=== PATIENT | female | born 1935 | race Hispanic/Latino ===

== ENCOUNTER 2017-10-31 00:01 | Inpatient (IN) | payer MEDICARE ==
[2017-10-31 00:17] VITALS: BMI 25.4
--- NOTE | 2017-10-31 00:22 | ED PDOC ---
Arrival/HPI <Lux Erazo - Last Filed: 10/31/17 01:03> <Delano Drew - Last Filed: 10/31/17 02:12> - General Time Seen by Provider: 10/31/17 00:09 - History of Present Illness Narrative History of Present Illness (Text): 10/31/17 00:19 Patient is a 82F with a PMH of Renal cell carcinoma with brain supervisor final, CAD, COPD, HBV, HTN, HLD, TIA, Seizures who comes to the ED with a CC of 7 bloody bowel movements today. She describes one previous episode earlier this year when she was admitted to a hospital in [place] where they observed her. Today she presents after finding bright red blood in the toilet. She has not other complaints at this time (Lux Erazo) Past Medical History - Infectious Disease Hx of Infectious Diseases: None - Tetanus Immunization Tetanus Immunization: Unknown - Cardiac Hx Coronary Artery Disease: Yes Hx Hypertension: Yes Hx Pacemaker: No - Pulmonary Hx Chronic Obstructive Pulmonary Disease (COPD): Yes - Neurological Hx Seizures: Yes (LAST SEIZURE APR 2015) Hx Transient Ischemic Attacks (TIA): Yes - HEENT Hx HEENT Disorder: Yes Hx Cataracts: Yes Other/Comment: HAS H/O RETINAL DETACHEMENT LEFT EYE - Renal Hx Renal Disorder: Yes Hx Renal Cancer: Yes - Endocrine/Metabolic Hx Endocrine Disorders: No - Hematological/Oncological Hx Blood Disorders: Yes Hx AIDS: No Hx Blood Transfusions: No Hx Blood Transfusion Reaction: No Hx Cancer: Yes (renal and brain cancer) - Integumentary Hx Dermatological Disorder: Yes 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) - Musculoskeletal/Rheumatological Hx Musculoskeletal Disorders: Yes Hx Falls: Yes (Last fall December 2016) Hx Unsteady Gait: Yes - Gastrointestinal Hx Gastrointestinal Disorders: Yes (Small bowel obstruction) Hx Hemorrhoids: Yes Other/Comment: Small bowel obstruction - Genitourinary/Gynecological Hx Genitourinary Disorders: No Hx Reproductive Disorders: No - Psychiatric Hx Depression: No Hx Substance Use: No - Surgical History Hx Coronary Stent: Yes ("many years ago") - Anesthesia Hx Anesthesia: Yes Hx Anesthesia Reactions: No Hx Malignant Hyperthermia: No - Suicidal Assessment Feels Threatened In Home Enviroment: No <Lux Erazo - Last Filed: 10/31/17 01:03> - Provider Review Nursing Documentation Reviewed: Yes <RajendraDelano - Last Filed: 10/31/17 02:12> Family/Social History Family/Social History: Unknown Family HX Smoking Status: Former Smoker Hx Alcohol Use: No Hx Substance Use: No Hx Substance Use Treatment: No <Lux Erazo - Last Filed: 10/31/17 01:03> - Physician Review Nursing Documentation Reviewed: Yes Family/Social History: Unknown Family HX <Delano Drew - Last Filed: 10/31/17 02:12> Allergies/Home Meds <Lux Erazo - Last Filed: 10/31/17 01:03> <RajendraDelano - Last Filed: 10/31/17 02:12> Allergies/Adverse Reactions: Allergies Penicillins Allergy (Verified 10/31/17 00:21) RASH tetanus and diphtheria toxoids [tetanus & diphtheria toxoids] Allergy (Verified 10/31/17 00:21) RASH/DIZZY Home Medications: Home Meds Medication Instructions Recorded Confirmed RX: Amlodipine Besylate [Norvasc] 5 mg PO DAILY 10/03/15 10/31/17 RX: Atorvastatin [Lipitor] 20 mg PO HS 10/03/15 10/31/17 RX: Lamotrigine [Lamictal] 150 mg PO BID 10/03/15 10/31/17 RX: Losartan [Cozaar] 50 mg PO DAILY 10/03/15 10/31/17 RX: Omeprazole 40 mg PO DAILY 10/03/15 10/31/17 Aspirin [Adult Low Dose Aspirin EC] 1 tab PO DAILY 10/31/17 10/31/17 Multivitamin with Iron [Daily Pa[place] 1 tab PO DAILY 10/31/17 10/31/17 with Iron] Review of Systems - Review of Systems Constitutional: Normal Eyes: Normal ENT: Normal Respiratory: Normal Cardiovascular: Normal Gastrointestinal: Hematochezia Genitourinary Female: Normal Musculoskeletal: Normal Skin: Normal Neurological: Normal Endocrine: Normal Hemo/Lymphatic: Normal Psychiatric: Normal <Lux Erazo - Last Filed: 10/31/17 01:03> - Physician Review All systems were reviewed & negative as marked: Yes <Delano Drew - Last Filed: 10/31/17 02:12> Physical Exam Temperature: Afebrile Blood Pressure: Normal Pulse: Regular Respiratory Rate: Normal Appearance: Positive for: Well-Appearing, Non-Toxic, Comfortable Pain Distress: None Mental Status: Positive for: Alert and Oriented X 3 - Systems Exam Head: Present: Atraumatic, Normocephalic Pupils: Present: PERRL Extroacular Muscles: Present: EOMI Conjunctiva: Present: Normal Mouth: Present: Moist Mucous Membranes Neck: Present: Normal Range of Motion Respiratory/Chest: Present: Clear to Auscultation, Good Air Exchange. No: Respiratory Distress, Accessory Muscle Use Cardiovascular: Present: Regular Rate and Rhythm, Normal S1, S2. No: Murmurs Abdomen: Present: Tenderness, Normal Bowel Sounds. No: Distention, Peritoneal Signs Upper Extremity: Present: Normal Inspection. No: Cyanosis, Edema Lower Extremity: Present: Normal Inspection Neurological: Present: GCS=15, CN II-XII Intact, Speech Normal Skin: Present: Warm, Dry, Rashes, Normal Color Psychiatric: Present: Alert, Oriented x 3, Normal Insight <Lux Erazo - Last Filed: 10/31/17 01:03> Medical Decision Making <Lux Erazo - Last Filed: 10/31/17 01:03> <Delano Drew - Last Filed: 10/31/17 02:12> ED Course and Treatment: 10/31/17 01:07 Type and cross H/H is within normal limits. Admit for observation (Lux Erazo) Impression: Pt seen and evaluated with front office medical assistant. Aware and agree with HPI, clinical findings, plan, and management. Pt, whose past medical history includes renal cell carcinoma, CAD, COPD, Hepatitis B, hypertension, hyperlipidemia, TIA, and seizures, presented for multiple episodes of hematochezia today. Plan: -- Labs, blood type and screen -- Chest X-ray -- IV fluids -- Reassess and disposition 10/31/17 01:09 Case discussed with front office medical assistant natural resource economist, who is aware and agrees with plan. (Delano Drew) - Lab Interpretations Lab Results: 10/31/17 00:40 10/31/17 00:40 Lab Results 10/31/17 00:40: Sodium 142, Potassium 3.9, Chloride 104, Carbon Dioxide 31, Anion Gap 11, BUN 17, Creatinine 0.9, Est GFR ( Amer) > 60, Est GFR (Non- Af Amer) 60, Random Glucose 98, Calcium 10.6 H, Magnesium 2.2, Total Bilirubin 0.4, AST 28, ALT 24, Alkaline Phosphatase 60, Total Protein 6.9, Albumin 4.0, Globulin 2.9, Albumin/Globulin Ratio 1.4 10/31/17 00:40: PT 11.0, INR 0.97, APTT 26.3 10/31/17 00:40: WBC 5.1, RBC 4.56, Hgb 13.9, Hct 42.8, MCV 93.9, MCH 30.5, MCHC 32.5, RDW 14.2, Plt Count 196, MPV 10.0, Gran % 52.3, Lymph % (Auto) 35.1 H, [place] % (Auto) 9.7 H, Eos % (Auto) 2.5, Baso % (Auto) 0.4, Gran # 2.68, Lymph # ( Auto) 1.8, [place] # (Auto) 0.5, Eos # (Auto) 0.1, Baso # (Auto) 0.02 - RAD Interpretation Radiology Orders: 10/31/17 00:38 CXR [CHEST PORTABLE] [RAD] Stat - Medication Orders Current Medication Orders: Discontinued Medications Sodium Chloride (Sodium Chloride 0.9%) 500 mls @ 999 mls/hr IV .Q31M STA Stop: 10/31/17 00:53 - PA / SUPERVISOR [employer]MENT / Resident Statement AKI has reviewed & agrees with the documentation as recorded. AKI has examined the patient and agrees with the treatment plan. <Lux Erazo - Last Filed: 10/31/17 01:03> - PA / SUPERVISOR [employer]MENT / Resident Statement AKI has reviewed & agrees with the documentation as recorded. AKI has examined the patient and agrees with the treatment plan. <Delano Drew - Last Filed: 10/31/17 02:12> Disposition/Present on Arrival - Present on Arrival Any Indicators Present on Arrival: No History of DVT/PE: No History of Uncontrolled Diabetes: No Urinary Catheter: No History Surgical Site Infection Following: None - Disposition Have Diagnosis and Disposition been Completed?: Yes Disposition Time: 01:08 Patient Plan: Observation <Lux Erazo - Last Filed: 10/31/17 01:03> <Delano Drew - Last Filed: 10/31/17 02:12> - Disposition Diagnosis: LGI bleed Disposition: HOSPITALIZED Patient Problems: Current Active Problems Problem Status Onset LGI bleed Acute Condition: GUARDED
[2017-10-31] MEDS ORDERED: Sodium Chloride 0.9% 500 ML IV STA (00:23)
[2017-10-31 00:51] LABS: BASO # 0.02 K/mm3 (0.0-2.0); BASO % 0.4 % (0.0-3.0); EOS # 0.1 (0.0-0.7); EOS % 2.5 % (1.5-5.0); GRAN # 2.68 (1.4-6.5); GRAN % 52.3 % (50.0-68.0); HEMOGLOBIN 13.9 g/dL (12.0-16.0); LYMPH # 1.8 (1.2-3.4); LYMPH % 35.1 % (22.0-35.0); MEAN CELL VOLUME 93.9 fl (80.0-105.0); MEAN CORPUSCULAR HEMOGLOBIN 30.5 pg (25.0-35.0); MEAN CORPUSCULAR HGB CONC 32.5 g/dl (31.0-37.0); MONO # 0.5 (0.1-0.6); MONO % 9.7 % (1.0-6.0); RBC 4.56 10^6/uL (3.5-6.1); RED CELL DISTRIBUTION WIDTH 14.2 % (11.5-14.5); WHITE BLOOD COUNT 5.1 10^3/ul (4.5-11.0)
[2017-10-31 01:00] LABS: ALB/GLOB RATIO 1.4 (1.1-1.8); ALT/SGPT 24 U/L (7-56); AST/SGOT 28 U/L (14-36); BLOOD UREA NITROGEN 17 mg/dL (7-21); CALCIUM 10.6 mg/dL (8.4-10.5); GFR AFRICAN-AMERICAN > 60; GFR NON-AFRICAN AMERICAN 60
[2017-10-31 01:04] LABS: INR 0.97 (0.93-1.08)
[2017-10-31 01:05] LABS: PARTIAL THROMBOPLASTIN TIME 26.3 Seconds (25.1-36.5)
--- NOTE | 2017-10-31 01:59 | CP.PCM.HP ---
<Juan Antonio Alexandra - Last Filed: 10/31/17 04:00> History of Present Illness - History of Present Illness History of Present Illness: Chief Complaint: Hematuria and bloody diarrhea HPI: Patient is an 82 year old female with a past medical history of renal cancer (resected w/o chemo/radiation Rx) with brain and nasal skin metastasis, coronary artery disease, diverticulitis, COPD, HBV, hypertension, hyperlipidemia , TIA, Seizures presenting with complaints of hematuria and bloody diarrhea which began on 10/30 around 2 p.m. As per patient she had about 8 episodes of bloody diarrhea. Picture was shown which revealed sara blood in toilet bowl as well as in stool. Patient states she experienced a similar episode in the beginning of September 2017. Patient at the time was seen and observed at a hospital in [place] overnight. Patient followed up with her GI physician Dr. Lai who stated to go to the ED if episode were to occur again. Patient did not follow up with Dr. Linares her receiving specialist/oncologist regarding hematuria in early September. Patient denies dizziness, shortness of breath, abdominal pain, dysuria, increased frequency/urgency, chest pain, fevers, chills, vision changes , nausea, vomiting. PMD: Dr. Hernandez Meds: reviewed Allergies: Penicillins, tetanus and diphtheria toxins PSH: Craniotomy, Coronary stent, hernia repair, removal of renal malignancy FHx: son- due to Lung and Brain Ca at age 55; h/o tobacco abuse SHx: Previous smoker (quit 23 years ago), social alcohol use, denies illicit drug use Labs: WBC 5.1, Hgb 13.9, Hematocrit 42.8, Plt 196, PT 11, INR 0.97, PTT 26.3, Sodium 142, Potassium 3.9, Chloride 104, Bicarbonate 31, BUN 17, Cr 0.9, AST 28 , ALT 24, Alk phos 60 PET scan 08/2017: revealed no evidence of metastasis in head, neck, chest, abdomen, pelvis Present on Admission - Present on Admission Any Indicators Present on Admission: No Review of Systems - Constitutional Constitutional: absent: Anorexia, Chills, Fever, Headache - EENT Eyes: absent: Blurred Vision, Change in Vision Ears: absent: Dizziness - Cardiovascular Cardiovascular: absent: Chest Pain, Diaphoresis, Dyspnea - Respiratory Respiratory: absent: Cough, Dyspnea, Wheezing - Gastrointestinal Gastrointestinal: Diarrhea, Hematochezia, Loose Stools. absent: Abdominal Pain , Hematemesis, Nausea, Vomiting - Genitourinary Genitourinary: Hematuria. absent: Change in Urinary Stream, Difficulty Urinating, Dysuria, Urinary Frequency, Urinary Urgency - Musculoskeletal Musculoskeletal: absent: Arthralgias, Back Pain - Integumentary Integumentary: absent: Changing Lesions, Skin Pain - Neurological Neurological: absent: Disequilibrium, Dizziness, Headaches, Syncope - Psychiatric Psychiatric: absent: Anxiety, Change in Appetite - Endocrine Endocrine: absent: Fatigue, Flushing Past Patient History - Infectious Disease Hx of Infectious Diseases: None - Tetanus Immunizations Tetanus Immunization: Unknown - Past Medical History & Family History Past Medical History?: Yes - Past Social History Smoking Status: Former Smoker - CARDIAC Hx Hypertension: Yes Hx Pacemaker: No - PULMONARY Hx Chronic Obstructive Pulmonary Disease (COPD): Yes - NEUROLOGICAL Hx Seizures: Yes (LAST SEIZURE APR 2015) Hx Transient Ischemic Attacks (TIA): Yes - HEENT Hx HEENT Problems: Yes Hx Cataracts: Yes Other/Comment: HAS H/O RETINAL DETACHEMENT LEFT EYE - RENAL Hx Chronic Kidney Disease: Yes Hx Renal (Kidney) Cancer: Yes - ENDOCRINE/METABOLIC Hx Endocrine Disorders: No - HEMATOLOGICAL/ONCOLOGICAL Hx Blood Disorders: Yes Hx AIDS: No Hx Blood Transfusions: No Hx Blood Transfusion Reaction: No Hx Cancer: Yes (renal and brain cancer) - INTEGUMENTARY Hx Dermatological Problems: Yes 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) - MUSCULOSKELETAL/RHEUMATOLOGICAL Hx Musculoskeletal Disorders: Yes Hx Falls: Yes (Last fall December 2016) Hx Unsteady Gait: Yes - GASTROINTESTINAL Hx Gastrointestinal Disorders: Yes (Small bowel obstruction) Hx Hemorrhoids: Yes Other/Comment: Small bowel obstruction - GENITOURINARY/GYNECOLOGICAL Hx Genitourinary Disorders: No Hx Reproductive Disorders: No - PSYCHIATRIC Hx Depression: No Hx Substance Use: No - SURGICAL HISTORY Hx Coronary Stent: Yes ("many years ago") - ANESTHESIA Hx Anesthesia: Yes Hx Anesthesia Reactions: No Hx Malignant Hyperthermia: No Meds Allergies/Adverse Reactions: Allergies Allergy/AdvReac Type Severity Reaction Status Date / Time Penicillins Allergy RASH Verified 10/31/17 00:21 tetanus and diphtheria Allergy RASH/DIZZY Verified 10/31/17 00:21 toxoids [tetanus & diphtheria toxoids] Physical Exam - Head Exam Head Exam: ATRAUMATIC, NORMAL INSPECTION, NORMOCEPHALIC - Eye Exam Eye Exam: EOMI, Normal appearance - ENT Exam ENT Exam: Mucous Membranes Moist, Normal Exam - Neck Exam Neck exam: Positive for: Normal Inspection - Respiratory Exam Respiratory Exam: Clear to Auscultation Bilateral, Rales (lower left lobe), NORMAL BREATHING PATTERN. absent: Rhonchi, Wheezes - Cardiovascular Exam Cardiovascular Exam: REGULAR RHYTHM, +S1, +S2 - GI/Abdominal Exam GI & Abdominal Exam: Normal Bowel Sounds, Soft - Neurological Exam Neurological exam: Alert, CN II-XII Intact, Oriented x3 - Psychiatric Exam Psychiatric exam: Normal Affect, Normal Mood - Skin Skin Exam: Intact, Normal Color, Warm Results - Labs Result Diagrams: 10/31/17 00:40 10/31/17 00:40 Labs: Laboratory Results - last 24 hr 10/31/17 10/31/17 10/31/17 00:40 00:40 00:40 WBC 5.1 RBC 4.56 Hgb 13.9 Hct 42.8 MCV 93.9 MCH 30.5 MCHC 32.5 RDW 14.2 Plt Count 196 MPV 10.0 Gran % 52.3 Lymph % (Auto) 35.1 H [place] % (Auto) 9.7 H Eos % (Auto) 2.5 Baso % (Auto) 0.4 Gran # 2.68 Lymph # (Auto) 1.8 [place] # (Auto) 0.5 Eos # (Auto) 0.1 Baso # (Auto) 0.02 PT 11.0 INR 0.97 APTT 26.3 Sodium 142 Potassium 3.9 Chloride 104 Carbon Dioxide 31 Anion Gap 11 BUN 17 Creatinine 0.9 Est GFR ( Amer) > 60 Est GFR (Non-Af Amer) 60 Random Glucose 98 Calcium 10.6 H Magnesium 2.2 Total Bilirubin 0.4 AST 28 ALT 24 Alkaline Phosphatase 60 Total Protein 6.9 Albumin 4.0 Globulin 2.9 Albumin/Globulin Ratio 1.4 Assessment & Plan - Assessment and Plan (Free Text) Assessment: Patient is an 82 year old female with a past medical history of renal cancer ( resected w/o chemo/radiation Rx) with brain and nasal skin metastasis, coronary artery disease, diverticulitis, COPD, HBV, hypertension, hyperlipidemia, TIA, Seizures presenting with complaints of hematuria and bloody diarrhea. Plan: Bloody Diarrhea -R/O Mets -Gastroenterology consulted; Dr. Lai -H&H currently stable, series ordered; continue to monitor -NPO except meds -Protonix 40 mg q12h -Coag studies -Hold home aspirin Hematuria -History of renal cancer -Hematology/oncology consulted; Dr. Linares -Renal function within normal limits -Continue to monitor -CT abdomen/pelvis ordered; results pending Hx of brain mets from renal cancer -C/w lamictal Hypertension -Continue with norvasc and cozaar Hyperlipidemia -Continue with statin DVT/GI prophylaxis: SCDs/Protonix <GalBankimchan - Last Filed: 10/31/17 06:59> Results - Vital Signs Recent Vital Signs: Last Vital Signs Temp 98.2 F 10/31/17 03:56 Pulse 78 10/31/17 03:56 Resp 20 10/31/17 03:56 BP 123/69 10/31/17 03:56 Pulse Ox 100 10/31/17 03:07 - Labs Result Diagrams: 10/31/17 00:40 10/31/17 00:40 Labs: Laboratory Results - last 24 hr 10/31/17 03:08 Blood Type O NEGATIVE Antibody Screen Negative BBK History Checked Patient has bt Attending/Attestation - Attestation I have personally seen and examined this patient.: Yes I have fully participated in the care of the patient.: Yes I have reviewed all pertinent clinical information: Yes Notes (Text): 10/31/17 06:52 Patient was seen when she was in bed # 3 in the ER. Medical record was reviewed. Agree with history ,physical examination, assessment and plan.
[2017-10-31] MEDS: Sodium Chloride 0.9% 1,000 ML IV SCH (04:07)
[2017-10-31 07:40] LABS: BASO # 0.03 K/mm3 (0.0-2.0); BASO % 0.7 % (0.0-3.0); EOS # 0.1 (0.0-0.7); EOS % 2.4 % (1.5-5.0); GRAN # 1.87 (1.4-6.5); LYMPH # 2.2 (1.2-3.4); LYMPH % 48.7 % (22.0-35.0); MEAN CELL VOLUME 94.1 fl (80.0-105.0); MEAN CORPUSCULAR HEMOGLOBIN 29.8 pg (25.0-35.0); MEAN CORPUSCULAR HGB CONC 31.7 g/dl (31.0-37.0); MONO # 0.3 (0.1-0.6); MONO % 7.2 % (1.0-6.0); RBC 3.92 10^6/uL (3.5-6.1); RED CELL DISTRIBUTION WIDTH 14.6 % (11.5-14.5); WHITE BLOOD COUNT 4.6 10^3/ul (4.5-11.0)
[2017-10-31 07:43] LABS: HEMOGLOBIN 11.7 g/dL (12.0-16.0)
[2017-10-31 07:44] LABS: INR 1.01 (0.93-1.08); PARTIAL THROMBOPLASTIN TIME 26.1 Seconds (25.1-36.5); PROTHROMBIN TIME 11.6 SECONDS (9.4-12.5)
[2017-10-31 08:07] LABS: ALB/GLOB RATIO 1.3 (1.1-1.8); ALBUMIN 3.2 g/dL (3.0-4.8); ALT/SGPT 23 U/L (7-56); AST/SGOT 21 U/L (14-36); BLOOD UREA NITROGEN 18 mg/dL (7-21); CALCIUM 9.7 mg/dL (8.4-10.5); GFR AFRICAN-AMERICAN > 60; GFR NON-AFRICAN AMERICAN 60
--- NOTE | 2017-10-31 09:32 | RAD ---
HISTORY: sob COMPARISON: Chest radiographs 06/10/2017 FINDINGS: LUNGS: No active pulmonary disease. A calcified granuloma or lymph node is favored over costochondral calcification at the medial right lung base once again, unchanged in appearance. PLEURA: No significant pleural effusion identified, no pneumothorax apparent. CARDIOVASCULAR: Borderline cardiomegaly. No pulmonary vascular derangement identified. OSSEOUS STRUCTURES: No significant abnormalities. VISUALIZED UPPER ABDOMEN: Normal. OTHER FINDINGS: None. IMPRESSION: No interval acute cardiopulmonary disease appreciated.
--- NOTE | 2017-10-31 11:11 | CT ---
PROCEDURE: CT Abdomen and Pelvis without intravenous contrast HISTORY: hematuria/GI bleed COMPARISON: Chest abdomen and pelvis CT with contrast 04/09/2017. TECHNIQUE: Helical CT of the abdomen and pelvis was performed without oral or intravenous contrast as per referring physician request. Contrast Dose: None Radiation dose: Total exam DLP = 351.57 mGy-cm. This CT exam was performed using one or more of the following dose reduction techniques: Automated exposure control, adjustment of the mA and/or kV according to patient size, and/or use of iterative reconstruction technique. FINDINGS: LOWER THORAX: Emphysematous changes are reiterated at the visualized bilateral lung bases. No definite acute findings. Cardiomegaly is stable. No pleural or pericardial effusion. Calcified granuloma again seen at the right lower lobe base. Small hiatal hernia reiterated. LIVER: Stable small lucency at the right hepatic lobe dome with liver otherwise unremarkable appearing. GALLBLADDER AND BILE DUCTS: Unremarkable. PANCREAS: Unremarkable. No gross lesion or ductal dilatation. SPLEEN: Unremarkable. ADRENALS: Unremarkable. No mass. KIDNEYS AND URETERS: No obstructive uropathy bilaterally. Postop changes seen at the upper midpole left kidney impression the site of prior mass seen in left kidney 04/09/2017. Contour regularity appears to been removed surgically. Internal parenchyma of the left kidney is homogeneous and nonfocal but is better characterized by contrast CT. No radiodense urolithiasis identified bilaterally. No significant perinephric reaction identified either. VASCULATURE: Extensive non aneurysmal aortic atherosclerosis again appreciated. BOWEL: Prominent fecal loading is seen throughout the majority of large bowel scattered colonic diverticular changes again seen diffusely but mostly at the sigmoid segment without overt CT sign of diverticulitis in this unenhanced examination. Rectal mural thickening is not excluded however the mid slow rectum is collapsed. APPENDIX: Not identified. No definite CT pattern of appendicitis. PERITONEUM: Unremarkable. No free fluid. No free air. LYMPH NODES: Unremarkable. No enlarged lymph nodes. BLADDER: Unremarkable. REPRODUCTIVE: Fibroid uterine disease reiterated. BONES: No acute fracture. OTHER FINDINGS: None. IMPRESSION: 1. No radiodense urolithiasis involving either kidney or the urinary bladder. Postop changes are suggested involving the left kidney at the site of prior poorly enhancing mass seen in prior CT 04/09/17. Lack of iv contrast limits evaluation of renal parenchyma bilaterally. No obstructive uropathy. 2. Stable hepatic dome lucency. 3. Fibroid uterine changes reiterated. 4. Other lesser findings as per above.
[2017-10-31] MEDS ORDERED: Pneumococcal 23-Valent Vaccine IM ONE (11:32)
[2017-10-31 11:37] LABS: HEMOGLOBIN 11.3 g/dL (12.0-16.0)
[2017-10-31] MEDS ORDERED: Peg-Electrolyte Oral Soln 4L (Golytely) PO ONE (14:00)
--- NOTE | 2017-10-31 16:50 | CON ---
DATE: 10/31/2017 GASTROENTEROLOGY CONSULTATION REQUESTING PHYSICIAN: Mario Carlos MD REASON FOR CONSULTATION: I have been asked to see this 82-year-old female with known history of left renal cancer status post resection with known metastases to the skull and nose, who comes to the hospital with a 2-day history of rectal bleeding. The patient had several episodes of rectal bleeding at home. She denies any aspirin, nonsteroidal use or use of anticoagulants. The patient apparently had a similar episode several weeks ago, for which she was hospitalized overnight in [place]. The patient also noted hematuria. She denies any abdominal pain, nausea, vomiting, fevers, or chills. The patient did have a colonoscopy back in 09/2013, which revealed diverticulosis. She denies any chest pain or shortness of breath. PAST MEDICAL HISTORY: Notable for renal cell carcinoma with mets to the skull and nose. She also has a history of hypertension and hypercholesterolemia. SOCIAL HISTORY: She denies cigarette smoking or alcohol use. REVIEW OF SYSTEMS: A 14-point review of systems is notable for rectal bleeding and hematuria. ALLERGIES: THE PATIENT IS ALLERGIC TO PENICILLIN, TETANUS, AND DIPHTHERIA TOXOIDS. MEDICATIONS AT HOME: Include Norvasc, omeprazole, losartan, Lamictal, atorvastatin, polyethylene glycol, multivitamin. PHYSICAL EXAMINATION: GENERAL: Well-developed female, lying in bed, in no acute distress. VITAL SIGNS: Reveal temperature of 98.2, blood pressure 117/69, heart rate 78. HEENT: Reveal the sclerae to be white. Conjunctivae pink. NECK: Supple. CHEST: Lungs are clear. HEART: Reveals a regular rate and rhythm. ABDOMEN: Soft, nontender. No mass. EXTREMITIES: Show no edema. RECTAL: Shows a presence of dark red blood. No masses seen. LABORATORY DATA: Reveals white blood cell count 4.6, hemoglobin 11.7, and platelet count of 176,000. Her hemoglobin is down from 13.9 approximately 6 hours earlier on admission to the hospital. Chemistries reveal chloride of 112. BUN 18, creatinine 0.9. IMPRESSION: 1. An 82-year-old female with a history of renal cell carcinoma with metastases to the skull and nose with one day of rectal bleeding. I suspect that this is a diverticular bleed. 2. Hematuria. RECOMMENDATIONS: 1. I will schedule the patient for a colonoscopy for the morning. 2. Urology evaluation for hematuria. Dawit Lai MD
[2017-10-31 17:28] LABS: HEMOGLOBIN 11.4 g/dL (12.0-16.0)
--- NOTE | 2017-10-31 23:17 | CARD ---
APPROVED REPORT EKG Measurement Heart [id number] <Conclusion> Sinus rhythm with 1st degree AV block Possible Left atrial enlargement Left axis deviation Left bundle branch block Abnormal ECG
[2017-11-01 00:23] LABS: HEMOGLOBIN 9.3 g/dL (12.0-16.0)
--- NOTE | 2017-11-01 01:47 | CON ---
DATE: 10/31/2017 Consult on the medical floor. For Dr. Linares. CHIEF COMPLAINT: Rectal bleeding. 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 The patient otherwise without complaint. Denies any pain. She was seen resting comfortably, in no acute distress this visit. PAST MEDICAL HISTORY: Significant for renal cancer with seizure disorder; history of TIA; hypertension; hyperlipidemia; GERD; peripheral neuropathy; coronary artery disease with stenting; osteoporosis; right inguinal hernia repair, recent repair; cranioplasty, status post craniectomy for brain tumor by Dr. 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 ALLERGIES: PENICILLIN, TETANUS, AND DIPHTHERIA TOXOIDS. MEDICATIONS: At this time include losartan, Lamictal, Lipitor, Norvasc, Protonix. FAMILY AND SOCIAL HISTORY: Her son due to lung and brain cancer at age 55. History of tobacco use. 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 Patient quit smoking approximately 23 years prior, rare alcohol use, otherwise noncontributory. REVIEW OF SYSTEMS: A 12-point review of systems is done, which is negative to question except for items mentioned in the history of present illness. Patient had a CT scan of her abdomen and pelvis without contrast earlier today. It was read as no radiodense urolithiasis involving either kidney or the urinary bladder, postop changes are suggested involving left kidney at the side of the prior poorly enhanced mass seen in prior CAT scan in April 2017. Lack of IV limits the evaluation, save hepatic dome lucency, fibroid uterine changes reiterated. Her chest x-ray with no active disease. EKG is pending. It should be known patient had a PET CT scan done on 08/25/2017, the impression was metastasis in the head, neck, chest, abdomen, and pelvis. 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 LABORATORY DATA: Patient's labs were done, on admission, white blood cell count of 5.1, hemoglobin of 13.9, hematocrit of 42.8, platelet count of 196,000 with serial hemoglobin showing a hemoglobin of 11.7 at 6:30 this morning, 11.3 value at 11:10 this morning. Her INR is 1.01 with a chem metabolic panel completely within normal range. Her stool for C. difficile was just done, negative for C. difficile antigen and toxin. ASSESSMENT: Acute rectal bleed, questionable hematuria with urinalysis pending. History of seizure disorder, history of cerebrovascular accident, history of renal cancer with brain metastasis, coronary artery, chronic obstructive pulmonary disease, hypertension. PLAN: The plan for this patient is to continue present medical regimen with workup to include serial H and H, at present stable. We will also concur with followup with Dr. Ayala for colonoscopy in a.m. The patient is to continue her present medical regimen as per her attending doctor with further workup as indicated. At present, she is resting comfortably on oxygen 2 liters nasal cannula. Ice chips to keep her oral mucosa moist. We will check a CEA along with iron saturation, TIBC, and ferritin. The prognosis for this patient is guarded. Again, we will type and cross for 2 units of packed red blood cells, keep them on hold with consideration for transfusion should be indicated. This is a complex patient with a comprehensive medically necessary and appropriate visit carried out in excess of 1 hour time in reviewing her records and examining the patient, speaking to patient's nurses regarding her care with her questions answered to her satisfaction. Prognosis for this patient is guarded. We will monitor clinically with labs. Juan Lambert MD
[2017-11-01] MEDS: Sodium Chloride 0.9% 1,000 ML IV SCH (02:27)
[2017-11-01 07:07] LABS: IRON 44 ug/dL (45-180)
[2017-11-01 07:08] LABS: BASO # 0.02 K/mm3 (0.0-2.0); BASO % 0.6 % (0.0-3.0); EOS # 0.1 (0.0-0.7); EOS % 2.6 % (1.5-5.0); GRAN # 1.16 (1.4-6.5); GRAN % 37.3 % (50.0-68.0); HEMOGLOBIN 9.2 g/dL (12.0-16.0); LYMPH # 1.6 (1.2-3.4); LYMPH % 52.1 % (22.0-35.0); MEAN CELL VOLUME 94.4 fl (80.0-105.0); MEAN CORPUSCULAR HEMOGLOBIN 30.4 pg (25.0-35.0); MEAN CORPUSCULAR HGB CONC 32.2 g/dl (31.0-37.0); MEAN PLATELET VOLUME 9.9 fl (7.0-11.0); MONO # 0.2 (0.1-0.6); MONO % 7.4 % (1.0-6.0); RBC 3.03 10^6/uL (3.5-6.1); RED CELL DISTRIBUTION WIDTH 14.7 % (11.5-14.5); WHITE BLOOD COUNT 3.1 10^3/ul (4.5-11.0)
[2017-11-01 07:16] LABS: ALB/GLOB RATIO 1.2 (1.1-1.8); ALBUMIN 2.7 g/dL (3.0-4.8); ALT/SGPT 24 U/L (7-56); AST/SGOT 19 U/L (14-36); BLOOD UREA NITROGEN 12 mg/dL (7-21); CALCIUM 9.4 mg/dL (8.4-10.5); GFR AFRICAN-AMERICAN > 60; GFR NON-AFRICAN AMERICAN > 60
[2017-11-01 07:17] LABS: % IRON SATURATION 16 % (20-55); TOTAL IRON BINDING CAPACITY 279 ug/dL (265-497)
[2017-11-01 07:26] LABS: INR 1.07 (0.93-1.08); PARTIAL THROMBOPLASTIN TIME 26.3 Seconds (25.1-36.5); PROTHROMBIN TIME 12.3 SECONDS (9.4-12.5)
--- NOTE | 2017-11-01 08:41 | CP.PCM.PN ---
Subjective - Date & Time of Evaluation Date of Evaluation: 11/02/17 Time of Evaluation: 07:30 - Subjective Subjective: Heme-onc Progress Note, Leo Marques DO, PGY-2 IM This is an 82 yo F with PMH of renal cancer (resected w/o chemo/radiation Rx) with brain and nasal skin metastasis, coronary artery disease, diverticulitis, COPD, HBV, hypertension, hyperlipidemia, TIA, and seizures who presented with complaints of bloody diarrhea and possible hematuria which began 1 day JOB CHECKER. Heme-onc was consulted for possible hematuria in setting of hx of renal cancer. Patient seen and examined at bedside with daughter present in room. Reports never actually hematuria, just concurrent bloody watery diarrhea with urination. No BM since last night at 10pm (last dose of bowel prep for colonoscopy today), and multiple episodes of clear urination since then. Sometime clots and sometimes just dark blood in toilet bowel when still having bloody diarrhea as per daughter. Patient denies lightheadedness or dizziness at rest in bed, describes orthostatic hypotensive sx when standing up at home but knows to stand still and wait to pass, and both pt and daughter report patient only ever ambulates with family member nearby for help, mimi after using the toilet. Denies shortness of breath, chest pain, nausea, emesis. Objective - Vital Signs/Intake and Output Vital Signs (last 24 hours): Temp Pulse Resp BP Pulse Ox 97.5 F L 81 20 147/76 93 L 10/31/17 16:27 10/31/17 16:27 10/31/17 16:27 10/31/17 16:27 10/31/17 16:27 Intake and Output: 11/01/17 11/01/17 06:59 18:59 Intake Total 0 Balance 0 - Medications Medications: Current Medications Amlodipine Besylate (Norvasc) 5 mg PO DAILY [facility] Last Admin: 10/31/17 09:34 Dose: 5 mg Atorvastatin Calcium (Lipitor) 20 mg PO HS [facility] Last Admin: 10/31/17 21:32 Dose: 20 mg Sodium Chloride (Sodium Chloride 0.9%) 1,000 mls @ 100 mls/hr IV .Q10H [facility] Last Admin: 11/01/17 02:27 Dose: Not Given Potassium Chloride 10 meq/ (Sodium Chloride) 1,005 mls @ 100 mls/hr IV .Q10H3M [facility] Last Admin: 10/31/17 16:22 Dose: 100 mls/hr Lamotrigine (Lamictal) 150 mg PO BID [facility] PRN Reason: Protocol Last Admin: 10/31/17 17:31 Dose: 150 mg Losartan Potassium (Cozaar) 50 mg PO DAILY [facility] Last Admin: 10/31/17 10:43 Dose: 50 mg Pantoprazole Sodium (Protonix Inj) 40 mg IVP Q12 [facility] Last Admin: 10/31/17 21:32 Dose: 40 mg - Labs Labs: 11/01/17 06:20 11/01/17 06:20 PT 12.3 SECONDS (9.4-12.5) 11/01/17 06:20 INR 1.07 (0.93-1.08) 11/01/17 06:20 APTT 26.3 Seconds (25.1-36.5) 11/01/17 06:20 - Constitutional Appears: Non-toxic, No Acute Distress - Head Exam Head Exam: ATRAUMATIC, NORMAL INSPECTION, NORMOCEPHALIC - Eye Exam Eye Exam: EOMI, Normal appearance. absent: Conjunctival injection, Scleral icterus Pupil Exam: absent: Irregular, Unequal - ENT Exam ENT Exam: Mucous Membranes Moist - Neck Exam Neck Exam: Full ROM, Normal Inspection - Respiratory Exam Respiratory Exam: Clear to Ausculation Bilateral, NORMAL BREATHING PATTERN. absent: Rales, Rhonchi, Wheezes - Cardiovascular Exam Cardiovascular Exam: REGULAR RHYTHM, RRR, +S1, +S2. absent: Bradycardia, Tachycardia, Irregular Rhythm, JVD, +S4 - GI/Abdominal Exam GI & Abdominal Exam: Soft, Hyperactive Bowel Sounds. absent: Firm, Guarding, Rigid, Tenderness, Diminished Bowel Sounds, Hypoactive Bowel Sounds, Normal Bowel Sounds, Pulsatile Mass, Rebound - Extremities Exam Extremities Exam: Normal Capillary Refill, Normal Inspection. absent: Calf Tenderness - Back Exam Back Exam: absent: CVA tenderness (L), CVA tenderness (R) - Neurological Exam Neurological Exam: Alert, Awake, Oriented x3 - Psychiatric Exam Psychiatric exam: Normal Affect, Normal Mood - Skin Skin Exam: Dry, Intact, Normal Color, Pallor (mild conjuncival pallor, otherwise normal color), Warm Assessment and Plan - Assessment and Plan (Free Text) Assessment: This is an 82 yo F with PMH of renal cancer (resected w/o chemo/radiation Rx) with brain and nasal skin metastasis, coronary artery disease, diverticulitis, COPD, HBV, hypertension, hyperlipidemia, TIA, and seizures who presented with complaints of bloody diarrhea and possible hematuria which began 1 day JOB CHECKER. Heme-onc was consulted for possible hematuria in setting of hx of renal cancer. Plan: Anemia- worsened Hx renal carcinoma s/p partial nephrectomy and chemo/rads, mets to brain and nasal mucosa BRBPR Hx Diverticular bleeds Hx CVA Hx seizures -From new description from daughter at bedside, never hematuria, only BRBPR -As per GI, hx of diverticular bleed, likely again diverticular bleed, pending colonscopy today -2 units pRBCs on hold currently, Hgb decreased from 11.7 to 9.2, but not tachycardic or hypotensive, may be dilutional effect from fluids vs hemoconcentrated prior to arrival, continue to monitor as per Dr. Linares -Pet Scan Aug 2017 showed no new mets -Iron panel notable for iron 44, tibc 279, %sat 16 -Pending CEA Patient reviewed and discussed with attending, Dr. Linares
[2017-11-01] MEDS ORDERED: Sodium Chloride 0.9% 1,000 ML IV SCH (10:30)
[2017-11-01] MEDS ORDERED: Etomidate 20 mg/10ml Inj IV ONE (10:35)
[2017-11-01] MEDS ORDERED: Midazolam 2 MG/2 ML VIAL ONE ×2 (10:35→10:39)
[2017-11-01] MEDS ORDERED: Propofol 10 mg/ml Inj (20 ML) ONE (10:36)
[2017-11-01 11:18] VITALS: TEMP 97.9
[2017-11-01] MEDS ORDERED: Potassium & Sodium Phosphate PO ONE ×2 (11:30→14:00)
[2017-11-02 06:56] LABS: BASO # 0.03 K/mm3 (0.0-2.0); BASO % 0.9 % (0.0-3.0); EOS # 0.1 (0.0-0.7); EOS % 3.6 % (1.5-5.0); GRAN # 1.19 (1.4-6.5); GRAN % 35.5 % (50.0-68.0); HEMOGLOBIN 8.8 g/dL (12.0-16.0); LYMPH # 1.8 (1.2-3.4); LYMPH % 53.1 % (22.0-35.0); MEAN CELL VOLUME 94.9 fl (80.0-105.0); MEAN CORPUSCULAR HEMOGLOBIN 30.1 pg (25.0-35.0); MEAN CORPUSCULAR HGB CONC 31.8 g/dl (31.0-37.0); MEAN PLATELET VOLUME 9.8 fl (7.0-11.0); MONO # 0.2 (0.1-0.6); MONO % 6.9 % (1.0-6.0); RBC 2.92 10^6/uL (3.5-6.1); RED CELL DISTRIBUTION WIDTH 14.7 % (11.5-14.5); WHITE BLOOD COUNT 3.4 10^3/ul (4.5-11.0)
[2017-11-02 07:22] LABS: ALB/GLOB RATIO 1.2 (1.1-1.8); ALBUMIN 2.7 g/dL (3.0-4.8); ALT/SGPT 26 U/L (7-56); AST/SGOT 23 U/L (14-36); BLOOD UREA NITROGEN 12 mg/dL (7-21); CALCIUM 9.7 mg/dL (8.4-10.5); GFR AFRICAN-AMERICAN > 60; GFR NON-AFRICAN AMERICAN 60
[2017-11-02 07:36] LABS: INR 0.99 (0.93-1.08); PARTIAL THROMBOPLASTIN TIME 26.7 Seconds (25.1-36.5); PROTHROMBIN TIME 11.4 SECONDS (9.4-12.5)
[2017-11-02 08:16] VITALS: BP 133/81; PULSE 73; RESP 18; O2SAT 94
[2017-11-02] MEDS ORDERED: POLYETHYLENE GLYCOL 3350 17 GM/Dose PACKET PO ONE ×2 (08:39→10:50)
--- NOTE | 2017-11-02 16:16 | PN ---
DATE: 11/02/2017 SUBJECTIVE: The patient is sitting in chair, comfortable. She denies any further GI bleeding. She is tolerating solid foods. OBJECTIVE: VITAL SIGNS: Reveal temperature of 97.9, blood pressure 133/81, heart rate 73. HEENT: Reveal sclerae to be white. Conjunctivae pink. NECK: Supple. CHEST: Lungs are clear. HEART: Reveals regular rate and rhythm. ABDOMEN: Soft, nontender. No mass. EXTREMITIES: Show no edema. LABORATORY DATA: Reveals hemoglobin of 8.8, white blood cell count 3.4. BUN 12, creatinine 0.9. IMPRESSION: 1. Lower gastrointestinal bleed, most likely secondary to diverticulosis. 2. Anemia. RECOMMENDATIONS: 1. The patient has been instructed to take iron 65 mg twice a day with food when she gets home. 2. The patient has been instructed to follow up with me in the office in several weeks. 3. The patient has been asked to return to the hospital if she has recurrent GI bleeding. 4. The patient has been asked to stop her baby aspirin. Dawit Lai MD
--- NOTE | 2017-11-02 18:57 | CP.PCM.DIS ---
Provider - Provider Date of Admission: 11/01/17 16:47 Attending physician: Brandon Guillory MD [facility] Course - Lab Results Lab Results: Most Recent Lab Values WBC 3.4 10^3/ul (4.5-11.0) L 11/02/17 06:20 RBC 2.92 10^6/uL (3.5-6.1) L 11/02/17 06:20 Hgb 8.8 g/dL (12.0-16.0) L 11/02/17 06:20 Hct 27.7 % (36.0-48.0) L 11/02/17 06:20 MCV 94.9 fl (80.0-105.0) 11/02/17 06:20 MCH 30.1 pg (25.0-35.0) 11/02/17 06:20 MCHC 31.8 g/dl (31.0-37.0) 11/02/17 06:20 RDW 14.7 % (11.5-14.5) H 11/02/17 06:20 Plt Count 139 10^3/uL (120.0-450.0) 11/02/17 06:20 MPV 9.8 fl (7.0-11.0) 11/02/17 06:20 Gran % 35.5 % (50.0-68.0) L 11/02/17 06:20 Lymph % (Auto) 53.1 % (22.0-35.0) H 11/02/17 06:20 [place] % (Auto) 6.9 % (1.0-6.0) H 11/02/17 06:20 Eos % (Auto) 3.6 % (1.5-5.0) 11/02/17 06:20 Baso % (Auto) 0.9 % (0.0-3.0) 11/02/17 06:20 Gran # 1.19 (1.4-6.5) L 11/02/17 06:20 Lymph # (Auto) 1.8 (1.2-3.4) 11/02/17 06:20 [place] # (Auto) 0.2 (0.1-0.6) 11/02/17 06:20 Eos # (Auto) 0.1 (0.0-0.7) 11/02/17 06:20 Baso # (Auto) 0.03 K/mm3 (0.0-2.0) 11/02/17 06:20 PT 11.4 SECONDS (9.4-12.5) 11/02/17 06:20 INR 0.99 (0.93-1.08) 11/02/17 06:20 APTT 26.7 Seconds (25.1-36.5) 11/02/17 06:20 Sodium 144 mmol/L (132-148) 11/02/17 06:20 Potassium 4.2 mmol/L (3.6-5.0) 11/02/17 06:20 Chloride 112 mmol/L (98-107) H 11/02/17 06:20 Carbon Dioxide 29 mmol/L (21-33) 11/02/17 06:20 Anion Gap 8 (10-20) L 11/02/17 06:20 BUN 12 mg/dL (7-21) 11/02/17 06:20 Creatinine 0.9 mg/dl (0.7-1.2) 11/02/17 06:20 Est GFR ( Amer) > 60 11/02/17 06:20 Est GFR (Non-Af Amer) 60 11/02/17 06:20 Random Glucose 98 mg/dL (70-110) 11/02/17 06:20 Calcium 9.7 mg/dL (8.4-10.5) 11/02/17 06:20 Phosphorus 2.7 mg/dL (2.5-4.5) 11/02/17 06:20 Magnesium 1.9 mg/dL (1.7-2.2) 11/02/17 06:20 Iron 44 ug/dL (45-180) L 11/01/17 06:20 TIBC 279 ug/dL (265-497) 11/01/17 06:20 % Saturation 16 % (20-55) L 11/01/17 06:20 Ferritin 36.4 ng/mL 11/01/17 06:20 Total Bilirubin < 0.1 mg/dL (0.2-1.3) L 11/02/17 06:20 AST 23 U/L (14-36) 11/02/17 06:20 ALT 26 U/L (7-56) 03/27/18 06:20 Alkaline Phosphatase 41 U/L (38-126) 11/02/17 06:20 Total Protein 4.9 g/dL (5.8-8.3) L 11/02/17 06:20 Albumin 2.7 g/dL (3.0-4.8) L 11/02/17 06:20 Globulin 2.2 gm/dL 11/02/17 06:20 Albumin/Globulin Ratio 1.2 (1.1-1.8) 11/02/17 06:20 Carcinoembryonic Ag 5.7 ng/mL (0.0-3.0) H 11/01/17 06:20 Blood Type O NEGATIVE 11/01/17 06:20 Antibody Screen Negative 11/01/17 06:20 Crossmatch See Detail 11/01/17 06:20 BBK History Checked Patient has bt 11/01/17 06:20 Discharge Exam - Head Exam Head Exam: ATRAUMATIC, NORMAL INSPECTION, NORMOCEPHALIC Discharge Plan - Follow Up Plan Condition: GUARDED Disposition: HOME/ ROUTINE Instructions: Polyethylene Glycol 3350, Preventing Falls in the Older Adult, Diverticulitis (DC), Colonoscopy (DC), Gastrointestinal Bleeding (DC) Additional Instructions: 1) Patient to follow up with PMD, Dr. Dawit Hernandez, within one week of discharge. 2) Patient to take any medications as directed. 3) Patient to discontinue aspirin, unless otherwise indicated. 4) Patient to return to the ED for any worsening symptoms. 5) Patient to not take aspirin, NSAID for two weeks. 6) Patient to return to Dr. Lai's office in four weeks. 7) Patient to take Metamucil as recommended by Dr. Lai, GI. Referrals: Dawit Hernandez MD [Family Provider] - Dawit Lai MD [Staff Provider] -
== END 2017-11-02 15:23 | disposition home or self-care (01) | DRG 378 ==
LOC: ED 00:01 → ERH 01:57 → 5RNO 03:47 → OBSVTOIN 11-01 16:47
PROVIDERS: ADMIT Internal Medicine; ATTEND Internal Medicine
PROC: 0DJD8ZZ Inspection of Lower Intestinal Tract, Via Natural or Artificial Opening Endoscopic (ICD-10-PCS; principal; 2017-11-01 10:30)
DX: K57.31 Diverticulosis of large intestine without perforation or abscess with bleeding (principal); K56.609 Unspecified intestinal obstruction, unspecified as to partial versus complete obstruction; C79.51 Secondary malignant neoplasm of bone; C79.31 Secondary malignant neoplasm of brain; G40.909 Epilepsy, unspecified, not intractable, without status epilepticus; D64.9 Anemia, unspecified; J44.9 Chronic obstructive pulmonary disease, unspecified; K21.9 Gastro-esophageal reflux disease without esophagitis; I25.10 Atherosclerotic heart disease of native coronary artery without angina pectoris; M81.0 Age-related osteoporosis without current pathological fracture; E78.00 Pure hypercholesterolemia, unspecified; I10 Essential (primary) hypertension; E78.5 Hyperlipidemia, unspecified; Z85.528 Personal history of other malignant neoplasm of kidney; Z85.828 Personal history of other malignant neoplasm of skin; Z86.73 Personal history of transient ischemic attack (TIA), and cerebral infarction without residual deficits; Z87.891 Personal history of nicotine dependence; Z95.5 Presence of coronary angioplasty implant and graft

== ENCOUNTER 2018-03-21 16:04 | Inpatient (IN) | payer MEDICARE ==
--- NOTE | 2018-03-21 16:27 | ED PDOC ---
Arrival/HPI - General Time Seen by Provider: 03/21/18 16:17 - History of Present Illness Narrative History of Present Illness (Text): 03/21/18 16:27 A 82 year old female, whose past medical history includes renal cancer, presents to the emergency department accompanied by her son complaining of chest pain. Patient's son reports patient stared experiencing left sided facial drooping and loss of voice while visiting her primary care doctor and neurologist. Patients reports she is experiencing chest pain. Patient denies any fever, chills, shortness of breath, nausea, vomiting, back pain, neck pain, headache, dizziness, or any other complaints. PMD: Dr. Hernandez Neurologist: Dr. Montenegro Time/Duration: 4-6 hours Symptom Onset: Gradual Symptom Course: Unchanged Activities at Onset: Light Past Medical History - Provider Review Nursing Documentation Reviewed: Yes - Infectious Disease Hx of Infectious Diseases: None - Tetanus Immunization Tetanus Immunization: Unknown - Cardiac Hx Hypertension: Yes - Pulmonary Hx Chronic Obstructive Pulmonary Disease (COPD): Yes - Neurological Hx Seizures: Yes (LAST SEIZURE APR 2015) Hx Transient Ischemic Attacks (TIA): Yes - HEENT Hx HEENT Disorder: Yes Hx Cataracts: Yes Other/Comment: HAS H/O RETINAL DETACHEMENT LEFT EYE - Renal Hx Renal Disorder: Yes Hx Renal Cancer: Yes - Endocrine/Metabolic Hx Endocrine Disorders: No - Hematological/Oncological Hx Blood Transfusions: No Hx Blood Transfusion Reaction: No - Integumentary Hx Dermatological Disorder: Yes 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) - Musculoskeletal/Rheumatological Hx Musculoskeletal Disorders: Yes Hx Falls: Yes (Last fall December 2016) Hx Unsteady Gait: Yes - Gastrointestinal Hx Gastrointestinal Disorders: Yes (Small bowel obstruction) Hx Hemorrhoids: Yes Other/Comment: Small bowel obstruction - Genitourinary/Gynecological Hx Genitourinary Disorders: No Hx Reproductive Disorders: No - Psychiatric Hx Depression: No Hx Substance Use: No - Surgical History Hx Cardiac Catheterization: Yes - Anesthesia Hx Anesthesia Reactions: No Hx Malignant Hyperthermia: No - Suicidal Assessment Feels Threatened In Home Enviroment: No Family/Social History - Physician Review Nursing Documentation Reviewed: Yes Family/Social History: Unknown Family HX Smoking Status: Former Smoker Hx Alcohol Use: No Hx Substance Use: No Hx Substance Use Treatment: No Allergies/Home Meds Allergies/Adverse Reactions: Allergies Penicillins Allergy (Verified 03/21/18 16:45) RASH tetanus and diphtheria toxoids [tetanus & diphtheria toxoids] Allergy (Verified 03/21/18 16:45) RASH/DIZZY Home Medications: Home Meds Medication Instructions Recorded Confirmed Atorvastatin [Lipitor] 20 mg PO HS 10/03/15 03/21/18 Lamotrigine [Lamictal] 150 mg PO BID 10/03/15 03/21/18 Losartan [Cozaar] 100 mg PO DAILY 10/03/15 03/21/18 Omeprazole 40 mg PO DAILY 10/03/15 03/21/18 Multivitamin with Iron [Daily [place] 1 tab PO DAILY 10/31/17 03/21/18 with Iron] Furosemide [Lasix] 40 mg PO DAILY 03/11/18 03/21/18 Psyllium Husk (with Sugar) 3.4 gm PO DAILY 03/21/18 03/21/18 [Metamucil Smooth Texture] Review of Systems - Physician Review All systems were reviewed & negative as marked: Yes - Review of Systems Constitutional: absent: Fevers, Night Sweats ENT: Other Respiratory: absent: SOB Cardiovascular: Chest Pain Gastrointestinal: absent: Nausea, Vomiting Musculoskeletal: absent: Back Pain, Neck Pain Neurological: absent: Headache, Dizziness Physical Exam Vital Signs Reviewed: Yes Vital Signs Temp Pulse Resp BP Pulse Ox 03/21/18 16:43 97.7 F 62 18 187/92 H 96 Temperature: Afebrile Blood Pressure: Hypertensive Pulse: Regular Respiratory Rate: Normal Appearance: Positive for: Well-Appearing, Non-Toxic, Comfortable Pain Distress: None Mental Status: Positive for: Alert and Oriented X 3 - Systems Exam Head: Present: Atraumatic, Normocephalic Pupils: Present: PERRL Extroacular Muscles: Present: EOMI Conjunctiva: Present: Normal Mouth: Present: Moist Mucous Membranes, Other (slight droop on left side of mouth ) Neck: Present: Normal Range of Motion Respiratory/Chest: Present: Clear to Auscultation, Good Air Exchange. No: Respiratory Distress, Accessory Muscle Use Cardiovascular: Present: Regular Rate and Rhythm, Normal S1, S2. No: Murmurs Abdomen: No: Tenderness, Distention, Peritoneal Signs Back: Present: Normal Inspection Upper Extremity: Present: Normal ROM, Other (diminished sensation to right hand ). No: Cyanosis, Edema, NORMAL PULSES, Tenderness, Swelling, Erythema, Neurovascularly Intact, Temperature Abnormalties, Capillary Refill < 2s, Deformity, Norm 2-Pt Discrimination Lower Extremity: Present: Normal Inspection. No: Edema Neurological: Present: GCS=15, CN II-XII Intact, Speech Normal Skin: Present: Warm, Dry, Normal Color. No: Rashes Psychiatric: Present: Alert, Oriented x 3, Normal Insight, Normal Concentration Medical Decision Making ED Course and Treatment: 03/21/18 16:31 Impression: A 82 year old femalepresents to the emergency department accompanied by her son complaining of chest pain. Plan: -- Type and Screen Stat -- Brain Head CT w/ contrast -- Head W/ contrast -- EKG -- Labs -- Stroke Team consult -- CBC -- COAG -- Chest X-ray -- Reassess and disposition Prior Visits: Notes and results from previous visits were reviewed. Progress Notes: 03/21/18 16:[address] Dasilva, neurologist, who is aware and agrees that patient is not a thrombolysis candidate. He would like to get a CT of Head with Contrast and eventual MRI of brain with contrast tomorrow. 03/21/18 17:03 admit accepted by the hospitalist, dr. koo, patient to be admitted for TIA.CVA , patient not a candidate for thrombolysis due to metastatic cancer hx. patient to be admitted for full workup to eval for CVA. - Lab Interpretations Lab Results: 03/21/18 16:20 03/21/18 16:20 Lab Results 03/21/18 16:20: Sodium 144, Potassium 3.9, Chloride 102, Carbon Dioxide 32, Anion Gap 14, BUN 17, Creatinine 0.9, Est GFR ( Amer) > 60, Est GFR (Non- Af Amer) 60, Random Glucose 94, Calcium 10.3, Total Bilirubin 0.5, AST 38 H D, ALT 27, Alkaline Phosphatase 65, Troponin I < 0.01 D, Total Protein 7.7, Albumin 4.7, Globulin 3.1, Albumin/Globulin Ratio 1.5, Triglycerides 106, Cholesterol 166, LDL Cholesterol Direct 63, HDL Cholesterol 76 H 03/21/18 16:20: PT 10.4, INR 0.91, APTT 27.9 03/21/18 16:20: WBC 5.0 D, RBC 5.01, Hgb 15.2 D, Hct 45.8, MCV 91.4 D, MCH 30.3, MCHC 33.2, RDW 14.2, Plt Count 161, MPV 11.5 H, Gran % 44.6 L, Lymph % ( Auto) 44.9 H, [place] % (Auto) 8.7 H, Eos % (Auto) 1.4 L, Baso % (Auto) 0.4, Gran # 2.22, Lymph # (Auto) 2.2, [place] # (Auto) 0.4, Eos # (Auto) 0.1, Baso # (Auto) 0.02 - RAD Interpretation Narrative RAD Interpretations (Text): 03/21/18 17:04 cxr my read: no focal infiltrate, no ptx, no pleural effusion Radiology Orders: 03/21/18 16:29 HEAD W/O (CODE STROKE) [CT] Stat 03/21/18 16:34 CHEST ONE VIEW [RAD] Stat 03/21/18 16:36 Brain [HEAD W/CONTRAST] [CT] Stat Under Presser: ED Physician - EKG Interpretation EKG Interpretation (Text): 03/21/18 16:56 1615: sinus rhythm at 67 bpm, 1st degree av block, no ectopy, lbbb; lbb is old when compared to ekg on 10.31.2017 Interpreted by ED Physician: Yes - Medication Orders Current Medication Orders: Sodium Chloride (Sodium Chloride 0.9%) 1,000 mls @ 100 mls/hr IV .Q10H [facility] NIHSS Stroke Scale 3 - Date/Time Evaluation Performed Date Performed: 03/21/18 Time Performed: 17:09 When Was NIHSS Performed: Baseline - How Severe is the Stroke Level of Consciousness: 0=Alert LOC to Questions: 0=Both comments correct LOC to commands: 0=Obeys both correctly Best Gaze: 0=Normal Visual: 0=No visual loss Facial: 1=Minor asymmetry Motor Arm - Left: 0=No drift Motor Arm - Right: 0=No drift Motor Leg - Left: 0=No drift Motor Leg - Right: 0=No drift Limb Ataxia: 0=Absent Sensory: 1=Mild to moderate loss Best Language: 0=No aphasia Dysarthia: 0=Normal articulation Extinction & Inattention (Neglect): 0=Normal, no object Score: 2 - Scribe Statement The provider has reviewed the documentation as recorded by the Scribe Brittany Webb All medical record entries made by the Scribe were at my direction and personally dictated by me. I have reviewed the chart and agree that the record accurately reflects my personal performance of the history, physical exam, medical decision making, and the department course for this patient. I have also personally directed, reviewed, and agree with the discharge instructions and disposition. Disposition/Present on Arrival - Present on Arrival Any Indicators Present on Arrival: No History of DVT/PE: No History of Uncontrolled Diabetes: No Urinary Catheter: No History Surgical Site Infection Following: None - Disposition Have Diagnosis and Disposition been Completed?: Yes Diagnosis: CVA (cerebral vascular accident) Disposition: HOSPITALIZED Disposition Time: 17:06 Patient Plan: Admission Patient Problems: Current Active Problems Problem Status Onset CVA (cerebral vascular accident) Acute Condition: FAIR
[2018-03-21 16:43] LABS: BASO # 0.02 K/mm3 (0.0-2.0); BASO % 0.4 % (0.0-3.0); EOS # 0.1 (0.0-0.7); EOS % 1.4 % (1.5-5.0); GRAN # 2.22 (1.4-6.5); GRAN % 44.6 % (50.0-68.0); HEMOGLOBIN 15.2 g/dL (12.0-16.0); LYMPH # 2.2 (1.2-3.4); LYMPH % 44.9 % (22.0-35.0); MEAN CELL VOLUME 91.4 fl (80.0-105.0); MEAN CORPUSCULAR HEMOGLOBIN 30.3 pg (25.0-35.0); MEAN CORPUSCULAR HGB CONC 33.2 g/dl (31.0-37.0); MEAN PLATELET VOLUME 11.5 fl (7.0-11.0); MONO # 0.4 (0.1-0.6); MONO % 8.7 % (1.0-6.0); RBC 5.01 10^6/uL (3.5-6.1); RED CELL DISTRIBUTION WIDTH 14.2 % (11.5-14.5)
[2018-03-21 16:53] LABS: INR 0.91; PARTIAL THROMBOPLASTIN TIME 27.9 Seconds (25.1-36.5); PROTHROMBIN TIME 10.4 SECONDS (9.4-12.5)
[2018-03-21 16:54] LABS: ALB/GLOB RATIO 1.5 (1.1-1.8); ALBUMIN 4.7 g/dL (3.0-4.8); CALCIUM 10.3 mg/dL (8.4-10.5); GFR AFRICAN-AMERICAN > 60; GFR NON-AFRICAN AMERICAN 60; HDL CHOLESTEROL 76 mg/dL (29-60)
[2018-03-21] MEDS: Sodium Chloride 0.9% 1,000 ML IV SCH (17:00)
[2018-03-21 17:03] LABS: ALT/SGPT 27 U/L (7-56); AST/SGOT 38 U/L (14-36); BLOOD UREA NITROGEN 17 mg/dL (7-21)
[2018-03-21 17:06] LABS: LDL CHOLESTEROL 63 mg/dL (0-129)
[2018-03-21 17:09] LABS: TROPONIN I < 0.01 ng/mL
--- NOTE | 2018-03-21 17:46 | CT ---
Date of service: 03/21/2018 PROCEDURE: CT HEAD WITHOUT CONTRAST. HISTORY: r/o stroke COMPARISON: 04/02/2017 CT head. 04/06/2017 MRI brain with without contrast TECHNIQUE: Axial computed tomography images were obtained through the head/brain without intravenous contrast. Coronal and sagittal reconstructed images. Radiation dose: Total exam DLP = 700.95 mGy-cm. This CT exam was performed using one or more of the following dose reduction techniques: Automated exposure control, adjustment of the mA and/or kV according to patient size, and/or use of iterative reconstruction technique. FINDINGS: HEMORRHAGE: No intracranial hemorrhage. BRAIN: No mass effect or edema. Cortical and cerebellar atrophy, periventricular small vessel disease. VENTRICLES: Unremarkable. No hydrocephalus. CALVARIUM: Affecting the calvarium. Portions of the left occipital parietal bone and been removed. PARANASAL SINUSES: Unremarkable as visualized. No significant inflammatory changes. MASTOID AIR CELLS: Unremarkable as visualized. No inflammatory changes. OTHER FINDINGS: None. IMPRESSION: No acute intracranial abnormalities. No significant findings to account for the clinical presentation. Code stroke protocol: Study completed 16:38 Radiologist notified 16:31 Results conveyed verbally at 16:46 Interpretation finalized and available for review 16:47
--- NOTE | 2018-03-21 17:46 | RAD ---
Date of service: 03/21/2018 PROCEDURE: CHEST RADIOGRAPH, 1 VIEW HISTORY: Code Stroke COMPARISON: 02/21/2018 FINDINGS: LUNGS: Pleural-based mass again identified on the left. The finding is marked on the study for review. PLEURA: No pneumothorax or pleural fluid seen. CARDIOVASCULAR: No radiographic findings to suggest acute or significant cardiovascular disease. OSSEOUS STRUCTURES: No significant abnormalities. VISUALIZED UPPER ABDOMEN: Normal. OTHER FINDINGS: None. IMPRESSION: No active pulmonary disease. Pleural-based mass better visualized on prior rib radiographs left pleural space No significant interval change compared to the prior examination(s).
[2018-03-21] MEDS ORDERED: Iodixanol 320 MG/ML 100 ML BOTTLE IV ONE (17:58)
--- NOTE | 2018-03-21 19:09 | CARD ---
APPROVED REPORT Date of service: 03/21/2018 EKG Measurement Heart [id number] <Conclusion> Sinus rhythm with 1st degree AV block Possible Left atrial enlargement Left axis deviation Left bundle branch block Abnormal ECG
[2018-03-21 20:23] VITALS: BMI 22.8
--- NOTE | 2018-03-21 21:39 | CP.PCM.HP ---
<RalphSrikanth - Last Filed: 03/21/18 21:23> History of Present Illness - History of Present Illness History of Present Illness: Srikanth Rosas PGY2 H&P Note for Dr. Charles cc: left sided weakness and facial asymmetry Ms. Nguyen is an 82 year old female with a past medical history of L renal cancer (resected w/o chemo/radiation Rx) with brain and nasal skin metastasis, LBBB, coronary artery disease, diverticulitis, COPD, hypertension, hyperlipidemia, TIA, Seizures who presented to ED with complaints of left sided weakness, pain and slurring of her words and facial droop after seeing several physicians this morning. Per son, the patient went to see Dr. Montenegro (neurology ) and Dr. Hernandez (PMD) this AM, but started experiencing left arm numbness/ tingling, but patient states it has been happening on and off the past week. she also complains of a headache that has now resolved and dizziness. she states that her voice is lost and she has been burping more. she complains of weakness in the left upper and lower extremities. Per son and POA who is at bedside, the patient is seeing Dr. Linares for possible immunotherapy initiation for 3rd L rib mets. Patient denies dizziness, shortness of breath, abdominal pain, dysuria, increased frequency/urgency, chest pain, fevers, chills , vision changes, nausea, vomiting. 12-pt ROS was reviewed and is otherwise unremarkable. PMD: Dr. Hernandez PMH: as above PSH: Craniotomy, Coronary stent, hernia repair, removal of renal malignancy Meds: reviewed Allergies: Penicillins, tetanus and diphtheria toxins FHx: son- due to Lung and Brain Ca at age 55; h/o tobacco abuse SHx: Previous smoker (quit 23 years ago), social alcohol use, denies illicit drug use Present on Admission - Present on Admission Any Indicators Present on Admission: No Review of Systems - Review of Systems All systems: reviewed and no additional remarkable complaints except (as per HPI ) Past Patient History - Infectious Disease Hx of Infectious Diseases: None - Tetanus Immunizations Tetanus Immunization: Unknown - Past Medical History & Family History Past Medical History?: Yes - Past Social History Smoking Status: Former Smoker Alcohol: None Drugs: Denies Home Situation {Lives}: Alone - CARDIAC Hx Hypertension: Yes - PULMONARY Hx Chronic Obstructive Pulmonary Disease (COPD): Yes - NEUROLOGICAL Hx Seizures: Yes (LAST SEIZURE APR 2015) Hx Transient Ischemic Attacks (TIA): Yes - HEENT Hx HEENT Problems: Yes Hx Cataracts: Yes Other/Comment: HAS H/O RETINAL DETACHEMENT LEFT EYE - RENAL Hx Chronic Kidney Disease: Yes Hx Renal (Kidney) Cancer: Yes - ENDOCRINE/METABOLIC Hx Endocrine Disorders: No - HEMATOLOGICAL/ONCOLOGICAL Hx Cancer: Yes - INTEGUMENTARY Hx Dermatological Problems: Yes 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) - MUSCULOSKELETAL/RHEUMATOLOGICAL Hx Musculoskeletal Disorders: Yes Hx Falls: No Hx Unsteady Gait: Yes - GASTROINTESTINAL Hx Gastrointestinal Disorders: Yes (Small bowel obstruction) Other/Comment: Small bowel obstruction - GENITOURINARY/GYNECOLOGICAL Hx Genitourinary Disorders: No - PSYCHIATRIC Hx Depression: No Hx Substance Use: No - SURGICAL HISTORY Hx Surgeries: Yes Hx Cardiac Catheterization: Yes - ANESTHESIA Hx Anesthesia Reactions: No Hx Malignant Hyperthermia: No Meds Allergies/Adverse Reactions: Allergies Allergy/AdvReac Type Severity Reaction Status Date / Time Penicillins Allergy RASH Verified 03/21/18 16:45 tetanus and diphtheria Allergy RASH/DIZZY Verified 03/21/18 16:45 toxoids [tetanus & diphtheria toxoids] Physical Exam - Constitutional Appears: Well, Non-toxic, No Acute Distress - Head Exam Head Exam: ATRAUMATIC, NORMAL INSPECTION - Eye Exam Eye Exam: EOMI, Normal appearance, PERRL - ENT Exam ENT Exam: Mucous Membranes Moist - Neck Exam Neck exam: Positive for: Normal Inspection - Respiratory Exam Respiratory Exam: NORMAL BREATHING PATTERN. absent: Wheezes, Respiratory Distress - Cardiovascular Exam Cardiovascular Exam: RRR, +S1, +S2 - GI/Abdominal Exam GI & Abdominal Exam: Normal Bowel Sounds, Soft. absent: Distended, Tenderness - Extremities Exam Extremities exam: Positive for: full ROM, normal inspection. Negative for: pedal edema - Neurological Exam Neurological exam: Alert, CN II-XII Intact (grossly), Oriented x3 Additional comments: facial sensory decreased on right side facial droop noted left side - Psychiatric Exam Psychiatric exam: Normal Mood - Skin Skin Exam: Warm Results - Vital Signs Recent Vital Signs: Last Vital Signs Temp 97.6 F 03/21/18 20:03 Pulse 67 03/21/18 20:03 Resp 20 03/21/18 20:03 BP 150/75 03/21/18 20:03 Pulse Ox 97 03/21/18 19:20 - Labs Result Diagrams: 03/21/18 16:20 03/21/18 16:20 Labs: Laboratory Results - last 24 hr 03/21/18 17:25 POC Glucose (mg/dL) 84 Assessment & Plan - Assessment and Plan (Free Text) Assessment: 82 year old female with a past medical history of L renal cancer ( resected w/o chemo/radiation Rx) with brain and nasal skin metastasis, LBBB, coronary artery disease, diverticulitis, COPD, hypertension, hyperlipidemia, TIA , Seizures who presented to ED with complaints of left sided weakness, pain and slurring of her words and facial droop. Neurology was consulted and agree patient is not a tPA candidate. Head CT was done and showed no acute intracranial abnormalities. Plan: Acute stroke symptoms, improving - monitor patient on telemetry floor - neurology consulted, recs appreciated - brain MRI pending - CT Head w/ contrast ordered - carotid US ordered - NPO diet - aspiration precautions - seizure precautions - fall risk - nurse swallow screen - swallow eval pending - PT eval pending - con tstatin Chest pain - troponin q6 to r/o RI - cardiology consulted, recs appreciated - cont Lasix home dose Hx seizures - cont lamictal home dose PPX - lovenox 40mg daily - SCDs Case was reviewed and discussed with attending, Dr. Melvin Rosas PGY2 <Ella Charles R - Last Filed: 03/22/18 09:33> Results - Vital Signs Recent Vital Signs: Last Vital Signs Temp 97.7 F 03/22/18 06:00 Pulse 60 03/22/18 06:00 Resp 17 03/22/18 06:00 BP 138/82 03/22/18 06:00 Pulse Ox 94 L 03/22/18 06:00 - Labs Result Diagrams: 03/22/18 05:40 03/22/18 05:40 Labs: Laboratory Results - last 24 hr 03/21/18 03/21/18 03/22/18 17:25 22:18 00:55 WBC RBC Hgb Hct MCV MCH MCHC RDW Plt Count MPV Sodium Potassium Chloride Carbon Dioxide Anion Gap BUN Creatinine Est GFR ( Amer) Est GFR (Non-Af Amer) POC Glucose (mg/dL) 84 87 Random Glucose Calcium Phosphorus Magnesium Total Bilirubin AST ALT Alkaline Phosphatase Lactate Dehydrogenase 398 Total Creatine Kinase 68 Troponin I < 0.01 Total Protein Albumin Globulin Albumin/Globulin Ratio 03/22/18 03/22/18 05:40 05:40 WBC 4.1 L RBC 4.56 Hgb 13.7 Hct 41.8 MCV 91.7 MCH 30.0 MCHC 32.8 RDW 14.2 Plt Count 146 MPV 10.3 Sodium 144 Potassium 4.0 Chloride 109 H Carbon Dioxide 29 Anion Gap 10 BUN 12 Creatinine 0.8 Est GFR ( Amer) > 60 Est GFR (Non-Af Amer) > 60 POC Glucose (mg/dL) Random Glucose 88 Calcium 9.5 Phosphorus 2.6 Magnesium 2.1 Total Bilirubin 0.5 AST 25 ALT 24 Alkaline Phosphatase 51 Lactate Dehydrogenase 426 Total Creatine Kinase 62 Troponin I < 0.01 Total Protein 5.8 Albumin 3.4 Globulin 2.4 Albumin/Globulin Ratio 1.4 Attending/Attestation - Attestation I have personally seen and examined this patient.: Yes I have fully participated in the care of the patient.: Yes I have reviewed all pertinent clinical information: Yes Notes (Text): Patient seen and examined by me at 5:40PM with resident 03/21/18. Case including HPI, physical exam, and assessment and plan discussed with resident. Agree with above with following additions/corrections. 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 Patient's son and healthcare proxy bedside. History taken from both son and patient with patient's permission. Patient's son states the patient had an appointment with her neurologist in the morning. She then went to her primary care doctor's office. At her primary care doctor's office, patient complained of left-sided facial droop and some numbness. Per patient and son this has happened many times in the past. Per son patient had previously been diagnosed with TIAs however it was done discovered that patient was having seizures. Patient's primary care doctor sent patient back to patient's neurologist Dr. Montenegro. On the way back to the neurologist office, patient started to have left-sided chest pain radiating into her left arm with associated nausea. She also had associated headache and dizziness. Patient states that the pain in the chest is a "gas pain." Pain does not radiate into her jaw but does radiate into the left arm. She also complains of left arm and left leg weakness and pain. Per son, patient also started to lose her voice. Per son, she was unable to ambulate. When they reached the neurologist office and described symptoms to the nurse, patient was sent to the emergency room. Patient states that she is still having chest pain and left arm and left leg pain and weakness. Headache has resolved. Nausea has resolved. Still with some dizziness. No change in vision. Still with slight left-sided facial. No diarrhea or constipation. No fevers or chills. No dysuria. 12 point review systems reviewed by me. Please see HPI. All other systems are negative. Family history: Mother in her 90s of old age, father at the age of 46 of a heart attack Social history: Patient lives alone. This is a cane on occasion to ambulate. Drinks very little red wine every night. Patient is a former smoker quit approximately 23 years ago and smoked for 30-40 years. No illicit drug use Physical exam: General: Awake and alert sitting up in bed in no acute distress HEENT: Normocephalic atraumatic. Pupils equal reactive. No scleral icterus. Oropharynx is pink and moist, no pharyngeal erythema or exudate appreciated. Neck is supple. Hearing is grossly intact. Cardiovascular: Normal rhythm. Normal S1, S2. No murmurs, rubs, or gallops appreciated Pulmonary: Normal respiratory effort. No rhonchi, rales or wheezing appreciated. Gastrointestinal: Soft, nontender, nondistended, positive bowel sounds all 4 quadrants, no guarding. Musculoskeletal: Normal range of motion all extremities, no calf tenderness, mild lower extremity pitting edema bilaterally (chronic per son) Central nervous system: AAO x 3. Slight left facial droop. Decreased voice. 5 out of 5 muscle strength all extremities. 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 1. Left-sided facial droop. Left-sided weakness and pain. Code stroke was called in the emergency room. Neurology consulted, follow-up recommendations. Head CT per radiologist shows no acute intracranial abnormalities. Follow-up carotid Dopplers and 2-D echo. Follow-up serial troponin. Patient given aspirin rectally. Speech and swallow eval. PT eval and treat. Monitor on telemetry. Continue statin. Fall risk precautions. 2. Chest pain. Patient with history of coronary artery disease. Rule out ACS. Aspirin given rectally in the emergency room. Patient's bicycle rental clerk Dr. Saenz consulted, follow up recommendations. Follow up serial troponin. Follow-up lipid panel. Continue aspirin, Lipitor, and Cozaar when patient is able tolerate by mouth. Monitor on telemetry 3. Coronary artery disease status post stent placement. Patient's bicycle rental clerk Dr. Saenz consulted, follow up recommendations. Continue aspirin, Lipitor, and Cozaar when patient is able tolerate by mouth. Monitor on telemetry 4. History of seizure disorder. Continue home Lamictal. Seizure precautions. Neurology consulted, follow-up recommendations. 5. Metastatic renal cell carcinoma. Patient follows with hematology/oncology as an outpatient. Per son, patient likely to have immunotherapy. Patient to continue follow-up with oncologist. 6. Essential hypertension. Continue home Cozaar and Lasix when able to tolerate by mouth. We'll monitor blood pressure and add IV medications if needed. 7. Bilateral lower extremity edema. Will get Dopplers to rule out DVT. 2-D echo pending. Continue home Lasix when able to tolerate by mouth. 8. History of COPD. patient is not on any medications at home. No acute exacerbation. Monitor for now. Case was discussed in detail with the patient and patient's son at bedside regarding current diagnosis and treatment plan.
[2018-03-22 01:31] LABS: TROPONIN I < 0.01 ng/mL
[2018-03-22 06:35] LABS: HEMOGLOBIN 13.7 g/dL (12.0-16.0); MEAN CELL VOLUME 91.7 fl (80.0-105.0); MEAN CORPUSCULAR HGB CONC 32.8 g/dl (31.0-37.0); MEAN PLATELET VOLUME 10.3 fl (7.0-11.0); RBC 4.56 10^6/uL (3.5-6.1); RED CELL DISTRIBUTION WIDTH 14.2 % (11.5-14.5); WHITE BLOOD COUNT 4.1 10^3/ul (4.5-11.0)
[2018-03-22 06:59] LABS: TROPONIN I < 0.01 ng/mL
[2018-03-22 07:07] LABS: ALB/GLOB RATIO 1.4 (1.1-1.8); ALBUMIN 3.4 g/dL (3.0-4.8); ALT/SGPT 24 U/L (7-56); AST/SGOT 25 U/L (14-36); BLOOD UREA NITROGEN 12 mg/dL (7-21); CALCIUM 9.5 mg/dL (8.4-10.5); GFR AFRICAN-AMERICAN > 60; GFR NON-AFRICAN AMERICAN > 60
--- NOTE | 2018-03-22 08:23 | CT ---
Date of service: 03/21/2018 PROCEDURE: CT HEAD WITH CONTRAST HISTORY: TIA, hx met cancer to brain COMPARISON: 03/21/2018 TECHNIQUE: Axial computed tomography images were obtained through the head/brain with intravenous contrast. Contrast dose: Radiation dose: Total exam DLP = 655 mGy-cm. This CT exam was performed using one or more of the following dose reduction techniques: Automated exposure control, adjustment of the mA and/or kV according to patient size, and/or use of iterative reconstruction technique. FINDINGS: HEMORRHAGE: No intracranial hemorrhage. BRAIN: No mass, mass effect or edema. No abnormal intracranial enhancement. Chronic microvascular changes are seen in the periventricular and deep white matter. VENTRICLES: Unremarkable. No hydrocephalus. CALVARIUM: There is a craniotomy defect in the left parietal skull PARANASAL SINUSES: Unremarkable as visualized. No significant inflammatory changes. MASTOID AIR CELLS: Unremarkable as visualized. No mastoid effusion. OTHER FINDINGS: The report concurs with the preliminary [facility] report IMPRESSION: No enhancing lesions to suggest metastatic disease
--- NOTE | 2018-03-22 09:14 | CARD ---
APPROVED REPORT Date of service: 03/22/2018 EKG Measurement Heart [id number] 248P9 [id number] <Conclusion> Sinus rhythm with 1st degree AV block Left axis deviation Left bundle branch block Abnormal ECG
[2018-03-22] MEDS ORDERED: [UNRECOGNIZED DRUG - OTHER] PO SCH (10:00)
[2018-03-22] MEDS ORDERED: PSYLLIUM HUSK 3.4 GM PO SCH (10:00)
[2018-03-22] MEDS ORDERED: Non Formulary Medication (Omeprazole [Omeprazole] 40 MG) PO SCH (10:00)
[2018-03-22] MEDS ORDERED: Enoxaparin 40 mg Syringe SC SCH (10:00)
--- NOTE | 2018-03-22 10:53 | US ---
HISTORY: Leg pain and swelling. Evaluate for DVT PHYSICIAN(S): Nilson Perry MD. TECHNIQUE: Duplex sonography and color-flow Doppler with graded compression were used to evaluate the deep venous systems of both lower extremities. FINDINGS: The visualized deep venous systems of both lower extremities are sonographically normal and compressible. Normal wave forms and augmentation are seen. There is no sonographic evidence for deep venous thrombosis in the visualized segments of both lower extremities. IMPRESSION: No sonographic evidence for deep venous thrombosis in the visualized segments of both lower extremities.
--- NOTE | 2018-03-22 10:59 | US ---
PROCEDURE: Bilateral carotid artery duplex ultrasound HISTORY: Carotid stenosis CVA PHYSICIAN(S): iNlson Perry MD. TECHNIQUE: Duplex sonography and color-flow Doppler were used to evaluate the carotid bifurcations and limited segments of the vertebral arteries bilaterally. FINDINGS: There is mild diffuse smooth heterogeneous plaque noted at the carotid bifurcations bilaterally. The peak systolic velocity in the proximal right internal carotid artery is 89 cm/sec. This corresponds to a 20 to 39% proximal right ICA stenosis. Normal systolic velocities are noted in the proximal right external carotid artery. There is antegrade flow in the right vertebral artery. The peak systolic velocity in the proximal left internal carotid artery is 74 cm/sec. This corresponds to a 20 to 39% proximal left ICA stenosis. Normal systolic velocities are noted in the proximal left external carotid artery. There is antegrade flow in the left vertebral artery. IMPRESSION: 1. Bilateral 20-39% proximal ICA stenoses. 2. Antegrade flow in both vertebral arteries.
[2018-03-22] MEDS: Psyllium Packet PO SCH (11:29)
[2018-03-22] MEDS: MULTIVITAMIN WITH IRON PO SCH (11:30)
[2018-03-22] MEDS: Pantoprazole 40 mg EC Tab PO SCH (11:30)
--- NOTE | 2018-03-22 12:17 | CON ---
Copied To: Nilson Saenz MD Attending MD: Nilson Saenz MD DATE: 03/22/2018 CARDIOLOGY CONSULTATION HISTORY OF PRESENT ILLNESS: The patient is well-known to me. She presented with intermittent facial drooping and an episode of chest pain. She had a similar episode recently, which prompted a stress test, which was done earlier this month. Her stress test showed good LV function with no evidence for ischemia. The patient suffers from hypercholesterolemia as well as hypertension. She has had a stent placed in the past, which was remotely. The patient is currently in MRI, obtaining evaluation of her neurologic status. PHYSICAL EXAMINATION: VITAL SIGNS: Blood pressure is 138/82, heart rate is in the 60s. Her EKG shows nonspecific ST-T changes. LABORATORY DATA: Troponins are negative. IMPRESSION: If the patient has no further symptoms related to her chest discomfort and her troponins are negative, we can follow her as an outpatient. Nilson Saenz MD
--- NOTE | 2018-03-22 13:21 | CP.PCM.PN ---
<Sudhakar Wise - Last Filed: 03/22/18 16:05> Subjective - Date & Time of Evaluation Date of Evaluation: 03/22/18 Time of Evaluation: 13:19 - Subjective Subjective: Internal Medicine Progress Note for Dr. Ella Wise PGY1 82F seen and evaluated at bedside this morning. No acute events overnight. Patient complains of some epigastric pain and left arm pain otherwise is doing well. During the encounter she lost her voice and a facial droop was more apparent and it resolved within 5 minutes. She states this happens sporadically throughout the day. Patient is currently NPO. She has not ambulated since admission. She has not had a bowel movement in 2 days. Denies fever, chills, nausea, vomiting, shortness of breath, dizziness, chest pain, or urinary symptoms. Objective - Vital Signs/Intake and Output Vital Signs (last 24 hours): Temp Pulse Resp BP Pulse Ox 99.1 F 66 18 167/91 H 94 L 03/22/18 11:35 03/22/18 11:35 03/22/18 11:35 03/22/18 11:35 03/22/18 06:00 Intake and Output: 03/22/18 03/22/18 06:59 18:59 Intake Total 1000 Balance 1000 - Medications Medications: Current Medications Aspirin (Aspirin Chewable) 81 mg PO DAILY [facility] Last Admin: 03/22/18 11:29 Dose: Not Given Atorvastatin Calcium (Lipitor) 20 mg PO HS [facility] Last Admin: 03/21/18 21:49 Dose: Not Given Furosemide (Lasix) 40 mg PO DAILY [facility] Last Admin: 03/22/18 11:30 Dose: Not Given Sodium Chloride (Sodium Chloride 0.9%) 1,000 mls @ 100 mls/hr IV .Q10H [facility] Last Admin: 03/21/18 17:00 Dose: 100 mls/hr Lamotrigine (Lamictal) 150 mg PO BID [facility] PRN Reason: Protocol Last Admin: 03/22/18 11:30 Dose: Not Given Losartan Potassium (Cozaar) 100 mg PO DAILY [facility] Last Admin: 03/22/18 11:29 Dose: Not Given Non-Formulary Medication (Multivitamin With Iron [Daily Paola With Iron]) 1 tab PO DAILY [facility] Last Admin: 03/22/18 11:30 Dose: Not Given Pantoprazole Sodium (Protonix Ec Tab) 40 mg PO ACB [facility] Last Admin: 03/22/18 11:30 Dose: Not Given Psyllium Hydrophilic Mucilloid (Hydrocil Instant) 1 pkt PO DAILY [facility] Last Admin: 03/22/18 11:29 Dose: Not Given - Labs Labs: 03/22/18 05:40 03/22/18 05:40 PT 10.4 SECONDS (9.4-12.5) 03/21/18 16:20 INR 0.91 03/21/18 16:20 APTT 27.9 Seconds (25.1-36.5) 03/21/18 16:20 - Constitutional Appears: Well, Non-toxic, No Acute Distress - Head Exam Head Exam: ATRAUMATIC, NORMAL INSPECTION, NORMOCEPHALIC - Eye Exam Eye Exam: EOMI, PERRL - ENT Exam ENT Exam: Mucous Membranes Moist - Respiratory Exam Respiratory Exam: Clear to Ausculation Bilateral, NORMAL BREATHING PATTERN - Cardiovascular Exam Cardiovascular Exam: REGULAR RHYTHM, +S1, +S2. absent: Murmur - GI/Abdominal Exam GI & Abdominal Exam: Soft, Normal Bowel Sounds. 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 Plan: 1. Left sided facial droop, weakness - Code Stroke in the Emergency Department - Currently on telemetry - CT head: no acute findings - Carotid US: 20-39% stenosis of ICA bilaterally - Pending MRI brain read - Neurology consulted, recommendations appreciated - Pending Speech and Swallow evaluation - Pending PT evaluation - Seizure precautions - Fall precautions - NPO, NS @100 2. Chest Pain - Troponins negative x3 - Lipid panel wnl - TSH wnl - Cardiology, Dr Saenz consulted: If not symptomatic, patient should follow up as outpatient. - Continue with home medications, Lipitor, Cozaar, Aspirin, when tolerating by mouth 3. Intermittent Aphasia - Residual effects of CVA vs. Mass effect secondary to metastases vs. seizures vs. somatiform disorder - Neurology consulted, recommendations appreciated - Pending CT neck 4. History of Seizures - Continue with Lamictal - Neurology consulted, recommendations appreciated - Seizure precautions 5. 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 Linares outpatient. Recently discussed Immunotherapy if approved by Medicare - Heme/Onc, Dr. Linares consulted recommendations appreciated 6. Hypertension - Continue with home medications when able to tolerate by mouth - Will continue to monitor BP 7. Bilateral lower extremity edema, improving - Continue Lasix when tolerating by mouth - Duplex LE US: negative 8. History of COPD - No acute exacerbation - Will continue to monitor GI: Protonix DVT: SCDs Diet: NPO Patient seen and case discussed with Dr. Melvin Wise PGY1 <Ella Charles R - Last Filed: 03/23/18 07:30> Objective - Vital Signs/Intake and Output Vital Signs (last 24 hours): Temp Pulse Resp BP Pulse Ox 98.2 F 63 19 158/99 H 97 03/23/18 06:00 03/23/18 06:00 03/23/18 06:00 03/23/18 06:00 03/23/18 06:00 Intake and Output: 03/23/18 03/23/18 06:59 18:59 Intake Total 1560 Balance 1560 - Medications Medications: Current Medications Aspirin (Aspirin Chewable) 81 mg PO DAILY [facility] Last Admin: 03/22/18 11:29 Dose: Not Given Atorvastatin Calcium (Lipitor) 20 mg PO HS [facility] Last Admin: 03/22/18 21:39 Dose: 20 mg Furosemide (Lasix) 40 mg PO DAILY [facility] Last Admin: 03/22/18 11:30 Dose: Not Given Sodium Chloride (Sodium Chloride 0.9%) 1,000 mls @ 100 mls/hr IV .Q10H [facility] Last Admin: 03/22/18 18:11 Dose: 100 mls/hr Lamotrigine (Lamictal) 150 mg PO BID [facility] PRN Reason: Protocol Last Admin: 03/22/18 18:09 Dose: 150 mg Losartan Potassium (Cozaar) 100 mg PO DAILY [facility] Last Admin: 03/22/18 11:29 Dose: Not Given Non-Formulary Medication (Multivitamin With Iron [Daily Paola With Iron]) 1 tab PO DAILY [facility] Last Admin: 03/22/18 11:30 Dose: Not Given Pantoprazole Sodium (Protonix Ec Tab) 40 mg PO ACB [facility] Last Admin: 03/22/18 11:30 Dose: Not Given Psyllium Hydrophilic Mucilloid (Hydrocil Instant) 1 pkt PO DAILY [facility] Last Admin: 03/22/18 11:29 Dose: Not Given - Labs Labs: 03/22/18 05:40 03/22/18 05:40 PT 10.4 SECONDS (9.4-12.5) 03/21/18 16:20 INR 0.91 03/21/18 16:20 APTT 27.9 Seconds (25.1-36.5) 03/21/18 16:20 Attending/Attestation - Attestation I have personally seen and examined this patient.: Yes I have fully participated in the care of the patient.: Yes I have reviewed all pertinent clinical information, including history, physical exam and plan: Yes Notes (Text): Patient seen and examined by me at 10AM with resident 03/22/18. Case including HPI, physical exam, and assessment and plan discussed with resident. Agree with above with following additions/corrections. Patient states that she is feeling ok today. States she is still having intermittent loss of voice and left facial droop. She states that chest pain has improved. She denies and left arm pain or weakness. She states she is still having some left leg pain. No headaches or dizziness. No fevers or chills. No nausea, vomiting, or abdominal pain. No change in vision. No shortness of breath. No dysuria. Physical exam: General: Awake and alert sitting up in bed in no acute distress HEENT: Normocephalic atraumatic. Pupils equal reactive. No scleral icterus. Oropharynx is pink. Positive dry mucous membranes. No pharyngeal erythema or exudate appreciated. Neck is supple. Cardiovascular: Normal rhythm. Normal S1, S2. No murmurs, rubs, or gallops appreciated Pulmonary: Normal respiratory effort. No rhonchi, rales or wheezing appreciated. Gastrointestinal: Soft, nontender, nondistended, positive bowel sounds all 4 quadrants, no guarding. Musculoskeletal: Normal range of motion all extremities, no calf tenderness, mild lower extremity pitting edema bilaterally (chronic per son) Central nervous system: AAO x 3. Slight left facial droop. Decreased voice. 5/ 5 muscle strength all extremities. 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 1. Left-sided facial droop. Left-sided weakness and pain. Intermittent loss of voice. Neurology consulted, follow-up recommendations. Head CT 03/21/18 per radiologist shows no acute intracranial abnormalities. Repeat head CT today 03/22 per radiologist showed no enhancing lesions to show metastatic disease. Carotid Dopplers per radiologist showed bilateral 20-39%proximal ICA stenosis, antegrade flow in both vertebral arteries. 2-D echo pending. Speech and swallow evaluation pending. PT eval and treat. Continue ASA and Lipitor. Continue to monitor on telemetry. Continue fall risk precautions. Pending Brain MRI. Will order CT neck to rule out any pathology causing intermittent loss of voice. 2. Chest pain. Patient with history of coronary artery disease. ACS ruled out. Troponins within normal limits. Continue ASA, lipitor, and cozaar. Discussed with Cardiology Dr. Saenz, patient to follow up outpatient in office. Recent stress test within normal limits. Continue to monitor on telemetry. 3. Coronary artery disease status post stent placement. Stable. Continue aspirin , Lipitor, and Cozaar. Contineu to monitor on telemetry 4. History of seizure disorder. Continue home Lamictal. Seizure precautions. Neurology consulted, follow-up recommendations. 5. Metastatic renal cell carcinoma. Patient follows with hematology/oncology as an outpatient. Per son, patient likely to have immunotherapy. Patient's oncologist Dr. Patten consulted, follow up recommendations. 6. Essential hypertension. Continue home Cozaar and Lasix when able to tolerate by mouth. Add IV medications if needed. 7. Bilateral lower extremity edema. Lower extremity venous dopplers negative for DVT. 2-D echo pending. Continue home Lasix when able to tolerate by mouth. 8. History of COPD. Patient is not on any medications at home. No acute exacerbation. Monitor for now. Case was discussed in detail with the patient and patient's son at bedside regarding current diagnosis and treatment plan.
[2018-03-22] MEDS ORDERED: Iohexol 350 MG/100 ML VIAL ONE (13:25)
--- NOTE | 2018-03-22 15:16 | CP.PCM.CON ---
History of Present Illness - History of Present Illness History of Present Illness: Called last night about elinor humphrey for acute facial droop that resolved and was not deemed to be a TPA candidate Today, consult called for dr. carey. Will await recommendations from him. Our team signing off. Please reconsult prn. Thank you Dr. terry Past Patient History - Infectious Disease Hx of Infectious Diseases: None - Tetanus Immunizations Tetanus Immunization: Unknown - Past Medical History & Family History Past Medical History?: Yes - Past Social History Smoking Status: Former Smoker Alcohol: None Drugs: Denies Home Situation {Lives}: Alone - CARDIAC Hx Cardiac Disorders: Yes - PULMONARY Hx Chronic Obstructive Pulmonary Disease (COPD): Yes - NEUROLOGICAL Hx Seizures: Yes (LAST SEIZURE APR 2015) Hx Transient Ischemic Attacks (TIA): Yes - HEENT Hx HEENT Problems: Yes Hx Cataracts: Yes Other/Comment: HAS H/O RETINAL DETACHEMENT LEFT EYE - RENAL Hx Chronic Kidney Disease: Yes Hx Renal (Kidney) Cancer: Yes - ENDOCRINE/METABOLIC Hx Endocrine Disorders: No - HEMATOLOGICAL/ONCOLOGICAL Hx Cancer: Yes (renal, skin) - INTEGUMENTARY Hx Dermatological Problems: Yes 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) - MUSCULOSKELETAL/RHEUMATOLOGICAL Hx Musculoskeletal Disorders: Yes Hx Falls: No Hx Unsteady Gait: Yes - GASTROINTESTINAL Hx Gastrointestinal Disorders: Yes (Small bowel obstruction) Other/Comment: Small bowel obstruction - GENITOURINARY/GYNECOLOGICAL Hx Genitourinary Disorders: No - PSYCHIATRIC Hx Depression: No Hx Substance Use: No - SURGICAL HISTORY Hx Surgeries: Yes Hx Cardiac Catheterization: Yes - ANESTHESIA Hx Anesthesia Reactions: No Hx Malignant Hyperthermia: No Meds Allergies/Adverse Reactions: Allergies Allergy/AdvReac Type Severity Reaction Status Date / Time Penicillins Allergy RASH Verified 03/21/18 16:45 tetanus and diphtheria Allergy RASH/DIZZY Verified 03/21/18 16:45 toxoids [tetanus & diphtheria toxoids] - Medications Medications: Current Medications Aspirin (Aspirin Chewable) 81 mg PO DAILY [facility] Last Admin: 03/22/18 11:29 Dose: Not Given Atorvastatin Calcium (Lipitor) 20 mg PO HS [facility] Last Admin: 03/21/18 21:49 Dose: Not Given Furosemide (Lasix) 40 mg PO DAILY [facility] Last Admin: 03/22/18 11:30 Dose: Not Given Sodium Chloride (Sodium Chloride 0.9%) 1,000 mls @ 100 mls/hr IV .Q10H [facility] Last Admin: 03/21/18 17:00 Dose: 100 mls/hr Lamotrigine (Lamictal) 150 mg PO BID [facility] PRN Reason: Protocol Last Admin: 03/22/18 11:30 Dose: Not Given Losartan Potassium (Cozaar) 100 mg PO DAILY [facility] Last Admin: 03/22/18 11:29 Dose: Not Given Non-Formulary Medication (Multivitamin With Iron [Daily Paola With Iron]) 1 tab PO DAILY [facility] Last Admin: 03/22/18 11:30 Dose: Not Given Pantoprazole Sodium (Protonix Ec Tab) 40 mg PO ACB [facility] Last Admin: 03/22/18 11:30 Dose: Not Given Psyllium Hydrophilic Mucilloid (Hydrocil Instant) 1 pkt PO DAILY [facility] Last Admin: 03/22/18 11:29 Dose: Not Given Results - Vital Signs Recent Vital Signs: Last Vital Signs Temp 99.1 F 03/22/18 11:35 Pulse 66 03/22/18 11:35 Resp 18 03/22/18 11:35 BP 167/91 H 03/22/18 11:35 Pulse Ox 94 L 03/22/18 06:00 - Labs Result Diagrams: 03/22/18 05:40 03/22/18 05:40 Labs: Laboratory Results - last 24 hr 03/21/18 03/21/18 03/22/18 17:25 22:18 00:55 WBC RBC Hgb Hct MCV MCH MCHC RDW Plt Count MPV Sodium Potassium Chloride Carbon Dioxide Anion Gap BUN Creatinine Est GFR ( Amer) Est GFR (Non-Af Amer) POC Glucose (mg/dL) 84 87 Random Glucose Calcium Phosphorus Magnesium Total Bilirubin AST ALT Alkaline Phosphatase Lactate Dehydrogenase 398 Total Creatine Kinase 68 Troponin I < 0.01 Total Protein Albumin Globulin Albumin/Globulin Ratio 03/22/18 03/22/18 03/22/18 05:40 05:40 07:10 WBC 4.1 L RBC 4.56 Hgb 13.7 Hct 41.8 MCV 91.7 MCH 30.0 MCHC 32.8 RDW 14.2 Plt Count 146 MPV 10.3 Sodium 144 Potassium 4.0 Chloride 109 H Carbon Dioxide 29 Anion Gap 10 BUN 12 Creatinine 0.8 Est GFR ( Amer) > 60 Est GFR (Non-Af Amer) > 60 POC Glucose (mg/dL) 81 Random Glucose 88 Calcium 9.5 Phosphorus 2.6 Magnesium 2.1 Total Bilirubin 0.5 AST 25 ALT 24 Alkaline Phosphatase 51 Lactate Dehydrogenase 426 Total Creatine Kinase 62 Troponin I < 0.01 Total Protein 5.8 Albumin 3.4 Globulin 2.4 Albumin/Globulin Ratio 1.4 03/22/18 11:34 WBC RBC Hgb Hct MCV MCH MCHC RDW Plt Count MPV Sodium Potassium Chloride Carbon Dioxide Anion Gap BUN Creatinine Est GFR ( Amer) Est GFR (Non-Af Amer) POC Glucose (mg/dL) 94 Random Glucose Calcium Phosphorus Magnesium Total Bilirubin AST ALT Alkaline Phosphatase Lactate Dehydrogenase Total Creatine Kinase Troponin I Total Protein Albumin Globulin Albumin/Globulin Ratio
--- NOTE | 2018-03-22 15:19 | CP.PCM.CON ---
History of Present Illness - History of Present Illness History of Present Illness: Paris Beebe, PGY2, Heme-Onc Consult for Dr Linares: CC: left sided weakness 82 year old female with PMH Stage IV renal cell carcinoma (resected w/ o chemo/radiation Rx) with brain and nasal skin metastasis, LBBB, coronary artery disease, diverticulitis, COPD, hypertension, hyperlipidemia, TIA, Seizures, presents for left sided weakness, slurring of speech. Patient evaluated by Neurology for stroke. Son at bedside, providing most of HPI. Per son, patient went to see PMD Dr Hernandez yesterday morning and started experiencing left arm numbness/paresthesias. States that she has been having it on and off for past week. Denies cp, nausea, vomiting, fevers, chills, poor appetite, weight changes, fatigue. In [facility] [place] [facility], code stroke called, head CT neg for ischemia, metastasis. This morning, patient states that her symptoms have mildly improved. Oncology consulted for history of renal cell carcinoma. 12 point ROS reviewed and is otherwise unremarkable. PMD: Dr. Hernandez Neurology Dr Montenegro PMH: as above PSH: Craniotomy, Coronary stent, hernia repair, removal of renal malignancy Meds: reviewed Allergies: Penicillins, tetanus and diphtheria toxins FHx: son- due to Lung and Brain Ca at age 55; h/o tobacco abuse SHx: Previous smoker (quit 23 years ago), social alcohol use, denies illicit drug use Review of Systems - Review of Systems All systems: reviewed and no additional remarkable complaints except Review of Systems: as per HPI Past Patient History - Infectious Disease Hx of Infectious Diseases: None - Tetanus Immunizations Tetanus Immunization: Unknown - Past Medical History & Family History Past Medical History?: Yes - Past Social History Smoking Status: Former Smoker Alcohol: None Drugs: Denies Home Situation {Lives}: Alone - CARDIAC Hx Cardiac Disorders: Yes - PULMONARY Hx Chronic Obstructive Pulmonary Disease (COPD): Yes - NEUROLOGICAL Hx Seizures: Yes (LAST SEIZURE APR 2015) Hx Transient Ischemic Attacks (TIA): Yes - HEENT Hx HEENT Problems: Yes Hx Cataracts: Yes Other/Comment: HAS H/O RETINAL DETACHEMENT LEFT EYE - RENAL Hx Chronic Kidney Disease: Yes Hx Renal (Kidney) Cancer: Yes - ENDOCRINE/METABOLIC Hx Endocrine Disorders: No - HEMATOLOGICAL/ONCOLOGICAL Hx Cancer: Yes (renal, skin) - INTEGUMENTARY Hx Dermatological Problems: Yes 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) - MUSCULOSKELETAL/RHEUMATOLOGICAL Hx Musculoskeletal Disorders: Yes Hx Falls: No Hx Unsteady Gait: Yes - GASTROINTESTINAL Hx Gastrointestinal Disorders: Yes (Small bowel obstruction) Other/Comment: Small bowel obstruction - GENITOURINARY/GYNECOLOGICAL Hx Genitourinary Disorders: No - PSYCHIATRIC Hx Depression: No Hx Substance Use: No - SURGICAL HISTORY Hx Surgeries: Yes Hx Cardiac Catheterization: Yes - ANESTHESIA Hx Anesthesia Reactions: No Hx Malignant Hyperthermia: No Meds Allergies/Adverse Reactions: Allergies Allergy/AdvReac Type Severity Reaction Status Date / Time Penicillins Allergy RASH Verified 03/21/18 16:45 tetanus and diphtheria Allergy RASH/DIZZY Verified 03/21/18 16:45 toxoids [tetanus & diphtheria toxoids] - Medications Medications: Current Medications Aspirin (Aspirin Chewable) 81 mg PO DAILY [facility] Last Admin: 03/22/18 11:29 Dose: Not Given Atorvastatin Calcium (Lipitor) 20 mg PO HS [facility] Last Admin: 03/21/18 21:49 Dose: Not Given Furosemide (Lasix) 40 mg PO DAILY [facility] Last Admin: 03/22/18 11:30 Dose: Not Given Sodium Chloride (Sodium Chloride 0.9%) 1,000 mls @ 100 mls/hr IV .Q10H [facility] Last Admin: 03/21/18 17:00 Dose: 100 mls/hr Lamotrigine (Lamictal) 150 mg PO BID [facility] PRN Reason: Protocol Last Admin: 03/22/18 11:30 Dose: Not Given Losartan Potassium (Cozaar) 100 mg PO DAILY [facility] Last Admin: 03/22/18 11:29 Dose: Not Given Non-Formulary Medication (Multivitamin With Iron [Daily Paola With Iron]) 1 tab PO DAILY [facility] Last Admin: 03/22/18 11:30 Dose: Not Given Pantoprazole Sodium (Protonix Ec Tab) 40 mg PO ACB [facility] Last Admin: 03/22/18 11:30 Dose: Not Given Psyllium Hydrophilic Mucilloid (Hydrocil Instant) 1 pkt PO DAILY [facility] Last Admin: 03/22/18 11:29 Dose: Not Given Physical Exam - Constitutional Appears: Non-toxic, No Acute Distress - Head Exam Head Exam: ATRAUMATIC, NORMOCEPHALIC - Eye Exam Eye Exam: EOMI, PERRL. absent: Conjunctival injection, Nystagmus, Scleral icterus Pupil Exam: NORMAL ACCOMODATION, PERRL. absent: Irregular, Miosis, Mydriatic, Unequal - ENT Exam ENT Exam: Mucous Membranes Moist - Neck Exam Neck exam: Positive for: Full Rom - Respiratory Exam Respiratory Exam: Clear to Auscultation Bilateral, NORMAL BREATHING PATTERN. absent: Chest Wall Tenderness, Decreased Breath Sounds, Rales, Rhonchi, Wheezes , Respiratory Distress, Stridor - Cardiovascular Exam Cardiovascular Exam: RRR, +S1, +S2. absent: Systolic Murmur - GI/Abdominal Exam GI & Abdominal Exam: Normal Bowel Sounds, Soft. absent: Distended, Firm, Mass, Organomegaly, Pulsatile Mass, Rebound, Rigid - Extremities Exam Extremities exam: Positive for: normal inspection. Negative for: calf tenderness, pedal edema - Back Exam Back exam: NORMAL INSPECTION. absent: CVA tenderness (L), CVA tenderness (R) - Neurological Exam Neurological exam: Alert, CN II-XII Intact, Oriented x3 Additional comments: low tone of voice. left sided facial droop and mild left sided ptosis - Psychiatric Exam Psychiatric exam: Normal Affect, Normal Mood - Skin Skin Exam: Dry, Normal Color, Warm Results - Vital Signs Recent Vital Signs: Last Vital Signs Temp 99.1 F 03/22/18 11:35 Pulse 66 03/22/18 11:35 Resp 18 03/22/18 11:35 BP 167/91 H 03/22/18 11:35 Pulse Ox 94 L 03/22/18 06:00 - Labs Result Diagrams: 03/22/18 05:40 03/22/18 05:40 Labs: Laboratory Results - last 24 hr 03/21/18 03/21/18 03/22/18 17:25 22:18 00:55 WBC RBC Hgb Hct MCV MCH MCHC RDW Plt Count MPV Sodium Potassium Chloride Carbon Dioxide Anion Gap BUN Creatinine Est GFR ( Amer) Est GFR (Non-Af Amer) POC Glucose (mg/dL) 84 87 Random Glucose Calcium Phosphorus Magnesium Total Bilirubin AST ALT Alkaline Phosphatase Lactate Dehydrogenase 398 Total Creatine Kinase 68 Troponin I < 0.01 Total Protein Albumin Globulin Albumin/Globulin Ratio 03/22/18 03/22/18 03/22/18 05:40 05:40 07:10 WBC 4.1 L RBC 4.56 Hgb 13.7 Hct 41.8 MCV 91.7 MCH 30.0 MCHC 32.8 RDW 14.2 Plt Count 146 MPV 10.3 Sodium 144 Potassium 4.0 Chloride 109 H Carbon Dioxide 29 Anion Gap 10 BUN 12 Creatinine 0.8 Est GFR ( Amer) > 60 Est GFR (Non-Af Amer) > 60 POC Glucose (mg/dL) 81 Random Glucose 88 Calcium 9.5 Phosphorus 2.6 Magnesium 2.1 Total Bilirubin 0.5 AST 25 ALT 24 Alkaline Phosphatase 51 Lactate Dehydrogenase 426 Total Creatine Kinase 62 Troponin I < 0.01 Total Protein 5.8 Albumin 3.4 Globulin 2.4 Albumin/Globulin Ratio 1.4 03/22/18 11:34 WBC RBC Hgb Hct MCV MCH MCHC RDW Plt Count MPV Sodium Potassium Chloride Carbon Dioxide Anion Gap BUN Creatinine Est GFR ( Amer) Est GFR (Non-Af Amer) POC Glucose (mg/dL) 94 Random Glucose Calcium Phosphorus Magnesium Total Bilirubin AST ALT Alkaline Phosphatase Lactate Dehydrogenase Total Creatine Kinase Troponin I Total Protein Albumin Globulin Albumin/Globulin Ratio Assessment & Plan - Assessment and Plan (Free Text) Assessment: 82 year old female with PMH stage IV renal cell carcinoma (resected without chemo/radiation treatment) with brain and nasal skin metastasis s/p craniotomy, LBBB, coronary artery disease, diverticulitis, COPD, hypertension, hyperlipidemia, TIA, Seizures, presents for left sided weakness, slurring of speech, facial droop. Head CT negative for acute changes, metastasis. Patient was recently found to have metastatic renal cancer to left 3rd rib. Will likely go for immunotherapy outpatient, awaiting insurance approval: - c/w CVA, neurology workup - F.u brain MRI - look for mets, carotid US - stable from oncology standpoint - will monitor Further recs per Dr Linares.
--- NOTE | 2018-03-22 15:40 | PCM.RRT ---
<Harrison Girard - Last Filed: 03/22/18 15:41> ORCHARD WORKER Nurse Assessment - Situation Date: 03/22/18 Time ORCHARD WORKER was called: 15:17 ORCHARD WORKER Responder Arrival Time: 15:17 ORCHARD WORKER Location:: [address] [place] [address] Room Number: [id number] ORCHARD WORKER Reason for Call: Possible Stroke ORCHARD WORKER Called By: RN - IV IV Inserted during ORCHARD WORKER?: No - Respiratory Oxygen Delivery Method: Room Air Received Nebulizer Treatments:: No Was the Patient Ventilated with Bag/Mask 100% O2?: No Secretions Suctioned?: No Was the Patient Intubated?: No Was the Patient Placed on a Ventilator?: No - Medication Medications Administered During ORCHARD WORKER: none - Diagnostic Test Ordered EKG: No Chest X-Ray: No CT Scan: No Other Diagnostic Test Ordered: MRI brain CPR started during ORCHARD WORKER?: No - Vital Signs Vital Sign: Rapid Response Vital Sign Blood Pressure 160/88 Pulse Rate 76 Respiratory Rate 18 Temperature 97.8 F Oxygen Saturation 94 - Finger Stick Blood Glucose Finger Stick Blood Glucose: 168 - Time ORCHARD WORKER Ended Time ORCHARD WORKER Ended: 15:25 - Vital Signs at end of ORCHARD WORKER Vital Signs at end of ORCHARD WORKER: Rapid Response End Vital Sign Blood Pressure 168/96 Pulse Rate 72 Respiratory Rate 18 Temperature 98.1 F O2 Sat by Pulse Oximetry 95 - Recommendations Notifications: Attending Physician, Consultations, Family or Designated Caregiver I.Reason for ORCHARD WORKER - A) Acute Change in Patient: Subjective: Patient was originally admitted for new left sided facial droop and is being evaluated for possible TIA/CVA. Per nursing, patient was complaining of new onset right-sided facial numbness and weakness for the past 20 minutes. ORCHARD WORKER was called at 3:16 pm. On arrival, patient had been already evaluated by the code stroke neurologist, Dr. Dasilva, who recommended MRI and full-dose ASA. Patient states that numbness was on the right side of her face was new. Patient denied CP, SOB, n/v/d, abdominal pain, fever, chills, UE weakness, MUSE, or dizziness. - Respiratory Oxygen Delivery Method: Room Air - Constitutional Appears: Non-toxic - Head Head Exam: NORMAL INSPECTION - Eyes Eye Exam: Normal appearance - Respiratory Exam Respiratory Exam: Clear to Ausculation Bilateral. absent: Rales, Rhonchi, Wheezes - Cardiovascular Exam Cardiovascular Exam: RRR, +S1, +S2. absent: Gallop, Rubs, Murmur - GI/Abdominal Exam GI & Abdominal Exam: Soft. absent: Distended, Guarding, Tenderness, Rebound - Neurological Exam Neurological Exam: Alert, Awake, Oriented x3 Additional exam: left sided facial droop, forehead spared bilaterally, UE strength equal bilaterally 4/5 - Extremities Exam Extremities Exam: Normal Inspection Plan - Assessment of Findings&Treatment Plan 82 yo F admitted for left sided droop and CP. ORCHARD WORKER called for new right sided numbness. - MRI as planned and ASA per neurology recommendations - Attending notified <Ella Charles - Last Filed: 03/22/18 18:37> ORCHARD WORKER Nurse Assessment - Vital Signs Vital Sign: Rapid Response Vital Sign Blood Pressure 160/88 Pulse Rate 76 Respiratory Rate 18 Temperature 97.8 F Oxygen Saturation 94 - Vital Signs at end of ORCHARD WORKER Vital Signs at end of ORCHARD WORKER: Rapid Response End Vital Sign Blood Pressure 168/96 Pulse Rate 72 Respiratory Rate 18 Temperature 98.1 F O2 Sat by Pulse Oximetry 95 Attending/Attestation - Attestation I have personally seen and examined this patient.: Yes I have fully participated in the care of the patient.: Yes I have reviewed all pertinent clinical information, including history, physical exam and plan: Yes Notes (Text): Patient seen and examined by me. ORCHARD WORKER was called. Arrived at 3:19PM. Patient complained of new right sided facial numbness and weakness. Per Patient's son at bedside, he noticed patient's right eye was started to "droop" and patient once again had "left facial droop." Patient was seen by neurologist at bedside. MRI brain was ordered and patient was given full dose aspirin. Patient had no difficulty opening or closing eyes at time of exam. Patient denied any chest pain or shortness of breath. At time of exam patient stated she was having more of a headache. She denied any dizziness. No nausea, vomiting, or abdominal pain. No change in vision. No shortness of breath. Patient also complained of "gas-like and pressure across abdomen below breasts." General: Awake and alert sitting up in bed in no acute distress HEENT: Normocephalic atraumatic. Pupils equal reactive. Extraocular muscles intact. No scleral icterus. Positive dry mucous membranes. Cardiovascular: Normal rhythm. Normal S1, S2. No murmurs, rubs, or gallops appreciated Pulmonary: Normal respiratory effort. No rhonchi, rales or wheezing appreciated. Gastrointestinal: Soft, nontender, nondistended, positive bowel sounds all 4 quadrants, no guarding. Musculoskeletal: Normal range of motion all extremities, no calf tenderness, mild lower extremity pitting edema bilaterally (chronic per son) Central nervous system: AAO x 3. Slight left facial droop. ? Decreased sensation on right side of face. 5 out of 5 muscle strength all extremities. Dermatologic: Skin warm and dry A/P: 1. Right-sided facial numbness and weakness. 5 out of 5 muscle strength all extremities. Neurology following. Patient given aspirin. MRI brain ordered. Will follow-up results. 2. Chest pain. Troponin and EKG ordered. Cardiology Dr. Saenz notified. Case was discussed with patient's son at bedside with neurologist. All questions were answered.
[2018-03-22] MEDS ORDERED: Iodixanol 320 MG/ML 100 ML BOTTLE IV ONE (16:10)
--- NOTE | 2018-03-22 18:05 | CT ---
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 COMPARISON: March 22, 2018. CT head TECHNIQUE: CT of the neck with intravenous contrast. Coronal and sagittal reformats generated. Intravenous contrast dose: 100 cc Visipaque 320. Radiation dose: DLP 270 mGy-cm This CT exam was performed using one or more of the following dose reduction techniques: Automated exposure control, adjustment of the mA and/or kV according to patient size, and/or use of iterative reconstruction technique. FINDINGS: NASOPHARYNX: Unremarkable. SUPRAHYOID NECK: Unremarkable oropharynx, oral cavity, parapharyngeal space and retropharyngeal space. INFRAHYOID NECK: Unremarkable larynx, hypopharynx, and supraglottic space. Vocal cords intact. MASS: None. GLANDS: Parotid and submandibular glands unremarkable. Normal size thyroid gland, without nodule. LYMPH NODES: Normal. No lymphadenopathy. CERVICAL SPINE: No fracture or focal lesion. VASCULAR STRUCTURES: Unremarkable. OTHER FINDINGS: Bullous changes in both upper lobes as visualized. IMPRESSION: No evidence of metastatic disease.
[2018-03-22] MEDS: Sodium Chloride 0.9% 1,000 ML IV SCH (18:11)
--- NOTE | 2018-03-22 21:00 | CARD ---
APPROVED REPORT Date of service: 03/22/2018 EKG Measurement Heart [id number] <Conclusion> Sinus rhythm with 1st degree AV block Left axis deviation Left bundle branch block Abnormal ECG
[2018-03-23 07:12] LABS: MEAN CELL VOLUME 91.3 fl (80.0-105.0); MEAN CORPUSCULAR HEMOGLOBIN 29.8 pg (25.0-35.0); MEAN CORPUSCULAR HGB CONC 32.6 g/dl (31.0-37.0); MEAN PLATELET VOLUME 11.1 fl (7.0-11.0); RBC 4.7 10^6/uL (3.5-6.1); RED CELL DISTRIBUTION WIDTH 13.9 % (11.5-14.5); WHITE BLOOD COUNT 4.2 10^3/ul (4.5-11.0)
[2018-03-23 07:23] LABS: ALB/GLOB RATIO 1.4 (1.1-1.8); ALBUMIN 3.3 g/dL (3.0-4.8); ALT/SGPT 21 U/L (7-56); AST/SGOT 25 U/L (14-36); BLOOD UREA NITROGEN 10 mg/dL (7-21); GFR AFRICAN-AMERICAN > 60; GFR NON-AFRICAN AMERICAN > 60
[2018-03-23 07:33] LABS: TROPONIN I < 0.01 ng/mL
--- NOTE | 2018-03-23 08:47 | CP.PCM.CON ---
History of Present Illness - History of Present Illness History of Present Illness: Palliative consult requested by Dr Sveta Guillory Reason: Advance care planning 82 year old female with history metastatic renal cancer s/p resection/chemo and radiation, CAD COPD who was sent from Dr Montenegro's office with left sided weakness, l facial droop and slurred speech.She decried dizziness, shortness of breath, chest/abdominal pain, nausea, vomiting, fever, chills and visual changes. Initial CT's of head showed no acute abnormality or evidence of metastatic disease. MRI of brain pending. US of carotids showed bilateral 20-39 % proximal ICA stenosis, antegrade flow in both vertebral arteries. 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 Family History: son lung cancer> . Advance Care Panning: The patient has an Advanced Directive, a copy is in the chart. Review of Systems: As per HPI, 12 point review negative. Past Patient History - Infectious Disease Hx of Infectious Diseases: None - Tetanus Immunizations Tetanus Immunization: Unknown - Past Medical History & Family History Past Medical History?: Yes - Past Social History Smoking Status: Former Smoker Alcohol: None Drugs: Denies Home Situation {Lives}: Alone - CARDIAC Hx Cardiac Disorders: Yes - PULMONARY Hx Chronic Obstructive Pulmonary Disease (COPD): Yes - NEUROLOGICAL Hx Seizures: Yes (LAST SEIZURE APR 2015) Hx Transient Ischemic Attacks (TIA): Yes - HEENT Hx HEENT Problems: Yes Hx Cataracts: Yes Other/Comment: HAS H/O RETINAL DETACHEMENT LEFT EYE - RENAL Hx Chronic Kidney Disease: Yes Hx Renal (Kidney) Cancer: Yes - ENDOCRINE/METABOLIC Hx Endocrine Disorders: No - HEMATOLOGICAL/ONCOLOGICAL Hx Cancer: Yes (renal, skin) - INTEGUMENTARY Hx Dermatological Problems: Yes 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) - MUSCULOSKELETAL/RHEUMATOLOGICAL Hx Musculoskeletal Disorders: Yes Hx Falls: No Hx Unsteady Gait: Yes - GASTROINTESTINAL Hx Gastrointestinal Disorders: Yes (Small bowel obstruction) Other/Comment: Small bowel obstruction - GENITOURINARY/GYNECOLOGICAL Hx Genitourinary Disorders: No - PSYCHIATRIC Hx Depression: No Hx Substance Use: No - SURGICAL HISTORY Hx Surgeries: Yes Hx Cardiac Catheterization: Yes - ANESTHESIA Hx Anesthesia Reactions: No Hx Malignant Hyperthermia: No Meds Allergies/Adverse Reactions: Allergies Allergy/AdvReac Type Severity Reaction Status Date / Time Penicillins Allergy RASH Verified 03/21/18 16:45 tetanus and diphtheria Allergy RASH/DIZZY Verified 03/21/18 16:45 toxoids [tetanus & diphtheria toxoids] - Medications Medications: Current Medications Aspirin (Aspirin Chewable) 81 mg PO DAILY [facility] Last Admin: 03/22/18 11:29 Dose: Not Given Atorvastatin Calcium (Lipitor) 20 mg PO HS [facility] Last Admin: 03/22/18 21:39 Dose: 20 mg Furosemide (Lasix) 40 mg PO DAILY [facility] Last Admin: 03/22/18 11:30 Dose: Not Given Sodium Chloride (Sodium Chloride 0.9%) 1,000 mls @ 100 mls/hr IV .Q10H [facility] Last Admin: 03/22/18 18:11 Dose: 100 mls/hr Lamotrigine (Lamictal) 150 mg PO BID [facility] PRN Reason: Protocol Last Admin: 03/22/18 18:09 Dose: 150 mg Losartan Potassium (Cozaar) 100 mg PO DAILY [facility] Last Admin: 03/22/18 11:29 Dose: Not Given Non-Formulary Medication (Multivitamin With Iron [Daily Paola With Iron]) 1 tab PO DAILY [facility] Last Admin: 03/22/18 11:30 Dose: Not Given Pantoprazole Sodium (Protonix Ec Tab) 40 mg PO ACB [facility] Last Admin: 03/22/18 11:30 Dose: Not Given Psyllium Hydrophilic Mucilloid (Hydrocil Instant) 1 pkt PO DAILY [facility] Last Admin: 03/22/18 11:29 Dose: Not Given Physical Exam - Constitutional Appears: No Acute Distress, Chronically Ill - Head Exam Additional comments: left facial droop - ENT Exam ENT Exam: Mucous Membranes Moist, Normal Oropharynx - Neck Exam Neck exam: Positive for: Normal Inspection - Respiratory Exam Respiratory Exam: Clear to Auscultation Bilateral, NORMAL BREATHING PATTERN - Cardiovascular Exam Cardiovascular Exam: REGULAR RHYTHM, +S1, +S2 - GI/Abdominal Exam GI & Abdominal Exam: Normal Bowel Sounds, Soft Additional comments: no tenderness - Extremities Exam Additional comments: left sided weakness - Back Exam Back exam: NORMAL INSPECTION - Neurological Exam Neurological exam: Alert, Oriented x3 - Skin Skin Exam: Dry, Pallor - Additional Findings Additional findings: Palliative performance scale rating 50% Results - Vital Signs Recent Vital Signs: Last Vital Signs Temp 98.2 F 03/23/18 06:00 Pulse 63 03/23/18 06:00 Resp 19 03/23/18 06:00 BP 158/99 H 03/23/18 06:00 Pulse Ox 97 03/23/18 06:00 - Labs Result Diagrams: 03/23/18 06:30 03/23/18 06:30 Labs: Laboratory Results - last 24 hr 03/22/18 03/22/18 03/22/18 07:10 11:34 15:13 WBC RBC Hgb Hct MCV MCH MCHC RDW Plt Count MPV Sodium Potassium Chloride Carbon Dioxide Anion Gap BUN Creatinine Est GFR ( Amer) Est GFR (Non-Af Amer) POC Glucose (mg/dL) 81 94 168 H Random Glucose Calcium Phosphorus Magnesium Total Bilirubin AST ALT Alkaline Phosphatase Troponin I Total Protein Albumin Globulin Albumin/Globulin Ratio 03/22/18 03/22/18 03/22/18 16:06 17:30 21:27 WBC RBC Hgb Hct MCV MCH MCHC RDW Plt Count MPV Sodium Potassium Chloride Carbon Dioxide Anion Gap BUN Creatinine Est GFR ( Amer) Est GFR (Non-Af Amer) POC Glucose (mg/dL) 101 89 Random Glucose Calcium Phosphorus Magnesium Total Bilirubin AST ALT Alkaline Phosphatase Troponin I < 0.01 Total Protein Albumin Globulin Albumin/Globulin Ratio 03/23/18 03/23/18 03/23/18 06:30 06:30 07:32 WBC 4.2 L RBC 4.70 Hgb 14.0 Hct 42.9 MCV 91.3 MCH 29.8 MCHC 32.6 RDW 13.9 Plt Count 151 MPV 11.1 H Sodium 144 Potassium 4.0 Chloride 109 H Carbon Dioxide 28 Anion Gap 11 BUN 10 Creatinine 0.7 Est GFR ( Amer) > 60 Est GFR (Non-Af Amer) > 60 POC Glucose (mg/dL) 78 Random Glucose 84 Calcium 10.0 Phosphorus 2.8 Magnesium 2.0 Total Bilirubin 0.6 AST 25 ALT 21 Alkaline Phosphatase 56 Troponin I < 0.01 Total Protein 5.8 Albumin 3.3 Globulin 2.5 Albumin/Globulin Ratio 1.4 Assessment & Plan - Assessment and Plan (Free Text) Assessment: 82 year old female with extensive past medical history (see PMH) who was admitted with slurred speech, left fail droop and left sided weakness,HTN, seizure disorder The patient isl alert and oriented, her son Dawit Nguyen is at bedside. The patient and I discussed advance care planning in the presence of her son. She affirms that she has an advanced directive Dawit is her POA. She is aware that Advance Directive stipulates if her condition is terminal irreversible of or if she is in a vegetative state,s she does not want to prolong her life. I offered the option of completing a POLST directive. POLST explained in detail, questions answered. The patient does not wish to initiate a POLST at this time. She states that her son will handle all medical decision making when she is unable to do s. Time spent in goals of care and advance care planning, 30 minutes Plan: Left facial droop/left sided weakness: Code Stroke>Neurology following. CT of head showing no signs of metastasis or infarct. MRI of brain pending. Seizure disorder: Continue Lamictal, seizure precautions. Renal Cell Carcinoma: Oncology following. HTN: Continue Cozaar, monitor BP Goals of care and advance care planning
[2018-03-23] MEDS ORDERED: POLYETHYLENE GLYCOL 3350 17 GM/Dose PACKET PO PRN (09:17)
[2018-03-23] MEDS ORDERED: POLYETHYLENE GLYCOL 3350 17 GM/Dose PACKET PO STA (09:17)
[2018-03-23] MEDS: Pantoprazole 40 mg EC Tab PO SCH (09:35)
[2018-03-23] MEDS: MULTIVITAMIN WITH IRON PO SCH (09:55)
--- NOTE | 2018-03-23 09:59 | MRI ---
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 FINDINGS: HEMORRHAGE: None DWI: No evidence of an acute or early subacute infarction. BRAIN PARENCHYMA: No mass effect or edema. Severe chronic microvascular changes are seen in the periventricular white matter. Moderate atrophy VENTRICLES: Unremarkable. No hydrocephalus. CRANIUM: There is a 3.5 cm craniotomy defect in the left occipital bone at the site of previously seen lytic lesion. No other cranial lesions seen ORBITS: Grossly unremarkable. PARANASAL SINUSES/MASTOIDS: Clear VASCULAR SYSTEM: Skull base flow voids intact. OTHER FINDINGS: None. IMPRESSION: There is a 3.5 cm craniotomy defect in the left occipital bone at the site of previously seen lytic lesion. No other cranial lesions seen No acute intracranial findings
--- NOTE | 2018-03-23 10:11 | CP.PCM.CON ---
<Srikanth Rosas - Last Filed: 03/23/18 14:21> History of Present Illness - History of Present Illness History of Present Illness: Srikanth Ralph PGY2 Neurology Consult Note for Dr. Dasilva Ms. 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 Per son, the patient started experiencing left arm numbness/tingling, but patient states it has been happening on and off the past week. She also complained of a headache that has now resolved and dizziness, and also states that her voice gets lost. CODE STROKE was called, but patient was not a tPA candidate; NIHSS score was 2 upon presentation for mild facial asymmetry and sensor changes. Yesterday, DIRECTOR BROADCAST was called because patient was complaining of new onset right-sided facial numbness and weakness x20 minutes. Patient was evaluated by the code stroke neurologist, Dr. Dasilva, who recommended MRI and full-dose ASA. When seen today, the patient has no neurological deficits, but states that she has a "funny feeling" in her left cheek, and states that she feels the same symptoms coming on; she however has no focal deficits or slurring of her words. Patient denies dizziness, shortness of breath, abdominal pain, dysuria, increased frequency/urgency, chest pain, fevers, chills, vision changes, nausea , vomiting. 12-pt ROS was reviewed and is otherwise unremarkable. PMD: Dr. Hernandez PMH: as above PSH: Craniotomy, Coronary stent, hernia repair, removal of renal malignancy Meds: reviewed Allergies: Penicillins, tetanus and diphtheria toxins FHx: son- due to Lung and Brain Ca at age 55; h/o tobacco abuse SHx: Previous smoker (quit 23 years ago), social alcohol use, denies illicit drug use Review of Systems - Review of Systems All systems: reviewed and no additional remarkable complaints except (as per HPI ) Past Patient History - Infectious Disease Hx of Infectious Diseases: None - Tetanus Immunizations Tetanus Immunization: Unknown - Past Medical History & Family History Past Medical History?: Yes - Past Social History Smoking Status: Former Smoker Alcohol: None Drugs: Denies Home Situation {Lives}: Alone - CARDIAC Hx Cardiac Disorders: Yes - PULMONARY Hx Chronic Obstructive Pulmonary Disease (COPD): Yes - NEUROLOGICAL Hx Seizures: Yes (LAST SEIZURE APR 2015) Hx Transient Ischemic Attacks (TIA): Yes - HEENT Hx HEENT Problems: Yes Hx Cataracts: Yes Other/Comment: HAS H/O RETINAL DETACHEMENT LEFT EYE - RENAL Hx Chronic Kidney Disease: Yes Hx Renal (Kidney) Cancer: Yes - ENDOCRINE/METABOLIC Hx Endocrine Disorders: No - HEMATOLOGICAL/ONCOLOGICAL Hx Cancer: Yes (renal, skin) - INTEGUMENTARY Hx Dermatological Problems: Yes 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) - MUSCULOSKELETAL/RHEUMATOLOGICAL Hx Musculoskeletal Disorders: Yes Hx Falls: No Hx Unsteady Gait: Yes - GASTROINTESTINAL Hx Gastrointestinal Disorders: Yes (Small bowel obstruction) Other/Comment: Small bowel obstruction - GENITOURINARY/GYNECOLOGICAL Hx Genitourinary Disorders: No - PSYCHIATRIC Hx Depression: No Hx Substance Use: No - SURGICAL HISTORY Hx Surgeries: Yes Hx Cardiac Catheterization: Yes - ANESTHESIA Hx Anesthesia Reactions: No Hx Malignant Hyperthermia: No Meds Allergies/Adverse Reactions: Allergies Allergy/AdvReac Type Severity Reaction Status Date / Time Penicillins Allergy RASH Verified 03/21/18 16:45 tetanus and diphtheria Allergy RASH/DIZZY Verified 03/21/18 16:45 toxoids [tetanus & diphtheria toxoids] - Medications Medications: Current Medications Aspirin (Aspirin Chewable) 81 mg PO DAILY [facility] Last Admin: 03/23/18 09:35 Dose: 81 mg Atorvastatin Calcium (Lipitor) 20 mg PO HS [facility] Last Admin: 03/22/18 21:39 Dose: 20 mg Furosemide (Lasix) 40 mg PO DAILY [facility] Last Admin: 03/23/18 09:35 Dose: 40 mg Sodium Chloride (Sodium Chloride 0.9%) 1,000 mls @ 100 mls/hr IV .Q10H [facility] Last Admin: 03/22/18 18:11 Dose: 100 mls/hr Lamotrigine (Lamictal) 150 mg PO BID [facility] PRN Reason: Protocol Last Admin: 03/23/18 09:35 Dose: 150 mg Losartan Potassium (Cozaar) 100 mg PO DAILY [facility] Last Admin: 03/23/18 09:35 Dose: 100 mg Non-Formulary Medication (Multivitamin With Iron [Daily Paola With Iron]) 1 tab PO DAILY [facility] Last Admin: 03/23/18 09:55 Dose: Not Given Pantoprazole Sodium (Protonix Ec Tab) 40 mg PO ACB [facility] Last Admin: 03/23/18 09:35 Dose: 40 mg Polyethylene Glycol (Miralax) 17 gm PO BID PRN PRN Reason: Constipation Last Admin: 03/23/18 09:35 Dose: 17 gm Psyllium Hydrophilic Mucilloid (Hydrocil Instant) 1 pkt PO DAILY [facility] Last Admin: 03/22/18 11:29 Dose: Not Given Physical Exam - Constitutional Appears: Well, Non-toxic, No Acute Distress - Head Exam Head Exam: ATRAUMATIC, NORMAL INSPECTION - Eye Exam Eye Exam: EOMI, Normal appearance, PERRL - ENT Exam ENT Exam: Mucous Membranes Moist - Neck Exam Neck exam: Positive for: Normal Inspection - Respiratory Exam Respiratory Exam: NORMAL BREATHING PATTERN. absent: Respiratory Distress - Cardiovascular Exam Cardiovascular Exam: RRR, +S1, +S2 - GI/Abdominal Exam GI & Abdominal Exam: Normal Bowel Sounds, Soft. absent: Distended, Tenderness - Extremities Exam Extremities exam: Positive for: full ROM, normal inspection - Back Exam Back exam: NORMAL INSPECTION - Neurological Exam Neurological exam: Alert, CN II-XII Intact, Oriented x3 Additional comments: no motor sensory deficits b/l equal facial sensation - Psychiatric Exam Psychiatric exam: Normal Mood - Skin Skin Exam: Normal Color Results - Vital Signs Recent Vital Signs: Last Vital Signs Temp 98.2 F 03/23/18 06:00 Pulse 63 03/23/18 06:00 Resp 19 03/23/18 06:00 BP 158/99 H 03/23/18 09:35 Pulse Ox 97 03/23/18 06:00 - Labs Result Diagrams: 03/23/18 06:30 03/23/18 06:30 Labs: Laboratory Results - last 24 hr 03/22/18 03/22/18 03/22/18 07:10 11:34 15:13 WBC RBC Hgb Hct MCV MCH MCHC RDW Plt Count MPV Sodium Potassium Chloride Carbon Dioxide Anion Gap BUN Creatinine Est GFR ( Amer) Est GFR (Non-Af Amer) POC Glucose (mg/dL) 81 94 168 H Random Glucose Calcium Phosphorus Magnesium Total Bilirubin AST ALT Alkaline Phosphatase Troponin I Total Protein Albumin Globulin Albumin/Globulin Ratio 03/22/18 03/22/18 03/22/18 16:06 17:30 21:27 WBC RBC Hgb Hct MCV MCH MCHC RDW Plt Count MPV Sodium Potassium Chloride Carbon Dioxide Anion Gap BUN Creatinine Est GFR ( Amer) Est GFR (Non-Af Amer) POC Glucose (mg/dL) 101 89 Random Glucose Calcium Phosphorus Magnesium Total Bilirubin AST ALT Alkaline Phosphatase Troponin I < 0.01 Total Protein Albumin Globulin Albumin/Globulin Ratio 03/23/18 03/23/18 03/23/18 06:30 06:30 07:32 WBC 4.2 L RBC 4.70 Hgb 14.0 Hct 42.9 MCV 91.3 MCH 29.8 MCHC 32.6 RDW 13.9 Plt Count 151 MPV 11.1 H Sodium 144 Potassium 4.0 Chloride 109 H Carbon Dioxide 28 Anion Gap 11 BUN 10 Creatinine 0.7 Est GFR ( Amer) > 60 Est GFR (Non-Af Amer) > 60 POC Glucose (mg/dL) 78 Random Glucose 84 Calcium 10.0 Phosphorus 2.8 Magnesium 2.0 Total Bilirubin 0.6 AST 25 ALT 21 Alkaline Phosphatase 56 Troponin I < 0.01 Total Protein 5.8 Albumin 3.3 Globulin 2.5 Albumin/Globulin Ratio 1.4 Assessment & Plan - Assessment and Plan (Free Text) Assessment: 82 year old female with a past medical history of L renal cancer ( resected w/o chemo/radiation Rx) with brain and nasal skin metastasis, LBBB, coronary artery disease, diverticulitis, COPD, hypertension, hyperlipidemia, TIA , Seizures who presented to ED with complaints of left sided weakness. CODE STROKE was called as well DIRECTOR BROADCAST for similar symptoms on right side. Carotid US showed bilateral 20-39% ICA stenosis. MRI brain shows old craniotomy defect in the left occipital bone, but no other lesions or acute intracranial findings other than severe chronic microvascular periventricular white matter changes and moderate atrophy. Plan: Intermittent bilateral sided and facial weakness, likely chronic and psychogenic in nature - Continue aspirin daily - Pureed diet with thin liquids - Continue PT - Seizure and aspiration precautions - Moderate fall risk - GI and DVT ppx - patient is stable and at baseline, can safely discharge w/ follow-up with Neurologist Dr. Montenegro and PMD Dr. Hernandez - EEG ordered by COMPUTER LABORATORY TECHNICIAN per Dr. Linares's recommendations; not necessary at this time, but can d/c after EEG is read - Further recs per Dr. Dasilva Case was reviewed and discussed with attending, Dr. Brown Rosas PGY2 <Sania Dasilva - Last Filed: 03/23/18 15:23> Meds - Medications Medications: Current Medications Aspirin (Aspirin Chewable) 81 mg PO DAILY [facility] Last Admin: 03/23/18 09:35 Dose: 81 mg Atorvastatin Calcium (Lipitor) 20 mg PO HS [facility] Last Admin: 03/22/18 21:39 Dose: 20 mg Furosemide (Lasix) 40 mg PO DAILY [facility] Last Admin: 03/23/18 09:35 Dose: 40 mg Sodium Chloride (Sodium Chloride 0.9%) 1,000 mls @ 100 mls/hr IV .Q10H [facility] Last Admin: 03/23/18 14:01 Dose: Not Given Lamotrigine (Lamictal) 150 mg PO BID [facility] PRN Reason: Protocol Last Admin: 03/23/18 09:35 Dose: 150 mg Losartan Potassium (Cozaar) 100 mg PO DAILY [facility] Last Admin: 03/23/18 09:35 Dose: 100 mg Non-Formulary Medication (Multivitamin With Iron [Daily Paola With Iron]) 1 tab PO DAILY [facility] Last Admin: 03/23/18 09:55 Dose: Not Given Pantoprazole Sodium (Protonix Ec Tab) 40 mg PO ACB [facility] Last Admin: 03/23/18 09:35 Dose: 40 mg Polyethylene Glycol (Miralax) 17 gm PO BID PRN PRN Reason: Constipation Last Admin: 03/23/18 09:35 Dose: 17 gm Psyllium Hydrophilic Mucilloid (Hydrocil Instant) 1 pkt PO DAILY [facility] Last Admin: 03/23/18 10:19 Dose: 1 pkt Results - Vital Signs Recent Vital Signs: Last Vital Signs Temp 97.9 F 03/23/18 11:49 Pulse 95 H 03/23/18 14:00 Resp 20 03/23/18 11:49 BP 163/99 H 03/23/18 11:49 Pulse Ox 97 03/23/18 06:00 - Labs Result Diagrams: 03/23/18 06:30 03/23/18 06:30 Labs: Laboratory Results - last 24 hr 03/22/18 03/22/18 03/22/18 16:06 17:30 21:27 WBC RBC Hgb Hct MCV MCH MCHC RDW Plt Count MPV Sodium Potassium Chloride Carbon Dioxide Anion Gap BUN Creatinine Est GFR ( Amer) Est GFR (Non-Af Amer) POC Glucose (mg/dL) 101 89 Random Glucose Calcium Phosphorus Magnesium Total Bilirubin AST ALT Alkaline Phosphatase Troponin I < 0.01 Total Protein Albumin Globulin Albumin/Globulin Ratio 03/23/18 03/23/18 03/23/18 06:30 06:30 07:32 WBC 4.2 L RBC 4.70 Hgb 14.0 Hct 42.9 MCV 91.3 MCH 29.8 MCHC 32.6 RDW 13.9 Plt Count 151 MPV 11.1 H Sodium 144 Potassium 4.0 Chloride 109 H Carbon Dioxide 28 Anion Gap 11 BUN 10 Creatinine 0.7 Est GFR ( Amer) > 60 Est GFR (Non-Af Amer) > 60 POC Glucose (mg/dL) 78 Random Glucose 84 Calcium 10.0 Phosphorus 2.8 Magnesium 2.0 Total Bilirubin 0.6 AST 25 ALT 21 Alkaline Phosphatase 56 Troponin I < 0.01 Total Protein 5.8 Albumin 3.3 Globulin 2.5 Albumin/Globulin Ratio 1.4 Assessment & Plan - Assessment and Plan (Free Text) Plan: Neurology attending note: EEG ordered to rule out seizure. agree with above. Dr. Dasilva
[2018-03-23] MEDS: Psyllium Packet PO SCH (10:19)
--- NOTE | 2018-03-23 10:25 | PN ---
Copied To: Nilson Saenz MD Attending MD: Nilson Saenz MD DATE: 03/23/2018 SUBJECTIVE: The patient is chest pain free, sitting in a chair, without shortness of breath, without complaints. PHYSICAL EXAMINATION: VITAL SIGNS: Blood pressure is 159/76, heart rate is in the 60s. NECK: Negative JVD. LUNGS: Without rales. HEART: S1, S2. EXTREMITIES: Without edema. LABORATORY DATA: EKG shows no changes from a bundle-branch block. Troponins are negative. IMPRESSION: 1. Recurrent intermittent chest pain which the patient does not recall. 2. Intermittent facial weakness. 3. Stable angina. 4. No evidence for acute coronary syndrome. 5. Hypertension. 6. Abnormal EKG. Given these findings, there is no evidence that the patient's chest pain which the patient does not remember is of cardiac, ischemic in nature. A stress test 3 weeks ago was normal. Given these findings, I have discussed with the patient about possible cardiac catheterization if she continues to experience these episodes of chest pain. Will need to wait for the final results of Neurology before considering an invasive cardiac procedure. Nilson Saenz MD
--- NOTE | 2018-03-23 12:43 | CP.PCM.PN ---
Subjective - Date & Time of Evaluation Date of Evaluation: 03/23/18 Time of Evaluation: 07:00 - Subjective Subjective: Internal Medicine Progress Note for Dr. Ella Wise PGY1 82F seen and evaluated at bedside this morning. CONVEYOR SYSTEM OPERATOR was called on her yesterday for new onset right sided weakness. Full dose of aspirin was given at that time. The symptoms resolved and have not recurred since. No acute events overnight. States there is a odd sensation in her left check and some right arm weakness. Patient complains that she has yet to have a bowel movement since admission. She is able to walk to the bathroom without difficulty. She has been put on a soft, heart health diet after patient seen by speech pathology. Denies any fever, chills, nausea, vomiting, change in vision, difficulty swallowing, headache, dizziness, confusion, abdominal pain, or urinary symptoms. Objective - Vital Signs/Intake and Output Vital Signs (last 24 hours): Temp Pulse Resp BP Pulse Ox 97.9 F 65 20 163/99 H 97 03/23/18 11:49 03/23/18 11:49 03/23/18 11:49 03/23/18 11:49 03/23/18 06:00 Intake and Output: 03/23/18 03/23/18 06:59 18:59 Intake Total 1560 Balance 1560 - Medications Medications: Current Medications Aspirin (Aspirin Chewable) 81 mg PO DAILY [facility] Last Admin: 03/23/18 09:35 Dose: 81 mg Atorvastatin Calcium (Lipitor) 20 mg PO HS [facility] Last Admin: 03/22/18 21:39 Dose: 20 mg Furosemide (Lasix) 40 mg PO DAILY [facility] Last Admin: 03/23/18 09:35 Dose: 40 mg Sodium Chloride (Sodium Chloride 0.9%) 1,000 mls @ 100 mls/hr IV .Q10H [facility] Last Admin: 03/22/18 18:11 Dose: 100 mls/hr Lamotrigine (Lamictal) 150 mg PO BID [facility] PRN Reason: Protocol Last Admin: 03/23/18 09:35 Dose: 150 mg Losartan Potassium (Cozaar) 100 mg PO DAILY [facility] Last Admin: 03/23/18 09:35 Dose: 100 mg Non-Formulary Medication (Multivitamin With Iron [Daily Paola With Iron]) 1 tab PO DAILY [facility] Last Admin: 03/23/18 09:55 Dose: Not Given Pantoprazole Sodium (Protonix Ec Tab) 40 mg PO ACB [facility] Last Admin: 03/23/18 09:35 Dose: 40 mg Polyethylene Glycol (Miralax) 17 gm PO BID PRN PRN Reason: Constipation Last Admin: 03/23/18 09:35 Dose: 17 gm Psyllium Hydrophilic Mucilloid (Hydrocil Instant) 1 pkt PO DAILY [facility] Last Admin: 03/23/18 10:19 Dose: 1 pkt - Labs Labs: 03/23/18 06:30 03/23/18 06:30 PT 10.4 SECONDS (9.4-12.5) 03/21/18 16:20 INR 0.91 03/21/18 16:20 APTT 27.9 Seconds (25.1-36.5) 03/21/18 16:20 - Constitutional Appears: Well, Non-toxic, No Acute Distress - Head Exam Head Exam: ATRAUMATIC, NORMAL INSPECTION, NORMOCEPHALIC Additional comments: left sided facial droop - Eye Exam Eye Exam: EOMI - ENT Exam ENT Exam: Mucous Membranes Dry - Neck Exam Neck Exam: absent: Tenderness, Thyromegaly - Respiratory Exam Respiratory Exam: Clear to Ausculation Bilateral, NORMAL BREATHING PATTERN - Cardiovascular Exam Cardiovascular Exam: REGULAR RHYTHM, +S1, +S2. absent: Murmur - GI/Abdominal Exam GI & Abdominal Exam: Soft, Normal Bowel Sounds. absent: Tenderness - Neurological Exam Neurological Exam: Alert, Awake, Oriented x3 Neuro motor strength exam: Left Upper Extremity: 5, Right Upper Extremity: 5, Left Lower Extremity: 5, Right Lower Extremity: 5 - Psychiatric Exam Psychiatric exam: Normal Affect, Normal Mood Assessment and Plan - Assessment and Plan (Free Text) Assessment: 82F, with past medical history significant for renal cell carcinoma of the left kidney with brain metastases and recent metastases to third left rib, skin cancer of the nose, diverticulitis, anemia, gastric ulcer, hypertension, COPD, TIA, left bundle branch block, seizure disorder, GI bleed, and coronary artery disease that presented to the emergency room with left facial droop, left sided weakness, and chest pain. Plan: 1. Left sided facial droop, weakness - Code Stroke in the Emergency Department - Currently on telemetry - CT head: no acute findings - Carotid US: 20-39% stenosis of ICA bilaterally - Brain MRI: 3.5cm craniotomy lesion, no intracranial findings, no lesions - Neurology consulted, recommendations appreciated - Speech and swallow evaluation: soft, heart health, thin diet - Pending PT evaluation - Seizure precautions - Fall precautions - NS @100 - Follow up EEG to rule out recent seizures 2. Chest Pain - Troponins negative x3 - Lipid panel wnl - TSH wnl - Cardiology, Dr Saenz consulted: If not symptomatic, patient should follow up as outpatient. - Continue with home medications, Lipitor, Cozaar, Aspirin 3. Intermittent Aphasia - Residual effects of CVA vs. Mass effect secondary to metastases vs. seizures vs. somatiform disorder - Neurology consulted, recommendations appreciated - CT neck: no signs of metastases 4. History of Seizures - Continue with Lamictal - Neurology consulted, recommendations appreciated - Seizure precautions 5. 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 Linares outpatient. Recently discussed Immunotherapy if approved by Medicare - Heme/Onc, Dr. Linares consulted recommendations appreciated 6. Hypertension - Continue with home medications - Will continue to monitor BP 7. Bilateral lower extremity edema, improving - Continue Lasix - Duplex LE US: negative 8. History of COPD - No acute exacerbation - Will continue to monitor GI: Protonix DVT: SCDs Diet: NPO Patient seen and case discussed with Dr. Melvin Wise PGY1
[2018-03-23] MEDS: Sodium Chloride 0.9% 1,000 ML IV SCH (14:01)
--- NOTE | 2018-03-23 14:15 | CP.PCM.PN ---
Subjective - Date & Time of Evaluation Date of Evaluation: 03/23/18 Time of Evaluation: 14:10 - Subjective Subjective: Paris Beebe, pGY2, Heme-Onc Progress Note for Dr Linares: Patient seen and examined at bedside. SUPERVISOR ROVING DEPARTMENT called yesterday afternoon as patient started having right sided new onset weakness, blurry vision. This morning, patient states that her right and left sided symptoms are intermittent, currently states that she may have mild paresthesia on left side of her face. Patient ambulating well to the bathroom. Eating well. BM this AM. Denies fevers , chills, nausea, vomiting. Objective - Vital Signs/Intake and Output Vital Signs (last 24 hours): Temp Pulse Resp BP Pulse Ox 97.9 F 65 20 163/99 H 97 03/23/18 11:49 03/23/18 11:49 03/23/18 11:49 03/23/18 11:49 03/23/18 06:00 Intake and Output: 03/23/18 03/23/18 06:59 18:59 Intake Total 1560 Balance 1560 - Medications Medications: Current Medications Aspirin (Aspirin Chewable) 81 mg PO DAILY [facility] Last Admin: 03/23/18 09:35 Dose: 81 mg Atorvastatin Calcium (Lipitor) 20 mg PO HS [facility] Last Admin: 03/22/18 21:39 Dose: 20 mg Furosemide (Lasix) 40 mg PO DAILY [facility] Last Admin: 03/23/18 09:35 Dose: 40 mg Sodium Chloride (Sodium Chloride 0.9%) 1,000 mls @ 100 mls/hr IV .Q10H [facility] Last Admin: 03/23/18 14:01 Dose: Not Given Lamotrigine (Lamictal) 150 mg PO BID [facility] PRN Reason: Protocol Last Admin: 03/23/18 09:35 Dose: 150 mg Losartan Potassium (Cozaar) 100 mg PO DAILY [facility] Last Admin: 03/23/18 09:35 Dose: 100 mg Non-Formulary Medication (Multivitamin With Iron [Daily Paola With Iron]) 1 tab PO DAILY [facility] Last Admin: 03/23/18 09:55 Dose: Not Given Pantoprazole Sodium (Protonix Ec Tab) 40 mg PO ACB [facility] Last Admin: 03/23/18 09:35 Dose: 40 mg Polyethylene Glycol (Miralax) 17 gm PO BID PRN PRN Reason: Constipation Last Admin: 03/23/18 09:35 Dose: 17 gm Psyllium Hydrophilic Mucilloid (Hydrocil Instant) 1 pkt PO DAILY [facility] Last Admin: 03/23/18 10:19 Dose: 1 pkt - Labs Labs: 03/23/18 06:30 03/23/18 06:30 PT 10.4 SECONDS (9.4-12.5) 03/21/18 16:20 INR 0.91 03/21/18 16:20 APTT 27.9 Seconds (25.1-36.5) 03/21/18 16:20 - Additional Findings Additional findings: - Constitutional Appears: Non-toxic, No Acute Distress - Head Exam Head Exam: ATRAUMATIC, NORMOCEPHALIC - Eye Exam Eye Exam: EOMI, PERRL. absent: Conjunctival injection, Nystagmus, Scleral icterus Pupil Exam: NORMAL ACCOMODATION, PERRL. absent: Irregular, Miosis, Mydriatic, Unequal - ENT Exam ENT Exam: Mucous Membranes Moist - Neck Exam Neck exam: Positive for: Full Rom - Respiratory Exam Respiratory Exam: Clear to Auscultation Bilateral, NORMAL BREATHING PATTERN. absent: Chest Wall Tenderness, Decreased Breath Sounds, Rales, Rhonchi, Wheezes , Respiratory Distress, Stridor - Cardiovascular Exam Cardiovascular Exam: RRR, +S1, +S2. absent: Systolic Murmur - GI/Abdominal Exam GI & Abdominal Exam: Normal Bowel Sounds, Soft. absent: Distended, Firm, Mass, Organomegaly, Pulsatile Mass, Rebound, Rigid - Extremities Exam Extremities exam: Positive for: normal inspection. Negative for: calf tenderness, pedal edema - Back Exam Back exam: NORMAL INSPECTION. absent: CVA tenderness (L), CVA tenderness (R) - Neurological Exam Neurological exam: Alert, CN II-XII Intact, Oriented x3 Additional comments: low tone of voice. left sided facial droop and mild left sided ptosis - Psychiatric Exam Psychiatric exam: Normal Affect, Normal Mood - Skin Skin Exam: Dry, Normal Color, Warm Assessment and Plan - Assessment and Plan (Free Text) Assessment: 82 year old female with PMH stage IV renal cell carcinoma (resected without chemo/radiation treatment) with brain and nasal skin metastasis s/p craniotomy, LBBB, coronary artery disease, diverticulitis, COPD, hypertension, hyperlipidemia, TIA, Seizures, presents for left sided weakness, slurring of speech, facial droop. Head CT negative for acute changes, metastasis. Patient was recently found to have metastatic renal cancer to left 3rd rib. Will likely go for immunotherapy outpatient, awaiting insurance approval: - c/w CVA, neurology workup - Recommend EEG as patient has history of seizure disorder - MRI brain shows old craniotomy defect in the left occipital bone, but no other lesions or acute intracranial findings other than severe chronic microvascular periventricular white matter changes and moderate atrophy. - stable from oncology standpoint - will monitor Case discussed with Dr Linares.
--- NOTE | 2018-03-23 14:44 | CP.PCM.PN ---
Subjective - Date & Time of Evaluation Date of Evaluation: 03/23/18 Time of Evaluation: 13:00 - Subjective Subjective: Alert, states she is feeling better. Objective - Vital Signs/Intake and Output Vital Signs (last 24 hours): Temp Pulse Resp BP Pulse Ox 97.9 F 65 20 163/99 H 97 03/23/18 11:49 03/23/18 11:49 03/23/18 11:49 03/23/18 11:49 03/23/18 06:00 Intake and Output: 03/23/18 03/23/18 06:59 18:59 Intake Total 1560 Balance 1560 - Medications Medications: Current Medications Aspirin (Aspirin Chewable) 81 mg PO DAILY [facility] Last Admin: 03/23/18 09:35 Dose: 81 mg Atorvastatin Calcium (Lipitor) 20 mg PO HS [facility] Last Admin: 03/22/18 21:39 Dose: 20 mg Furosemide (Lasix) 40 mg PO DAILY [facility] Last Admin: 03/23/18 09:35 Dose: 40 mg Sodium Chloride (Sodium Chloride 0.9%) 1,000 mls @ 100 mls/hr IV .Q10H [facility] Last Admin: 03/23/18 14:01 Dose: Not Given Lamotrigine (Lamictal) 150 mg PO BID ERIKA PRN Reason: Protocol Last Admin: 03/23/18 09:35 Dose: 150 mg Losartan Potassium (Cozaar) 100 mg PO DAILY [facility] Last Admin: 03/23/18 09:35 Dose: 100 mg Non-Formulary Medication (Multivitamin With Iron [Daily Paola With Iron]) 1 tab PO DAILY [facility] Last Admin: 03/23/18 09:55 Dose: Not Given Pantoprazole Sodium (Protonix Ec Tab) 40 mg PO ACB [facility] Last Admin: 03/23/18 09:35 Dose: 40 mg Polyethylene Glycol (Miralax) 17 gm PO BID PRN PRN Reason: Constipation Last Admin: 03/23/18 09:35 Dose: 17 gm Psyllium Hydrophilic Mucilloid (Hydrocil Instant) 1 pkt PO DAILY [facility] Last Admin: 03/23/18 10:19 Dose: 1 pkt - Labs Labs: 03/23/18 06:30 03/23/18 06:30 PT 10.4 SECONDS (9.4-12.5) 03/21/18 16:20 INR 0.91 03/21/18 16:20 APTT 27.9 Seconds (25.1-36.5) 03/21/18 16:20 - Constitutional Appears: No Acute Distress, Chronically Ill - Head Exam Additional comments: left facial droop improving - Eye Exam Eye Exam: Normal appearance, PERRL - ENT Exam ENT Exam: Mucous Membranes Moist - Respiratory Exam Respiratory Exam: Clear to Ausculation Bilateral, NORMAL BREATHING PATTERN - Cardiovascular Exam Cardiovascular Exam: REGULAR RHYTHM, +S1 - GI/Abdominal Exam GI & Abdominal Exam: Soft, Normal Bowel Sounds - Extremities Exam Extremities Exam: Normal Inspection - Neurological Exam Neurological Exam: Alert, Oriented x3 - Skin Skin Exam: Dry, Warm Assessment and Plan - Assessment and Plan (Free Text) Assessment: 82 year old female with history of left renal cancer s/p resection/chemo/ radiation,CAD,TIA,COPD, seizure disorder who is admitted with intermittent weakness, left facial droop. The I met with patient and son yesterday regarding advance care planning. Patient did not want to complete POLST form at that time. Today patient/son requested that I come back and explain the difference between the Advance Directive and POLST again. I had another lengthy discussion with them about each document. Questions answered. The patient states she does not want CPR/intubation and wants to be DNR/DNI. Son is in agreement with her wishes. POLST DNR/DNI completed, a copy is placed in the chart. Tis epnt with pant and don in goals of care abfd advance care planning discussion, 50 minutes Plan: Goals of care and advance care planning, POLST:DNR/DNI Seizure disorder: On seizure precautions, continue Lamictal, EEG pending Weakness: PT/OT Daily ASA
[2018-03-23 16:49] VITALS: BP 139/73; PULSE 80; RESP 18; TEMP 98; O2SAT 98
--- NOTE | 2018-03-24 05:54 | CP.PCM.DIS ---
Provider - Provider Date of Admission: 03/21/18 17:07 Attending physician: Ella Charles DO Primary care physician: Dawit Hernandez MD Consults: Oncology - Dr. Linares Neurology - Dr. Dasilva Cardiology - Dr. Saenz Palliative - Dr. Mujica Time Spent in preparation of Discharge (in minutes): 100 Hospital Course - Lab Results Lab Results: Most Recent Lab Values WBC 4.2 10^3/ul (4.5-11.0) L 03/23/18 06:30 RBC 4.70 10^6/uL (3.5-6.1) 03/23/18 06:30 Hgb 14.0 g/dL (12.0-16.0) 03/23/18 06:30 Hct 42.9 % (36.0-48.0) 03/23/18 06:30 MCV 91.3 fl (80.0-105.0) 03/23/18 06:30 MCH 29.8 pg (25.0-35.0) 03/23/18 06:30 MCHC 32.6 g/dl (31.0-37.0) 03/23/18 06:30 RDW 13.9 % (11.5-14.5) 03/23/18 06:30 Plt Count 151 10^3/uL (120.0-450.0) 03/23/18 06:30 MPV 11.1 fl (7.0-11.0) H 03/23/18 06:30 Gran % 44.6 % (50.0-68.0) L 03/21/18 16:20 Lymph % (Auto) 44.9 % (22.0-35.0) H 03/21/18 16:20 [place] % (Auto) 8.7 % (1.0-6.0) H 03/21/18 16:20 Eos % (Auto) 1.4 % (1.5-5.0) L 03/21/18 16:20 Baso % (Auto) 0.4 % (0.0-3.0) 03/21/18 16:20 Gran # 2.22 (1.4-6.5) 03/21/18 16:20 Lymph # (Auto) 2.2 (1.2-3.4) 03/21/18 16:20 [place] # (Auto) 0.4 (0.1-0.6) 03/21/18 16:20 Eos # (Auto) 0.1 (0.0-0.7) 03/21/18 16:20 Baso # (Auto) 0.02 K/mm3 (0.0-2.0) 03/21/18 16:20 PT 10.4 SECONDS (9.4-12.5) 03/21/18 16:20 INR 0.91 03/21/18 16:20 APTT 27.9 Seconds (25.1-36.5) 03/21/18 16:20 Sodium 144 mmol/L (132-148) 03/23/18 06:30 Potassium 4.0 mmol/L (3.6-5.0) 03/23/18 06:30 Chloride 109 mmol/L (98-107) H 03/23/18 06:30 Carbon Dioxide 28 mmol/L (21-33) 03/23/18 06:30 Anion Gap 11 (10-20) 03/23/18 06:30 BUN 10 mg/dL (7-21) 03/23/18 06:30 Creatinine 0.7 mg/dl (0.7-1.2) 03/23/18 06:30 Est GFR ( Amer) > 60 03/23/18 06:30 Est GFR (Non-Af Amer) > 60 03/23/18 06:30 POC Glucose (mg/dL) 123 mg/dL (65-110) H 03/23/18 16:44 Random Glucose 84 mg/dL (70-110) 03/23/18 06:30 Hemoglobin A1c 6.1 % (4.2-6.5) 03/21/18 16:20 Calcium 10.0 mg/dL (8.4-10.5) 03/23/18 06:30 Phosphorus 2.8 mg/dL (2.5-4.5) 03/23/18 06:30 Magnesium 2.0 mg/dL (1.7-2.2) 03/23/18 06:30 Total Bilirubin 0.6 mg/dL (0.2-1.3) 03/23/18 06:30 AST 25 U/L (14-36) 03/23/18 06:30 ALT 21 U/L (7-56) 03/23/18 06:30 Alkaline Phosphatase 56 U/L (38-126) 03/23/18 06:30 Lactate Dehydrogenase 426 U/L (333-699) 03/22/18 05:40 Total Creatine Kinase 62 U/L (35-230) 03/22/18 05:40 Troponin I < 0.01 ng/mL 03/23/18 06:30 Total Protein 5.8 g/dL (5.8-8.3) 03/23/18 06:30 Albumin 3.3 g/dL (3.0-4.8) 03/23/18 06:30 Globulin 2.5 gm/dL 03/23/18 06:30 Albumin/Globulin Ratio 1.4 (1.1-1.8) 03/23/18 06:30 Triglycerides 106 mg/dL (35-160) 03/21/18 16:20 Cholesterol 166 mg/dL (130-200) 03/21/18 16:20 LDL Cholesterol Direct 63 mg/dL (0-129) 03/21/18 16:20 HDL Cholesterol 76 mg/dL (29-60) H 03/21/18 16:20 TSH 3rd Generation 1.48 mIU/mL (0.46-4.68) 03/21/18 16:20 - Hospital Course Hospital Course: 82F with PMH of 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 Patient was accompanied by her son who reports she began experiencing left sided facial drooping and loss of voice accompanying the chest pain earlier that morning while visiting her PMD and neurologist. Similar symptoms of less intensity occurred periodically throughout the week prompting the appointment with her physicians. In the ED, Code stroke was called and stroke protocol was initiated. Patient was determined not to be a TPa candidate due to history of renal cancer with metastatic disease. IVF were initiated. CT head revealed no acute intracranial abnormalities. Chest X-ray revealed a left- sided pleural mass over the 3 rd rib consistent with metastatic disease. EEG showed sinus rhythm with a 1 st degree heart block and previous LBBB. Carotid duplex revealed bilateral 20-39% proximal Internal carotid artery stenosis and antegrade flow in both vertebral arteries. Brain MRI was ordered revealing a 3.5 cm craniotomy defect in the left occipital bone at the site of a previously seen lesion. Patient was admitted to telemetry for TIA. Neurology was subsequently consulted. Repeat ECG taken the next morning reflected the same findings while in the ED. Lower Extremity US was ordered secondary to lower extremity swelling and came out negative for DVT. Cardiology was consulted who recommended outpatient follow up. Heme/Onc was consulted upon further evaluation of the metastatic lesion over the left 3 rd rib. On 03/22/18, rapid response was called due to new onset right sided facial drooping and weakness. WINDER OPERATOR lasted 20 min and no additional complaints. Patient was given a full dose of aspirin. Repeat ECG showed no acute changes. Patient placed on NPO diet after exhibiting vocal losses during examination. Speech and swallow was consulted with recommendations to advance her to a soft diet upon repeat evaluation. Patient was cleared to continue home medications by mouth. Patient was examined again on 03/23 with no new complaints. Patient was ambulating with no trouble and had a bowel movement in the morning after receiving metamucil. Heme/Onc signed off with further recommendation to follow-up as scheduled previously. Patient is to follow up with her primary medical doctor and neurology within 3-5 days. - Date & Time of H&P Date of H&P: 03/21/18 Time of H&P: 21:25 Discharge Exam - Head Exam Head Exam: ATRAUMATIC, NORMAL INSPECTION - Eye Exam Eye Exam: EOMI, PERRL - ENT Exam ENT Exam: Mucous Membranes Dry - Respiratory Exam Respiratory Exam: Clear to PA & Lateral, NORMAL BREATHING PATTERN, UNREMARKABLE. absent: Wheezes - Cardiovascular Exam Cardiovascular Exam: REGULAR RHYTHM, +S1, +S2. absent: Systolic Murmur - GI/Abdominal Exam GI & Abdominal Exam: Normal Bowel Sounds, Soft. absent: Tenderness - Neurological Exam Neurological exam: Alert, Oriented x3 - Psychiatric Exam Psychiatric exam: Normal Affect, Normal Mood - Skin Skin Exam: Dry, Intact Discharge Plan - Discharge Medications Prescriptions: Aspirin [Aspirin Chewable] 81 mg PO DAILY #30 chew - Follow Up Plan Condition: STABLE Disposition: HOME/ ROUTINE Instructions: Stroke (DC) Additional Instructions: Please follow up with your primary medical doctor, Dr. Hernandez, within 3-5 days. Please follow up with your neurologist, Dr. Montenegro, within 3-5 days. Please follow up with your workday financials consultant, Dr. Saenz, within 3-5 days. Please follow up with your oncologist, Dr. Linares as previously scheduled. Upon discharge, continue to take your home medications as prescribed. Please take Aspirin as prescribed. If symptoms reoccur, please return to the ED. Referrals: Antoine Montenegro MD [Staff Provider] - Dawit Hernandez MD [Primary Care Provider] - Follow up with primary Daniela Linares MD [Staff Provider] - Nilson Saenz MD [Staff Provider] -
== END 2018-03-23 19:00 | disposition home or self-care (01) | DRG 92 ==
LOC: ED 16:04 → ERH 17:07 → 2RSO 19:39
PROVIDERS: ADMIT Internal Medicine; ATTEND Hospitalist
DX: R29.810 Facial weakness (principal); C79.31 Secondary malignant neoplasm of brain; I12.9 Hypertensive chronic kidney disease with stage 1 through stage 4 chronic kidney disease, or unspecified chronic kidney disease; I25.118 Atherosclerotic heart disease of native coronary artery with other forms of angina pectoris; J44.9 Chronic obstructive pulmonary disease, unspecified; N18.9 Chronic kidney disease, unspecified; E78.00 Pure hypercholesterolemia, unspecified; G40.909 Epilepsy, unspecified, not intractable, without status epilepticus; E78.5 Hyperlipidemia, unspecified; I65.23 Occlusion and stenosis of bilateral carotid arteries; I44.7 Left bundle-branch block, unspecified; Z66 Do not resuscitate; Z92.3 Personal history of irradiation; Z95.5 Presence of coronary angioplasty implant and graft; Z86.73 Personal history of transient ischemic attack (TIA), and cerebral infarction without residual deficits; Z92.21 Personal history of antineoplastic chemotherapy; Z87.891 Personal history of nicotine dependence; Z85.828 Personal history of other malignant neoplasm of skin; Z88.0 Allergy status to penicillin; Z85.528 Personal history of other malignant neoplasm of kidney

== ENCOUNTER 2018-08-10 13:54 | Outpatient (CLI) | payer MEDICARE | END 2018-08-10 13:55 | disposition home or self-care (01) | LOC: OPLAB 13:54 | DX: D64.9 Anemia, unspecified (principal); E78.5 Hyperlipidemia, unspecified; E83.40 Disorders of magnesium metabolism, unspecified; M81.0 Age-related osteoporosis without current pathological fracture ==

== ENCOUNTER 2018-08-24 11:29 | Outpatient (CLI) | payer MEDICARE | END 2018-08-24 11:30 | disposition home or self-care (01) | LOC: OPLAB 11:29 ==

== ENCOUNTER 2018-09-02 13:32 | Outpatient (CLI) | payer MEDICARE | END 2018-09-02 13:33 | disposition home or self-care (01) | LOC: RAD 13:32 ==

== ENCOUNTER 2018-09-08 12:59 | Outpatient (CLI) | payer MEDICARE | END 2018-09-08 13:00 | disposition home or self-care (01) | LOC: OPLAB 12:59 ==

== ENCOUNTER 2018-09-08 16:36 | Inpatient (IN) | payer MEDICARE ==
[2018-09-08 16:36] VITALS: BMI 22.8
[2018-09-08] MEDS ORDERED: Sodium Chloride 0.9% 1,000 ML IV SCH ×2 (17:00→19:39)
--- NOTE | 2018-09-08 17:48 | ED PDOC ---
Arrival/HPI - General Chief Complaint: Fever Historian: Patient, Family - History of Present Illness Narrative History of Present Illness (Text): 09/08/18 17:18 83 y/o F w/ h/o L renal cancer (resected w/o chemo/radiation Rx) with brain and nasal skin metastasis, LBBB, coronary artery disease, diverticulitis, COPD, hypertension, hyperlipidemia, TIA, and Seizures, was referred to the ED by Dr. Lambert for evaluation of worsening tremors since prior to arrival. Patient informs visiting Dr. Lambert's office prior to arrival when patient experie nced increased tremulousness with intermittent altered mental status and confusion. Patient was recently started on new medication, Opdivo, by her neurologist but has not taken it yet. Patient informs periods of forgetfulness recently but denies any other somatic complaints. Patient denies any fevers, chills, headache, dizziness, chest pain, shortness of breath, dyspnea on exertion, cough, abdominal pain, nausea, vomiting, diarrhea, back pain, neck pain, or any other complaints. PMD: Dr. Lambert Time/Duration: Prior to Arrival Symptom Onset: Gradual Symptom Course: Unchanged Activities at Onset: Light Context: Other (Referred by Dr. Lambert) Past Medical History - Provider Review Nursing Documentation Reviewed: Yes - Infectious Disease Hx of Infectious Diseases: None - Tetanus Immunization Tetanus Immunization: Unknown - Cardiac Hx Cardiac Disorders: Yes - Pulmonary Hx Chronic Obstructive Pulmonary Disease (COPD): Yes - Neurological Hx Seizures: Yes (LAST SEIZURE APR 2015) Hx Transient Ischemic Attacks (TIA): Yes - HEENT Hx HEENT Disorder: Yes Hx Cataracts: Yes Other/Comment: HAS H/O RETINAL DETACHEMENT LEFT EYE - Renal Hx Renal Disorder: Yes Hx Renal Cancer: Yes - Endocrine/Metabolic Hx Endocrine Disorders: No - Hematological/Oncological Hx Cancer: Yes (renal, skin) - Integumentary Hx Dermatological Disorder: Yes 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) - Musculoskeletal/Rheumatological Hx Musculoskeletal Disorders: Yes Hx Falls: No Hx Unsteady Gait: Yes - Gastrointestinal Hx Gastrointestinal Disorders: Yes (Small bowel obstruction) Other/Comment: Small bowel obstruction - Genitourinary/Gynecological Hx Genitourinary Disorders: No - Psychiatric Hx Depression: No Hx Substance Use: No - Surgical History Hx Cardiac Catheterization: Yes - Anesthesia Hx Anesthesia: Yes Hx Anesthesia Reactions: No Hx Malignant Hyperthermia: No - Suicidal Assessment Feels Threatened In Home Enviroment: No Family/Social History - Physician Review Nursing Documentation Reviewed: Yes Family/Social History: No Known Family HX Smoking Status: Former Smoker Hx Alcohol Use: No Hx Substance Use: No Hx Substance Use Treatment: No Allergies/Home Meds Allergies/Adverse Reactions: Allergies Penicillins Allergy (Verified 03/21/18 16:45) RASH tetanus and diphtheria toxoids [tetanus & diphtheria toxoids] Allergy (Verified 03/21/18 16:45) RASH/DIZZY Home Medications: Home Meds Medication Instructions Recorded Confirmed RX: Atorvastatin [Lipitor] 20 mg PO HS 10/03/15 03/21/18 RX: Losartan [Cozaar] 100 mg PO DAILY 10/03/15 03/21/18 RX: Omeprazole 40 mg PO DAILY 10/03/15 03/21/18 RX: Multivitamin with Iron [Daily 1 tab PO DAILY 10/31/17 03/21/18 Paola with Iron] RX: Psyllium Husk (with Sugar) 3.4 gm PO DAILY 03/21/18 03/21/18 [Metamucil Packet] Review of Systems - Physician Review All systems were reviewed & negative as marked: Yes - Review of Systems Constitutional: absent: Fevers Respiratory: absent: SOB Cardiovascular: absent: Chest Pain Gastrointestinal: absent: Abdominal Pain, Diarrhea, Nausea, Vomiting Genitourinary Female: absent: Dysuria, Urine Output Changes Musculoskeletal: absent: Back Pain, Neck Pain Skin: absent: Rash Neurological: Other (Tremors). absent: Headache, Dizziness Endocrine: absent: Polyuria Psychiatric: absent: Anxiety Physical Exam Vital Signs Reviewed: Yes Temperature: Afebrile Blood Pressure: Normal Pulse: Tachycardic Respiratory Rate: Normal Appearance: Positive for: Non-Toxic, Other (Extremely tremulous) Pain Distress: None Mental Status: Positive for: Alert and Oriented X 3 - Systems Exam Head: Present: Atraumatic, Normocephalic Pupils: Present: PERRL Extroacular Muscles: Present: EOMI Conjunctiva: Present: Normal Mouth: Present: Dry Respiratory/Chest: Present: Good Air Exchange, Decreased Breath Sounds (bilaterally). No: Respiratory Distress, Accessory Muscle Use Cardiovascular: Present: Normal S1, S2, Tachycardic. No: Murmurs Abdomen: No: Tenderness, Distention, Peritoneal Signs Back: Present: Normal Inspection Upper Extremity: Present: Normal Inspection, NORMAL PULSES. No: Cyanosis, Edema Lower Extremity: Present: Normal Inspection, NORMAL PULSES. No: Edema Neurological: Present: GCS=15, CN II-XII Intact, Speech Normal Skin: Present: Warm, Dry, Normal Color. No: Rashes Psychiatric: Present: Alert, Oriented x 3, Anxious Medical Decision Making ED Course and Treatment: 09/08/18 16:53 Impression: 83 year old female presents to the ED for evaluation of worsening tremors. Differential Diagnosis included but are not limited to: -- Sepsis -- Seizure Plan: -- VBG -- CT of head -- EKG -- Labs -- Chest X-ray -- Lamotrigine level -- Keppra level -- IV Fluids -- Blood Culture -- Urine Culture -- Procalcitonin -- UA -- Reassess and disposition Prior Visits: Notes and results from previous visits were reviewed. Patient had a recent MRI performed on 09/02/18, which showed as per radiologist: No evidence of acute pathology in the brain. No evidence of enhancing mass lesion mass effect or midline shift. Mild to moderate volume and moderate white matter changes again noted. Progress Notes: 09/08/18 16:53 Labs reviewed with low WBC noted with no evidence of acute changes seen on CXR. Call placed to Dr. Byrne(PCP). 09/08/18 18:[address] Woods who accepts patient onto his service. He desires for Dr. Cohen(infectious disease) to be contacted regarding the patient's antibiotic dose. - Lab Interpretations Lab Results: 09/08/18 17:52 09/08/18 17:52 Lab Results 09/08/18 17:52: Sodium 142, Chloride 109 H, Potassium 4.6, Carbon Dioxide 26, Anion Gap 11, BUN 18, Creatinine 0.9, Est GFR ( Amer) > 60, Est GFR (Non- Af Amer) 60, Random Glucose 166 H, Calcium 10.3, Phosphorus 3.4, Magnesium 2.0, Total Bilirubin 0.2, AST 29, ALT 23, Alkaline Phosphatase 63, Troponin I < 0.01, NT-Pro-B Natriuret Pep 240, Total Protein 7.2, Albumin 4.2, Globulin 3.0, Albumin/Globulin Ratio 1.4 09/08/18 17:52: PT 11.2, INR 1.01, APTT 32.5 09/08/18 17:52: WBC 3.5 L, RBC 4.49, Hgb 13.8, Hct 43.4, MCV 96.7 D, MCH 30.7, MCHC 31.8, RDW 13.2, Plt Count 200, MPV 9.8, Neut % (Auto) 85.4 H, Lymph % (Auto) 14.3 L, [place] % (Auto) 0.3 L, Eos % (Auto) 0.0 L, Baso % (Auto) 0.0, Lymph # (Auto) 0.5 L, [place] # (Auto) 0.0 L, Eos # (Auto) 0.0, Baso # (Auto) 0.00, Absolute Neuts (auto) 2.99 09/08/18 17:40: pO2 49, VBG pH 7.34, VBG pCO2 51.0, VBG HCO3 27.5, VBG Total CO2 29.1 H, VBG O2 Sat (Calc) 90.0 H, VBG Base Excess 0.9, VBG Potassium 4.3, Sodium 143.0, Chloride 108.0 H, Glucose 177 H, Lactate 3.4 H, FiO2 21.0, Crit Value Called To Md muhammad, Crit Value Called By Rt, Blood Gas Notified Time 1749, Venous Blood Potassium 4.3 I have reviewed the lab results: Yes - RAD Interpretation Radiology Orders: 09/08/18 16:53 CHEST PORTABLE [RAD] Stat - Medication Orders Current Medication Orders: Sodium Chloride (Sodium Chloride 0.9%) 1,000 mls @ 150 mls/hr IV .Q6H40M [facility] Discontinued Medications Acetaminophen (Tylenol 325mg Tab) 650 mg PO Q4 PRN PRN Reason: Fever >100.4 F Aspirin (Ecotrin) 81 mg PO DAILY [facility] Last Admin: 09/10/18 09:04 Dose: 81 mg Furosemide (Lasix) 40 mg PO DAILY [facility] Last Admin: 09/10/18 09:04 Dose: 40 mg MAR Blood Pressure Document 09/10/18 09:04 SOUSV (Rec: 02/02/19 09:04 SOUSV [id number]) Blood Pressure Blood Pressure (100/60-150/90 mm Hg) 159/97 Sodium Chloride (Sodium Chloride 0.9%) 1,000 mls @ 150 mls/hr IV .Q6H40M [facility] Last Admin: 09/08/18 18:48 Dose: 150 mls/hr eMAR Start Stop Document 09/08/18 18:48 GMD (Rec: 09/08/18 18:48 GMD [facility] [id number] Intravenous Solution Start Date 09/08/18 Start Time 18:48 Meropenem/Sodium Chloride (Merrem Iv 500 Mg/Ns 50 Ml) 500 mg in 50 mls @ 100 mls/hr IVPB STAT STA; Protocol Stop: 09/08/18 19:47 Last Admin: 09/08/18 20:46 Dose: 100 mls/hr eMAR Start Stop Document 09/08/18 20:46 OCS (Rec: 09/08/18 20:48 OCS [facility] [id number] Intravenous Solution Start Date 09/08/18 Start Time 20:47 End Date 09/08/18 End time 21:17 Total Infusion Time 30 Sodium Chloride (Sodium Chloride 0.9%) 1,000 mls @ 75 mls/hr IV .[id number] [facility] Last Admin: 09/08/18 20:45 Dose: 75 mls/hr eMAR Start Stop Document 09/08/18 20:45 OCS (Rec: 09/08/18 20:46 [facility]CS [facility] [id number] Intravenous Solution Start Date 09/08/18 Start Time 20:46 Vancomycin HCl 1.5 gm/ Sodium (Chloride) 500 mls @ 167 mls/hr IVPB ONCE ONE; Protocol Stop: 09/09/18 10:29 Last Admin: 09/09/18 10:28 Dose: 167 mls/hr eMAR Start Stop Document 09/09/18 10:28 BIR (Rec: 09/09/18 10:29 BIR [id number]) Intravenous Solution Start Date 09/09/18 Start Time 11:30 End Date 09/09/18 End time 14:30 Total Infusion Time 180 Aztreonam (Azactam 1 Gm) 100 mls @ 100 mls/hr IVPB Q8 ERIKA; Protocol Stop: 09/16/18 07:01 Last Admin: 09/10/18 05:43 Dose: 100 mls/hr eMAR Start Stop Document 09/10/18 05:43 JS (Rec: 09/10/18 05:43 JSC [id number]) Intravenous Solution Start Date 09/10/18 Start Time 05:43 End Date 09/10/18 End time 06:43 Total Infusion Time 60 Sodium Chloride (Sodium Chloride 0.9%) 1,000 mls @ 50 mls/hr IV .Q20H [facility] Last Admin: 09/09/18 17:29 Dose: 50 mls/hr eMAR Start Stop Document 09/09/18 17:29 BIR (Rec: 09/09/18 17:29 BIR [id number]) Intravenous Solution Start Date 09/09/18 Start Time 17:29 Lamotrigine (Lamictal) 200 mg PO BID [facility]; Protocol Last Admin: 09/10/18 09:04 Dose: 200 mg Behavioural Document 09/10/18 09:04 SOUSV (Rec: 09/10/18 09:04 SOUSV [id number]) Maintenance Maintenance Dose Yes Re-Assess: Reassess Psych Meds Document 09/10/18 10:04 SOUSV (Rec: 09/10/18 11:25 SOUSV [id number]) Reassess Psych Med Effective Levetiracetam (Keppra) 1,000 mg PO BID [facility] Last Admin: 09/10/18 09:04 Dose: 1,000 mg Losartan Potassium (Cozaar) 100 mg PO DAILY [facility] Last Admin: 09/10/18 09:04 Dose: 100 mg Pantoprazole Sodium (Protonix Ec Tab) 40 mg PO DAILY [facility] Last Admin: 09/10/18 09:04 Dose: 40 mg Psyllium Hydrophilic Mucilloid (Hydrocil Instant) 1 pkt PO DAILY PRN PRN Reason: Constipation - Scribe Statement The provider has reviewed the documentation as recorded by the Yasir Newman. All medical record entries made by the Rocioibmargie were at my direction and personally dictated by me. I have reviewed the chart and agree that the record accurately reflects my personal performance of the history, physical exam, medical decision making, and the department course for this patient. I have also personally directed, reviewed, and agree with the discharge instructions and disposition. Disposition/Present on Arrival - Present on Arrival Any Indicators Present on Arrival: No History of DVT/PE: No History of Uncontrolled Diabetes: No Urinary Catheter: No History of Decub. Ulcer: No History Surgical Site Infection Following: None - Disposition Have Diagnosis and Disposition been Completed?: Yes Diagnosis: Failure to thrive, Essential tremor Disposition: HOSPITALIZED Disposition Time: 18:48 Patient Plan: Admission Condition: FAIR
[2018-09-08 17:49] LABS: VENOUS BLOOD GAS BASE EXCESS 0.9 mmol/L (0.0-2.0); VENOUS BLOOD GAS PO2 49 mm/Hg (30-55); VENOUS BLOOD PH 7.34 (7.32-7.43)
[2018-09-08 17:55] LABS: HEMOGLOBIN 13.8 g/dL (12.0-16.0); LYMPH # 0.5 (1.2-3.4); LYMPH % 14.3 % (22.0-35.0); MEAN CELL VOLUME 96.7 fl (80.0-105.0); MEAN CORPUSCULAR HEMOGLOBIN 30.7 pg (25.0-35.0); MEAN CORPUSCULAR HGB CONC 31.8 g/dl (31.0-37.0); MEAN PLATELET VOLUME 9.8 fl (7.0-11.0); MONO % 0.3 % (1.0-6.0); RBC 4.49 10^6/uL (3.5-6.1); RED CELL DISTRIBUTION WIDTH 13.2 % (11.5-14.5); WHITE BLOOD COUNT 3.5 10^3/uL (4.5-11.0)
--- NOTE | 2018-09-08 18:01 | RAD ---
Date of service: 09/08/2018 HISTORY: Sepsis Patient COMPARISON: 03/21/2018 FINDINGS: LUNGS: No active pulmonary disease. PLEURA: Increase in size of the pleural base mass on the left. This previously measured 1.7 x 2.6 cm. Current measurements 3.8 x 4.8 cm. CARDIOVASCULAR: No atherosclerotic calcification present Normal. OSSEOUS STRUCTURES: Destruction of the anterolateral left 3rd rib noted associate with the pleural base mass. VISUALIZED UPPER ABDOMEN: Normal. OTHER FINDINGS: None. IMPRESSION: No active pulmonary disease. Interval progression in size of pleural base mass left perla thorax.
[2018-09-08 18:08] LABS: INR 1.01; PARTIAL THROMBOPLASTIN TIME 32.5 Seconds (26.9-38.3); PROTHROMBIN TIME 11.2 SECONDS (9.4-12.5)
[2018-09-08 18:24] LABS: B-TYPE NATRIURETIC PEPTIDE 240 pg/mL (0-450); TROPONIN I < 0.01 ng/mL
[2018-09-08 18:28] LABS: ALB/GLOB RATIO 1.4 (1.1-1.8); ALBUMIN 4.2 g/dL (3.0-4.8); ALT/SGPT 23 U/L (7-56); AST/SGOT 29 U/L (14-36); BLOOD UREA NITROGEN 18 mg/dL (7-21); CALCIUM 10.3 mg/dL (8.4-10.5); GFR NON-AFRICAN AMERICAN 60
[2018-09-08] MEDS ORDERED: Psyllium Packet PO PRN (18:36)
[2018-09-08] MEDS ORDERED: MEROPENEM 500 MG in NS 500 MG/50 ML BAG IVPB STA (19:18)
[2018-09-08 21:08] LABS: VENOUS BLOOD GAS BASE EXCESS 2.4 mmol/L (0.0-2.0); VENOUS BLOOD GAS PO2 201 mm/Hg (30-55); VENOUS BLOOD PH 7.36 (7.32-7.43)
[2018-09-08 21:41] LABS: PH,URINE 6.5 (4.7-8.0); URINE BILIRUBIN NEGATIVE (NEGATIVE); URINE BLOOD NEGATIVE (NEGATIVE); URINE GLUCOSE (UA) NEGATIVE (NEGATIVE); URINE LEUKOCYTE ESTERASE NEGATIVE Leu/uL (NEGATIVE); URINE PROTEIN NEGATIVE mg/dL (<30 mg/dL); URINE UROBILINOGEN 0.2 E.U./dL (<1 E.U./dL)
[2018-09-08 22:14] LABS: URINE APPEARANCE CLEAR (CLEAR); URINE COLOR STRAW (YELLOW)
--- NOTE | 2018-09-09 00:37 | HP ---
DATE OF EXAM: 09/08/[address] Linares. CHIEF COMPLAINT: Rigors. HISTORY OF PRESENT ILLNESS: The patient is an 83-year-old female seen in Dr. Linares's office earlier today with treatment with Opdivo given with the patient having had visit with Dr. Montenegro, her neurologist earlier in the day. She then reported feeling very cold with the patient having uncontrolled rigors with her son in attendance. Son reports this was not her usual tremor, she did not have any type of seizure activity that was appreciated, but was reporting feeling very cold despite having four blankets on her. With this, she is now being admitted by the emergency room for evaluation of possible early sepsis she is a frail. Patient now being treated by Dr. Linares for renal cell carcinoma with metastasis status post nephrectomy, history of cranioplasty for suspicious brain metastasis. She also suffers from seizure disorder and is now reporting that she has a significant weakness generalized with the patient speaking in hush tones. 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 ALLERGIES: PENICILLIN, TETANUS AND DIPHTHERIA TOXOIDS. With her son at the bedside reporting that the PENICILLIN ALLERGY was significant which she developed prior to his . MEDICATIONS: At this time after review with her son include Lamictal 200 mg twice a day, Losartan 100 mg once a day, omeprazole 40 mg once a day, iron tablet once a day, phosphorous tablet twice a day, Lasix 40 mg once a day, aspirin 81 mg daily coated, Keppra 1000 mg twice a day as per Dr. Montenegro, her neurologist, Metamucil. She also get treated with Opdivo as per Dr. Linares's chemotherapy protocol and Aredia as indicated. She was also started on primidone earlier today by Dr. Montenegro her neurologist which will be on hold for now 25 mg at bedtime for her tremor. FAMILY HISTORY AND SOCIAL HISTORY: One son due to lung and brain cancer at age 55. 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 Quit smoking 24 years prior. Rare alcohol use, otherwise noncontributory. One son alive and well at the bedside. REVIEW OF SYSTEMS: The 12-point review of systems negative to questioning except for items mentioned in the history of present of illness as above. PHYSICAL EXAMINATION: VITAL SIGNS: Temperature 99, pulse 103, respirations 18, blood pressure 116/69, pulse ox of 86% with repeat of 93% on nasal cannula. GENERAL: She appears frail with no active rigors or shaking chills at this time, but the patient still reporting she feels cold. HEENT: Unremarkable. Tongue is moist and midline. NECK: Supple. HEART: Tachy rate, regular rhythm. Occasion ectopic beat. LUNGS: Minimal decrease breath sounds on the left. ABDOMEN: Soft, nontender. EXTREMITIES: No edema. SKIN: Warm and dry. NEUROLOGIC: Awake and alert. LABORATORY DATA: The patient did have a chest x-ray done earlier today, was read as no active pulmonary disease, interval progression in size of pleural base mass left hemithorax. The patient did have MRI of her brain done on 09/02/2018, 6 days prior read as no evidence of acute pathology in the brain, no evidence of enhancing mass, lesion, mass effect or midline shift, mild to moderate volume and moderate white matter changes again noted. She does have a 3.5 cm craniotomy defect in left occipital bone as per previous surgery as listed above. CT scan of the head was ordered today, it is pending. The patient had an EKG which was done has not been read yet. The patient's labs were done. White blood cell count of 3.5, hemoglobin 13.8, hematocrit 43.4, platelet count of 200,000 with a metabolic panel showing a normal metabolic panel with a chloride of 109, nonfasting glucose of 166. B natriuretic peptide of 240. Troponin less than 0.01 with a procalcitonin pending. ASSESSMENT: For this patient is that of renal cell carcinoma, status post partial nephrectomy with metastasis, lytic lesions, status post craniotomy, history of transient ischemic attack, chronic obstructive pulmonary disease, hypertension, seizure disorder, osteoporosis, history of retinal detachment left eye, peripheral neuropathy, atherosclerotic cardiovascular disease with stenting, hyperlipidemia. PLAN: For this patient is that rigors rule out sepsis in a frail 83-year-old female with history of renal cell carcinoma, seizure disorder. The plan for this patient to admit to the Med/Surg floor, we will ask for consult with Dr. Cohen Infectious Disease consulted with monitoring clinically with awaiting of further labs and testing as indicated with empiric antibiotics begun. This is a complex patient with a comprehensive medically necessary and appropriate visit carried out in excess of 70 minutes with the patient and her son questions answered to their satisfaction. Juan Lambert MD
[2018-09-09 06:18] LABS: BASO # 0.01 K/mm3 (0.0-2.0); BASO % 0.2 % (0.0-3.0); HEMOGLOBIN 12.4 g/dL (12.0-16.0); LYMPH # 1.4 (1.2-3.4); LYMPH % 28.1 % (22.0-35.0); MEAN CORPUSCULAR HEMOGLOBIN 30.8 pg (25.0-35.0); MEAN CORPUSCULAR HGB CONC 31.8 g/dl (31.0-37.0); MEAN PLATELET VOLUME 9.8 fl (7.0-11.0); MONO # 0.3 (0.1-0.6); MONO % 6.6 % (1.0-6.0); RBC 4.02 10^6/uL (3.5-6.1); RED CELL DISTRIBUTION WIDTH 13.1 % (11.5-14.5)
[2018-09-09 06:26] LABS: ALB/GLOB RATIO 1.3 (1.1-1.8); ALBUMIN 3.5 g/dL (3.0-4.8); ALT/SGPT 24 U/L (7-56); AST/SGOT 24 U/L (14-36); BLOOD UREA NITROGEN 19 mg/dL (7-21); CALCIUM 9.7 mg/dL (8.4-10.5); GFR NON-AFRICAN AMERICAN 53
[2018-09-09] MEDS ORDERED: Vancomycin 1.5 GM in Sodium Chloride 0.9% 500 ML IVPB ONE (07:30)
--- NOTE | 2018-09-09 08:05 | CARD ---
APPROVED REPORT Date of service: 09/08/2018 EKG Measurement Heart [id number] <Conclusion> Sinus tachycardia with 1st degree AV Block. LBBB.
--- NOTE | 2018-09-09 08:33 | CT ---
Date of service: 09/08/2018 PROCEDURE: CT HEAD WITHOUT CONTRAST. HISTORY: h/o seizure w/ rigors today COMPARISON: None available. TECHNIQUE: Axial computed tomography images were obtained through the head/brain without intravenous contrast. Radiation dose: Total exam DLP = 738.06 mGy-cm. This CT exam was performed using one or more of the following dose reduction techniques: Automated exposure control, adjustment of the mA and/or kV according to patient size, and/or use of iterative reconstruction technique. FINDINGS: HEMORRHAGE: No intracranial hemorrhage. BRAIN: No mass effect or edema. Mild atrophy and chronic periventricular white matter ischemic disease. VENTRICLES: Unremarkable. No hydrocephalus. CALVARIUM: Left parietal craniotomy. PARANASAL SINUSES: Unremarkable as visualized. No significant inflammatory changes. MASTOID AIR CELLS: Unremarkable as visualized. No inflammatory changes. OTHER FINDINGS: None. IMPRESSION: No acute hemorrhage.
[2018-09-09] MEDS: Aztreonam 1 Gm in NS 100mL 100 ML IVPB SCH ×3 (10:26→21:39)
[2018-09-09] MEDS: Pantoprazole 40 mg EC Tab PO SCH (10:28)
[2018-09-09] MEDS ORDERED: Sodium Chloride 0.9% 1,000 ML IV SCH (10:48)
[2018-09-09 11:18] LABS: HEMOGLOBIN 12.5 g/dL (12.0-16.0); MEAN CELL VOLUME 97.8 fl (80.0-105.0); MEAN CORPUSCULAR HEMOGLOBIN 31.1 pg (25.0-35.0); MEAN CORPUSCULAR HGB CONC 31.8 g/dl (31.0-37.0); MEAN PLATELET VOLUME 9.5 fl (7.0-11.0); RBC 4.02 10^6/uL (3.5-6.1); RED CELL DISTRIBUTION WIDTH 13.1 % (11.5-14.5); WHITE BLOOD COUNT 4.8 10^3/uL (4.5-11.0)
[2018-09-09 11:33] LABS: ALB/GLOB RATIO 1.3 (1.1-1.8); ALBUMIN 3.4 g/dL (3.0-4.8); ALT/SGPT 8 U/L (7-56); AST/SGOT 27 U/L (14-36); BLOOD UREA NITROGEN 18 mg/dL (7-21); CALCIUM 9.6 mg/dL (8.4-10.5); GFR NON-AFRICAN AMERICAN 60
--- NOTE | 2018-09-09 13:29 | CP.PCM.CON ---
<Dean Johnston - Last Filed: 09/09/18 13:31> History of Present Illness - History of Present Illness History of Present Illness: Infectious disease consult note: 83-year-old female with past medical history of renal cell carcinoma status post partial nephrectomy, history of TIA, seizure disorder, coronary artery disease, hypertension, retinal detachment presents following office. Patient was receiving Opdivo treatment when she started feeling very cold, with chills, and uncontrolled rigors. Patient has a history of seizures however this was not reported to be like her usual tremor. Patient at this point was sent to the ED for further workup and treatment. In the ED patient was found to have a lactate of 3.4 and was given Vanco and David for possible sepsis. ID was consulted for rigors. 12 point ROS performed and negative other than stated above. PMH: As above PSH: Partial nephrectomy of the right left kidney, right inguinal hernia, and craniotomy ALL: Penicillin, tetanus and diphtheria SH: Denies any smoking, drinking or drugs FH: Denies Review of Systems - Review of Systems All systems: reviewed and no additional remarkable complaints except Past Patient History - Infectious Disease Hx of Infectious Diseases: None - Tetanus Immunizations Tetanus Immunization: Unknown - Past Medical History & Family History Past Medical History?: Yes - Past Social History Smoking Status: Never Smoked - CARDIAC Hx Cardiac Disorders: Yes Hx Hypertension: Yes - PULMONARY Hx Respiratory Disorders: Yes Hx Chronic Obstructive Pulmonary Disease (COPD): Yes - NEUROLOGICAL Hx Neurological Disorder: Yes Hx Seizures: Yes Hx Transient Ischemic Attacks (TIA): Yes - HEENT Hx HEENT Problems: Yes Hx Cataracts: Yes Other/Comment: HAS H/O RETINAL DETACHEMENT LEFT EYE - RENAL Hx Chronic Kidney Disease: Yes Hx Renal (Kidney) Cancer: Yes - ENDOCRINE/METABOLIC Hx Endocrine Disorders: Yes Hx Diabetes Mellitus Type 2: Yes - HEMATOLOGICAL/ONCOLOGICAL Hx Blood Disorders: Yes Hx Cancer: Yes (renal, skin) Hx Chemotherapy: Yes - INTEGUMENTARY Hx Dermatological Problems: Yes 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) - MUSCULOSKELETAL/RHEUMATOLOGICAL Hx Musculoskeletal Disorders: Yes Hx Falls: Yes Hx Unsteady Gait: Yes - GASTROINTESTINAL Hx Gastrointestinal Disorders: Yes (Small bowel obstruction) Other/Comment: Small bowel obstruction - GENITOURINARY/GYNECOLOGICAL Hx Genitourinary Disorders: No - PSYCHIATRIC Hx Psychophysiologic Disorder: No Hx Depression: No - SURGICAL HISTORY Hx Surgeries: Yes Hx Cardiac Catheterization: Yes Hx Coronary Stent: Yes - ANESTHESIA Hx Anesthesia: Yes Hx Anesthesia Reactions: No Hx Malignant Hyperthermia: No Meds Allergies/Adverse Reactions: Allergies Allergy/AdvReac Type Severity Reaction Status Date / Time Penicillins Allergy RASH Verified 03/21/18 16:45 tetanus and diphtheria Allergy RASH/DIZZY Verified 03/21/18 16:45 toxoids [tetanus & diphtheria toxoids] - Medications Medications: Current Medications Acetaminophen (Tylenol 325mg Tab) 650 mg PO Q4 PRN PRN Reason: Fever >100.4 F Aspirin (Ecotrin) 81 mg PO DAILY [facility] Last Admin: 09/09/18 10:27 Dose: 81 mg Furosemide (Lasix) 40 mg PO DAILY [facility] Last Admin: 09/09/18 10:28 Dose: 40 mg Aztreonam (Azactam 1 Gm) 100 mls @ 100 mls/hr IVPB Q8 [facility]; Protocol Stop: 09/16/18 07:01 Last Admin: 09/09/18 10:26 Dose: 100 mls/hr Sodium Chloride (Sodium Chloride 0.9%) 1,000 mls @ 50 mls/hr IV .Q20H [facility] Lamotrigine (Lamictal) 200 mg PO BID [facility]; Protocol Last Admin: 09/09/18 10:27 Dose: 200 mg Levetiracetam (Keppra) 1,000 mg PO BID [facility] Last Admin: 09/09/18 10:27 Dose: 1,000 mg Losartan Potassium (Cozaar) 100 mg PO DAILY [facility] Last Admin: 09/09/18 10:26 Dose: 100 mg Pantoprazole Sodium (Protonix Ec Tab) 40 mg PO DAILY [facility] Last Admin: 09/09/18 10:28 Dose: 40 mg Psyllium Hydrophilic Mucilloid (Hydrocil Instant) 1 pkt PO DAILY PRN PRN Reason: Constipation Physical Exam - Constitutional Appears: No Acute Distress - Head Exam Head Exam: ATRAUMATIC, NORMOCEPHALIC - Eye Exam Eye Exam: EOMI - ENT Exam ENT Exam: Mucous Membranes Moist - Respiratory Exam Respiratory Exam: Clear to Auscultation Bilateral. absent: Rales, Wheezes - Cardiovascular Exam Cardiovascular Exam: REGULAR RHYTHM, +S1, +S2 - GI/Abdominal Exam GI & Abdominal Exam: Normal Bowel Sounds, Soft. absent: Tenderness - Extremities Exam Extremities exam: Negative for: calf tenderness, pedal edema - Neurological Exam Neurological exam: Alert, CN II-XII Intact, Oriented x3 - Psychiatric Exam Psychiatric exam: Normal Mood - Skin Skin Exam: Dry, Warm Results - Vital Signs Recent Vital Signs: Last Vital Signs Temp 97.4 F L 09/09/18 07:57 Pulse 60 09/09/18 07:57 Resp 20 09/09/18 07:57 BP 138/73 09/09/18 10:28 Pulse Ox 97 09/09/18 07:57 - Labs Result Diagrams: 09/09/18 11:10 09/09/18 11:10 Labs: Laboratory Results - last 24 hr 09/08/18 09/08/18 09/08/18 17:40 17:52 17:52 WBC 3.5 L RBC 4.49 Hgb 13.8 Hct 43.4 MCV 96.7 D MCH 30.7 MCHC 31.8 RDW 13.2 Plt Count 200 MPV 9.8 Neut % (Auto) 85.4 H Lymph % (Auto) 14.3 L [place] % (Auto) 0.3 L Eos % (Auto) 0.0 L Baso % (Auto) 0.0 Lymph # (Auto) 0.5 L [place] # (Auto) 0.0 L Eos # (Auto) 0.0 Baso # (Auto) 0.00 Absolute Neuts (auto) 2.99 PT 11.2 INR 1.01 APTT 32.5 pO2 49 VBG pH 7.34 VBG pCO2 51.0 VBG HCO3 27.5 VBG Total CO2 29.1 H VBG O2 Sat (Calc) 90.0 H VBG Base Excess 0.9 VBG Potassium 4.3 Sodium 143.0 Chloride 108.0 H Glucose 177 H Lactate 3.4 H FiO2 21.0 Crit Value Called To Md muhammad Crit Value Called By Rt Blood Gas Notified Time 1862 Potassium Carbon Dioxide Anion Gap BUN Creatinine Est GFR ( Amer) Est GFR (Non-Af Amer) Random Glucose Calcium Phosphorus Magnesium Total Bilirubin AST ALT Alkaline Phosphatase Troponin I NT-Pro-B Natriuret Pep Total Protein Albumin Globulin Albumin/Globulin Ratio Venous Blood Potassium 4.3 Urine Color Urine Appearance Urine pH Ur Specific [place] Urine Protein Urine Glucose (UA) Urine Ketones Urine Blood Urine Nitrate Urine Bilirubin Urine Urobilinogen Ur Leukocyte Esterase 09/08/18 09/08/18 09/08/18 17:52 21:00 21:10 WBC RBC Hgb Hct MCV MCH MCHC RDW Plt Count MPV Neut % (Auto) Lymph % (Auto) [place] % (Auto) Eos % (Auto) Baso % (Auto) Lymph # (Auto) [place] # (Auto) Eos # (Auto) Baso # (Auto) Absolute Neuts (auto) PT INR APTT pO2 201 H VBG pH 7.36 VBG pCO2 51.0 VBG HCO3 28.8 H VBG Total CO2 30.4 H VBG O2 Sat (Calc) 99.6 H VBG Base Excess 2.4 H VBG Potassium 4.6 Sodium 142 141.0 Chloride 109 H 109.0 H Glucose 135 H Lactate 1.3 FiO2 21.0 Crit Value Called To Crit Value Called By Blood Gas Notified Time Potassium 4.6 Carbon Dioxide 26 Anion Gap 11 BUN 18 Creatinine 0.9 Est GFR ( Amer) > 60 Est GFR (Non-Af Amer) 60 Random Glucose 166 H Calcium 10.3 Phosphorus 3.4 Magnesium 2.0 Total Bilirubin 0.2 AST 29 ALT 23 Alkaline Phosphatase 63 Troponin I < 0.01 NT-Pro-B Natriuret Pep 240 Total Protein 7.2 Albumin 4.2 Globulin 3.0 Albumin/Globulin Ratio 1.4 Venous Blood Potassium 4.6 Urine Color Straw Urine Appearance Clear Urine pH 6.5 Ur Specific [place] 1.015 Urine Protein Negative Urine Glucose (UA) Negative Urine Ketones Negative Urine Blood Negative Urine Nitrate Negative Urine Bilirubin Negative Urine Urobilinogen 0.2 Ur Leukocyte Esterase Negative 09/09/18 09/09/18 09/09/18 05:30 05:30 11:10 WBC 5.0 D 4.8 RBC 4.02 4.02 Hgb 12.4 12.5 Hct 39.0 39.3 MCV 97.0 97.8 MCH 30.8 31.1 MCHC 31.8 31.8 RDW 13.1 13.1 Plt Count 188 181 MPV 9.8 9.5 Neut % (Auto) 65.1 Lymph % (Auto) 28.1 Frontier % (Auto) 6.6 H Eos % (Auto) 0.0 L Baso % (Auto) 0.2 Lymph # (Auto) 1.4 [place] # (Auto) 0.3 Eos # (Auto) 0.0 Baso # (Auto) 0.01 Absolute Neuts (auto) 3.25 PT INR APTT pO2 VBG pH VBG pCO2 VBG HCO3 VBG Total CO2 VBG O2 Sat (Calc) VBG Base Excess VBG Potassium Sodium 143 Chloride 111 H Glucose Lactate FiO2 Crit Value Called To Crit Value Called By Blood Gas Notified Time Potassium 4.8 Carbon Dioxide 31 Anion Gap 6 L BUN 19 Creatinine 1.0 Est GFR ( Amer) > 60 Est GFR (Non-Af Amer) 53 Random Glucose 110 Calcium 9.7 Phosphorus Magnesium Total Bilirubin 0.3 AST 24 ALT 24 Alkaline Phosphatase 57 Troponin I NT-Pro-B Natriuret Pep Total Protein 6.2 Albumin 3.5 Globulin 2.7 Albumin/Globulin Ratio 1.3 Venous Blood Potassium Urine Color Urine Appearance Urine pH Ur Specific [place] Urine Protein Urine Glucose (UA) Urine Ketones Urine Blood Urine Nitrate Urine Bilirubin Urine Urobilinogen Ur Leukocyte Esterase 09/09/18 11:10 WBC RBC Hgb Hct MCV MCH MCHC RDW Plt Count MPV Neut % (Auto) Lymph % (Auto) [place] % (Auto) Eos % (Auto) Baso % (Auto) Lymph # (Auto) [place] # (Auto) Eos # (Auto) Baso # (Auto) Absolute Neuts (auto) PT INR APTT pO2 VBG pH VBG pCO2 VBG HCO3 VBG Total CO2 VBG O2 Sat (Calc) VBG Base Excess VBG Potassium Sodium 144 Chloride 111 H Glucose Lactate FiO2 Crit Value Called To Crit Value Called By Blood Gas Notified Time Potassium 4.2 Carbon Dioxide 29 Anion Gap 8 L BUN 18 Creatinine 0.9 Est GFR ( Amer) > 60 Est GFR (Non-Af Amer) 60 Random Glucose 146 H Calcium 9.6 Phosphorus Magnesium Total Bilirubin 0.2 AST 27 ALT 8 Alkaline Phosphatase 51 Troponin I NT-Pro-B Natriuret Pep Total Protein 6.0 Albumin 3.4 Globulin 2.6 Albumin/Globulin Ratio 1.3 Venous Blood Potassium Urine Color Urine Appearance Urine pH Ur Specific [place] Urine Protein Urine Glucose (UA) Urine Ketones Urine Blood Urine Nitrate Urine Bilirubin Urine Urobilinogen Ur Leukocyte Esterase Assessment & Plan - Assessment and Plan (Free Text) Assessment: 3-year-old female with past medical history of renal cell carcinoma status post partial nephrectomy, history of TIA, seizure disorder, coronary artery disease, hypertension, retinal detachment presents with chills and rigors following opdivo administration. r/o sepsis Continue antibiotics with Vanco and aztreonam Chest x-ray and urinalysis were negative Follow-up septic workup Continue to monitor for any changes Case and plan was reviewed and discussed with Dr. David <Geovanni David - Last Filed: 09/09/18 16:51> Meds - Medications Medications: Current Medications Acetaminophen (Tylenol 325mg Tab) 650 mg PO Q4 PRN PRN Reason: Fever >100.4 F Aspirin (Ecotrin) 81 mg PO DAILY [facility] Last Admin: 09/09/18 10:27 Dose: 81 mg Furosemide (Lasix) 40 mg PO DAILY [facility] Last Admin: 09/09/18 10:28 Dose: 40 mg Aztreonam (Azactam 1 Gm) 100 mls @ 100 mls/hr IVPB Q8 [facility]; Protocol Stop: 09/16/18 07:01 Last Admin: 09/09/18 16:33 Dose: Not Given Sodium Chloride (Sodium Chloride 0.9%) 1,000 mls @ 50 mls/hr IV .Q20H [facility] Lamotrigine (Lamictal) 200 mg PO BID [facility]; Protocol Last Admin: 09/09/18 10:27 Dose: 200 mg Levetiracetam (Keppra) 1,000 mg PO BID [facility] Last Admin: 09/09/18 10:27 Dose: 1,000 mg Losartan Potassium (Cozaar) 100 mg PO DAILY [facility] Last Admin: 09/09/18 10:26 Dose: 100 mg Pantoprazole Sodium (Protonix Ec Tab) 40 mg PO DAILY [facility] Last Admin: 09/09/18 10:28 Dose: 40 mg Psyllium Hydrophilic Mucilloid (Hydrocil Instant) 1 pkt PO DAILY PRN PRN Reason: Constipation Results - Vital Signs Recent Vital Signs: Last Vital Signs Temp 99.1 F 09/09/18 16:40 Pulse 71 09/09/18 16:40 Resp 18 09/09/18 16:40 BP 135/63 09/09/18 16:40 Pulse Ox 97 09/09/18 16:40 - Labs Result Diagrams: 09/09/18 11:10 09/09/18 11:10 Labs: Laboratory Results - last 24 hr 09/08/18 09/08/18 09/08/18 17:40 17:52 17:52 WBC 3.5 L RBC 4.49 Hgb 13.8 Hct 43.4 MCV 96.7 D MCH 30.7 MCHC 31.8 RDW 13.2 Plt Count 200 MPV 9.8 Neut % (Auto) 85.4 H Lymph % (Auto) 14.3 L [place] % (Auto) 0.3 L Eos % (Auto) 0.0 L Baso % (Auto) 0.0 Lymph # (Auto) 0.5 L [place] # (Auto) 0.0 L Eos # (Auto) 0.0 Baso # (Auto) 0.00 Absolute Neuts (auto) 2.99 PT 11.2 INR 1.01 APTT 32.5 pO2 49 VBG pH 7.34 VBG pCO2 51.0 VBG HCO3 27.5 VBG Total CO2 29.1 H VBG O2 Sat (Calc) 90.0 H VBG Base Excess 0.9 VBG Potassium 4.3 Sodium 143.0 Chloride 108.0 H Glucose 177 H Lactate 3.4 H FiO2 21.0 Crit Value Called To Md muhammad Crit Value Called By Rt Blood Gas Notified Time 1749 Potassium Carbon Dioxide Anion Gap BUN Creatinine Est GFR ( Amer) Est GFR (Non-Af Amer) Random Glucose Calcium Phosphorus Magnesium Total Bilirubin AST ALT Alkaline Phosphatase Troponin I NT-Pro-B Natriuret Pep Total Protein Albumin Globulin Albumin/Globulin Ratio Venous Blood Potassium 4.3 Urine Color Urine Appearance Urine pH Ur Specific [place] Urine Protein Urine Glucose (UA) Urine Ketones Urine Blood Urine Nitrate Urine Bilirubin Urine Urobilinogen Ur Leukocyte Esterase 09/08/18 09/08/18 09/08/18 17:52 21:00 21:10 WBC RBC Hgb Hct MCV MCH MCHC RDW Plt Count MPV Neut % (Auto) Lymph % (Auto) [place] % (Auto) Eos % (Auto) Baso % (Auto) Lymph # (Auto) [place] # (Auto) Eos # (Auto) Baso # (Auto) Absolute Neuts (auto) PT INR APTT pO2 201 H VBG pH 7.36 VBG pCO2 51.0 VBG HCO3 28.8 H VBG Total CO2 30.4 H VBG O2 Sat (Calc) 99.6 H VBG Base Excess 2.4 H VBG Potassium 4.6 Sodium 142 141.0 Chloride 109 H 109.0 H Glucose 135 H Lactate 1.3 FiO2 21.0 Crit Value Called To Crit Value Called By Blood Gas Notified Time Potassium 4.6 Carbon Dioxide 26 Anion Gap 11 BUN 18 Creatinine 0.9 Est GFR ( Amer) > 60 Est GFR (Non-Af Amer) 60 Random Glucose 166 H Calcium 10.3 Phosphorus 3.4 Magnesium 2.0 Total Bilirubin 0.2 AST 29 ALT 23 Alkaline Phosphatase 63 Troponin I < 0.01 NT-Pro-B Natriuret Pep 240 Total Protein 7.2 Albumin 4.2 Globulin 3.0 Albumin/Globulin Ratio 1.4 Venous Blood Potassium 4.6 Urine Color Straw Urine Appearance Clear Urine pH 6.5 Ur Specific [place] 1.015 Urine Protein Negative Urine Glucose (UA) Negative Urine Ketones Negative Urine Blood Negative Urine Nitrate Negative Urine Bilirubin Negative Urine Urobilinogen 0.2 Ur Leukocyte Esterase Negative 09/09/18 09/09/18 09/09/18 05:30 05:30 11:10 WBC 5.0 D 4.8 RBC 4.02 4.02 Hgb 12.4 12.5 Hct 39.0 39.3 MCV 97.0 97.8 MCH 30.8 31.1 MCHC 31.8 31.8 RDW 13.1 13.1 Plt Count 188 181 MPV 9.8 9.5 Neut % (Auto) 65.1 Lymph % (Auto) 28.1 [place] % (Auto) 6.6 H Eos % (Auto) 0.0 L Baso % (Auto) 0.2 Lymph # (Auto) 1.4 [place] # (Auto) 0.3 Eos # (Auto) 0.0 Baso # (Auto) 0.01 Absolute Neuts (auto) 3.25 PT INR APTT pO2 VBG pH VBG pCO2 VBG HCO3 VBG Total CO2 VBG O2 Sat (Calc) VBG Base Excess VBG Potassium Sodium 143 Chloride 111 H Glucose Lactate FiO2 Crit Value Called To Crit Value Called By Blood Gas Notified Time Potassium 4.8 Carbon Dioxide 31 Anion Gap 6 L BUN 19 Creatinine 1.0 Est GFR ( Amer) > 60 Est GFR (Non-Af Amer) 53 Random Glucose 110 Calcium 9.7 Phosphorus Magnesium Total Bilirubin 0.3 AST 24 ALT 24 Alkaline Phosphatase 57 Troponin I NT-Pro-B Natriuret Pep Total Protein 6.2 Albumin 3.5 Globulin 2.7 Albumin/Globulin Ratio 1.3 Venous Blood Potassium Urine Color Urine Appearance Urine pH Ur Specific [place] Urine Protein Urine Glucose (UA) Urine Ketones Urine Blood Urine Nitrate Urine Bilirubin Urine Urobilinogen Ur Leukocyte Esterase 09/09/18 11:10 WBC RBC Hgb Hct MCV MCH MCHC RDW Plt Count MPV Neut % (Auto) Lymph % (Auto) [place] % (Auto) Eos % (Auto) Baso % (Auto) Lymph # (Auto) [place] # (Auto) Eos # (Auto) Baso # (Auto) Absolute Neuts (auto) PT INR APTT pO2 VBG pH VBG pCO2 VBG HCO3 VBG Total CO2 VBG O2 Sat (Calc) VBG Base Excess VBG Potassium Sodium 144 Chloride 111 H Glucose Lactate FiO2 Crit Value Called To Crit Value Called By Blood Gas Notified Time Potassium 4.2 Carbon Dioxide 29 Anion Gap 8 L BUN 18 Creatinine 0.9 Est GFR ( Amer) > 60 Est GFR (Non-Af Amer) 60 Random Glucose 146 H Calcium 9.6 Phosphorus Magnesium Total Bilirubin 0.2 AST 27 ALT 8 Alkaline Phosphatase 51 Troponin I NT-Pro-B Natriuret Pep Total Protein 6.0 Albumin 3.4 Globulin 2.6 Albumin/Globulin Ratio 1.3 Venous Blood Potassium Urine Color Urine Appearance Urine pH Ur Specific [place] Urine Protein Urine Glucose (UA) Urine Ketones Urine Blood Urine Nitrate Urine Bilirubin Urine Urobilinogen Ur Leukocyte Esterase Assessment & Plan - Assessment and Plan (Free Text) Assessment: Infectious diseases Attending Physician Attestation Patient seen and examined, discussed with medical insurance claims processor. I have reviewed the patient's history of present illness, past medical, social, personal and family histories, pertinent physical exam findings, course so far in this hospital admission, pertinent laboratory and imaging results. I agree with the above fi ndings, assessment and plan. In addition, started Vancomycin and Aztreonam for patient with possible rigors, R/O bacteremia from port infection. Follow up blood cx and will monitor clinically.
--- NOTE | 2018-09-09 15:27 | CP.PCM.APN ---
Subjective - Date & Time of Evaluation Date of Evaluation: 09/09/18 Time of Evaluation: 10:00 - Subjective Subjective: Pt. seen and examined. Resting comfortabley in bed, no tremors noted. No complaints offered. Review of Systems - Constitutional Constitutional: As Per HPI - EENT Eyes: absent: As Per HPI, Blind Spots, Blurred Vision, Change in Vision, Decreased Night Vision, Diplopia, Discharge, Dry Eye, Exophthalmos, Floaters, Irritation, Itchy Eyes, Loss of Peripheral Vision, Pain, Photophobia, Requires Corrective Lenses, Sees Flashes, Spots in Vision, Tunnel Vision, Other Visual Disturbances, Loss of Vision, Other Ears: absent: As Per HPI, Decreased Hearing, Ear Discharge, Ear Pain, Tinnitus, Abnormal Hearing, Disequilibrium, Dizziness, Other Nose/Mouth/Throat: absent: As Per HPI, Epistaxis, Nasal Congestion, Nasal Discharge, Nasal Obstruction, Nasal Trauma, Nose Pain, Post Nasal Drip, Sinus Pain, Sinus Pressure, Bleeding Gums, Change in Voice, Dental Pain, Dry Mouth, Dysphagia, Halitosis, Hoarsness, Lip Swelling, Mouth Lesions, Mouth Pain, Odynophagia, Sore Throat, Throat Swelling, Tongue Swelling, Facial Pain, Neck Pain, Neck Mass, Other - Cardiovascular Cardiovascular: absent: As Per HPI, Acrocyanosis, Chest Pain, Chest Pain at Rest, Chest Pain with Activity, Claudication, Diaphoresis, Dyspnea, Dyspnea on Exertion, Edema, Irregular Heart Rhythm, Pain Radiating to Arm/Neck/Jaw, Leg Edema, Leg Ulcers, Lightheadedness, Orthopnea, Palpitations, Paroxysmal Nocturnal Dyspnea, Pedal Edema, Radiating Pain, Rapid Heart Rate, Slow Heart Ra te, Syncope, Other - Respiratory Respiratory: absent: As Per HPI, Cough, Dyspnea, Hemoptysis, Dyspnea on Exertion, Wheezing, Snoring, Stridor, Pain on Inspiration, Chest Congestion, Excessive Mucous Production, Change in Mucous Color, Pain with Coughing, Other - Reproductive: Female Reproductive:Female: absent: As Per HPI, Amenorrhea, Amenorrhea/ Control, Currently Menstual, Cycle <21 Days, Cycle >35 Days, Cycle Variable, Menses 1-7 Days, Menses >/= 8 Days, Menses Variable, Cycle > 4 Weeks Between, No Menses for 6 Months, Heavy Menses, Light Menses, Normal Menses, Spotting Between Cycles, S/P Hysterectomy, Menopausal, Post Menopausal, Premenarche, Abnormal Vaginal Bleeding, Dysmenorrhea, Dyspareunia, Genital Lesions, Genital Pruritis, Pelvic Pain, Prolapse Symptoms, Sexual Dysfunction, Vaginal Discharge, Vaginal Dryness, Vaginal Odor, Vaginal Pruritis, Other - Menstruation Menstruation: absent: As Per HPI, Amenorrhea, Amenorrhea/ Control, Currently Menstual, Cycle <21 Days, Cycle >35 Days, Cycle Variable, Menses 1-7 Days, Menses >/= 8 Days, Menses Variable, Cycle > 4 Weeks Between, No Menses for 6 Months, Heavy Menses, Light Menses, Normal Menses, Spotting Between Cycles, S/P Hysterectomy, Menopausal, Post Menopausal, Premenarche, Abnormal Vaginal Bleeding, Dysmenorrhea, Other - Integumentary Integumentary: absent: As Per HPI, Acne, Alopecia, Bleeding Lesions, Change in Hair, Change in Nails, Change in Pigmentation, Changing Lesions, Dry Skin, Erythema, Furuncle, Hirsutism, Lesions, New Lesions, Non-Healing Lesions, Photosensitivity, Pruritus, Rash, Skin Pain, Skin Ulcer, Sores, Striae, Swelling, Unusual Bruising, Wounds, Jaundice, Other - Neurological Neurological: absent: As Per HPI, Abnormal Gait, Abnormal Hearing, Abnormal Movements, Abnormal Speech, Behavioral Changes, Burning Sensations, Confusion, Convulsions, Disequilibrium, Dizziness, Numbness, Focal Weakness, Frequent Falls, Headaches, Lack of Coordination, Loss of Vision, Memory Loss, Paresthesias, Radicular Pain, Restless Legs, Sensory Deficit, Syncope, Tingling, Tremor, Vertigo, Weakness, Other Visual Disturbances, Other - Psychiatric Psychiatric: absent: As Per HPI, Abnormal Sleep Pattern, Anhedonia, Anxiety, Auditory Hallucinations, Behavioral Changes, Change in Appetite, Change in Libido, Confusion, Depression, Difficulty Concentrating, Hallucinations, Homicidal Ideation, Hopelessness, Irritability, Memory Loss, Mood Swings, Panic Attacks, Paranoia, Suicidal Ideation, Visual Hallucinations, Tactile Hallucinations, Other - Endocrine Endocrine: absent: As Per HPI, Change in Body Appearance, Change in Libido, Cold Intolorance, Deepening of Voice, Excessive Sweating, Fatigue, Flushing, Heat Intolorance, Increase in Ring/Shoe/Hat Size, Palpitations, Polydipsia, Polyphagia, Polyuria, Other - Hematologic/Lymphatic Hematologic: absent: As Per HPI, Easy Bleeding, Easy Bruising, Lymphadenopathy, Other Objective - Vital Signs/Intake and Output Vital Signs (last 24 hours): Temp Pulse Resp BP Pulse Ox 97.4 F L 60 20 138/73 97 09/09/18 07:57 09/09/18 07:57 09/09/18 07:57 09/09/18 10:28 09/09/18 07:57 Intake and Output: 09/09/18 09/09/18 06:59 18:59 Intake Total 600 Balance 600 - Medications Medications: Current Medications Acetaminophen (Tylenol 325mg Tab) 650 mg PO Q4 PRN PRN Reason: Fever >100.4 F Aspirin (Ecotrin) 81 mg PO DAILY [facility] Last Admin: 09/09/18 10:27 Dose: 81 mg Furosemide (Lasix) 40 mg PO DAILY [facility] Last Admin: 09/09/18 10:28 Dose: 40 mg Aztreonam (Azactam 1 Gm) 100 mls @ 100 mls/hr IVPB Q8 [facility]; Protocol Stop: 09/16/18 07:01 Last Admin: 09/09/18 10:26 Dose: 100 mls/hr Sodium Chloride (Sodium Chloride 0.9%) 1,000 mls @ 50 mls/hr IV .Q20H [facility] Lamotrigine (Lamictal) 200 mg PO BID [facility]; Protocol Last Admin: 09/09/18 10:27 Dose: 200 mg Levetiracetam (Keppra) 1,000 mg PO BID [facility] Last Admin: 09/09/18 10:27 Dose: 1,000 mg Losartan Potassium (Cozaar) 100 mg PO DAILY [facility] Last Admin: 09/09/18 10:26 Dose: 100 mg Pantoprazole Sodium (Protonix Ec Tab) 40 mg PO DAILY [facility] Last Admin: 09/09/18 10:28 Dose: 40 mg Psyllium Hydrophilic Mucilloid (Hydrocil Instant) 1 pkt PO DAILY PRN PRN Reason: Constipation - Labs Labs: 09/09/18 11:10 09/09/18 11:10 PT 11.2 SECONDS (9.4-12.5) 09/08/18 17:52 INR 1.01 09/08/18 17:52 APTT 32.5 Seconds (26.9-38.3) 09/08/18 17:52 - Constitutional Appears: Well, Non-toxic - Head Exam Head Exam: NORMOCEPHALIC - Eye Exam Eye Exam: absent: Conjunctival injection, EOMI, Normal appearance, Nystagmus, Periorbital swelling, Periorbital tenderness, PERRL, Scleral icterus - Neck Exam Neck Exam: Full ROM - Respiratory Exam Respiratory Exam: NORMAL BREATHING PATTERN - Cardiovascular Exam Cardiovascular Exam: REGULAR RHYTHM - GI/Abdominal Exam GI & Abdominal Exam: Soft, Normal Bowel Sounds - Rectal Exam Rectal Exam: Deferred - Skin Skin Exam: Dry, Intact, Normal Color, Warm Assessment and Plan - Assessment and Plan (Free Text) Assessment: ITS Impressions Chest X-Ray 09/08/18 16:53 IMPRESSION: No active pulmonary disease. Interval progression in size of pleural base mass left perla thorax. Head CT 09/08/18 17:17 IMPRESSION: No acute hemorrhage. 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 Lambert for evaluation of worsening tremors ,and altered mental status, for further evaluation and treatment. Plan: 1. Tremors- -Secondary to underlying infectious process, with work up pending. -Antibix as per I.D. awaiting culture results and trend wbc,cbc 2. Hx Seizures, - Gsiel Keppra 3. Pleural mass to left hemithorax base, with increased size Pt. with hx renal cell CA with mets, rec as per oncology PT eval pending. Will continue to monitor clinical status and follow closely.
--- NOTE | 2018-09-09 17:48 | PN ---
DATE: 09/09/2018 This is [facility] visit on the medical floor. For Dr. Linares. SUBJECTIVE: The patient is an 83-year-old frail female, sitting up in bed with her son at the bedside reporting that she still feels cold, but the rigors and chills have abated. The patient is known to have an elevated lactate level with repeat improved after done. Testing is still pending with antibiotics being given intravenously with good effect. The patient suffers from renal cell carcinoma with metastasis and is status post treatment with Opdivo as per Dr. Linares's protocol yesterday. With this, she reports that her appetite is better and she is in no acute distress. OBJECTIVE/PHYSICAL EXAMINATION GENERAL: She appears frail, speaking in whispers. VITAL SIGNS: Temperature 97.4, pulse 60, respirations 20, blood pressure 138/72, pulse ox 97%. HEENT: Unremarkable. NECK: Supple. HEART: Tachy rate. LUNGS: Minimal decreased breath sounds in the left. ABDOMEN: Soft. EXTREMITIES: No edema. SKIN: Warm and dry. NEUROLOGIC: Awake and alert. LABORATORY DATA: The patient labs were done. White blood cell count 4.8, hemoglobin 12.5, hematocrit 39.3, platelet count 181,000. Metabolic panel within normal range. INR 1.0 with a lactate level yesterday of 3.4 with repeat later on that evening of 1.3. Troponin less than 0.01. Procalcitonin level is pending. Urinalysis negative for blood sugar, protein. Blood culture specimen and urine culture specimens are also pending. ASSESSMENT: The assessment for this patient is that of rigors rule out sepsis in a debilitated patient suffering from renal cell carcinoma, on chemotherapy with immune system with now metastasis lytic lesions, status post craniotomy, history of transient ischemic attack, chronic obstructive pulmonary disease, hypertension, seizure disorder, peripheral neuropathy, retinal detachment, atherosclerotic cardiovascular disease with stenting. PLAN: Plan for this patient is to continue with present medical regimen with Infectious Disease consult appreciated with antibiotics continuing in the form of Azactam with IV fluids cut back as the patient's appetite is improved. This is a complex patient with a comprehensive medically necessary and appropriate visit carried out in excess of 25 minutes with the patient's and her son's questions answered to their satisfaction. Juan Lambert MD
[2018-09-10] MEDS: Aztreonam 1 Gm in NS 100mL 100 ML IVPB SCH (05:43)
[2018-09-10 08:07] VITALS: BP 159/97; PULSE 64; RESP 20; TEMP 97.5; O2SAT 94
[2018-09-10 08:10] LABS: BASO # 0.01 K/mm3 (0.0-2.0); BASO % 0.2 % (0.0-3.0); HEMOGLOBIN 12.6 g/dL (12.0-16.0); LYMPH # 2.2 (1.2-3.4); LYMPH % 41.2 % (22.0-35.0); MEAN CELL VOLUME 96.9 fl (80.0-105.0); MEAN CORPUSCULAR HEMOGLOBIN 30.4 pg (25.0-35.0); MEAN CORPUSCULAR HGB CONC 31.4 g/dl (31.0-37.0); MEAN PLATELET VOLUME 9.9 fl (7.0-11.0); MONO # 0.3 (0.1-0.6); MONO % 6.5 % (1.0-6.0); RBC 4.14 10^6/uL (3.5-6.1); RED CELL DISTRIBUTION WIDTH 13.1 % (11.5-14.5); WHITE BLOOD COUNT 5.3 10^3/uL (4.5-11.0)
[2018-09-10 08:42] LABS: ALB/GLOB RATIO 1.3 (1.1-1.8); ALBUMIN 3.4 g/dL (3.0-4.8); ALT/SGPT 27 U/L (7-56); AST/SGOT 24 U/L (14-36); BLOOD UREA NITROGEN 25 mg/dL (7-21); CALCIUM 10.2 mg/dL (8.4-10.5); GFR NON-AFRICAN AMERICAN 53
[2018-09-10] MEDS: Pantoprazole 40 mg EC Tab PO SCH (09:04)
--- NOTE | 2018-09-10 16:33 | CP.PCM.PN ---
Subjective - Date & Time of Evaluation Date of Evaluation: 09/10/18 Time of Evaluation: 10:15 - Subjective Subjective: Comfortable in bed, no more shaking, no fevers, not in distress. Objective - Vital Signs/Intake and Output Vital Signs (last 24 hours): Temp Pulse Resp BP Pulse Ox 97.5 F L 64 20 159/97 H 94 L 09/10/18 06:00 09/10/18 06:00 09/10/18 06:00 09/10/18 09:04 09/10/18 06:00 Intake and Output: 09/10/18 09/10/18 06:59 18:59 Intake Total 1420 Output Total 1500 Balance -80 - Medications Medications: Current Medications Acetaminophen (Tylenol 325mg Tab) 650 mg PO Q4 PRN PRN Reason: Fever >100.4 F Aspirin (Ecotrin) 81 mg PO DAILY [facility] Last Admin: 09/10/18 09:04 Dose: 81 mg Furosemide (Lasix) 40 mg PO DAILY [facility] Last Admin: 09/10/18 09:04 Dose: 40 mg Aztreonam (Azactam 1 Gm) 100 mls @ 100 mls/hr IVPB Q8 [facility]; Protocol Stop: 09/16/18 07:01 Last Admin: 09/10/18 05:43 Dose: 100 mls/hr Sodium Chloride (Sodium Chloride 0.9%) 1,000 mls @ 50 mls/hr IV .Q20H [facility] Last Admin: 09/09/18 17:29 Dose: 50 mls/hr Lamotrigine (Lamictal) 200 mg PO BID [facility]; Protocol Last Admin: 09/10/18 09:04 Dose: 200 mg Levetiracetam (Keppra) 1,000 mg PO BID [facility] Last Admin: 09/10/18 09:04 Dose: 1,000 mg Losartan Potassium (Cozaar) 100 mg PO DAILY [facility] Last Admin: 09/10/18 09:04 Dose: 100 mg Pantoprazole Sodium (Protonix Ec Tab) 40 mg PO DAILY [facility] Last Admin: 09/10/18 09:04 Dose: 40 mg Psyllium Hydrophilic Mucilloid (Hydrocil Instant) 1 pkt PO DAILY PRN PRN Reason: Constipation - Labs Labs: 09/10/18 08:05 09/10/18 07:51 PT 11.2 SECONDS (9.4-12.5) 09/08/18 17:52 INR 1.01 09/08/18 17:52 APTT 32.5 Seconds (26.9-38.3) 09/08/18 17:52 - Constitutional Appears: Chronically Ill - Head Exam Head Exam: NORMAL INSPECTION - Respiratory Exam Respiratory Exam: Decreased Breath Sounds - Cardiovascular Exam Cardiovascular Exam: +S1, +S2 - GI/Abdominal Exam GI & Abdominal Exam: Soft. absent: Tenderness Assessment and Plan - Assessment and Plan (Free Text) Plan: Assessment chills with SIRS, R/O bacterial infection, R/O transient bacteremia - no lucie teria identified in cultures renal cell carcinoma S/P partial nephrectomy seizure disorder CAD HTN history of retinal detachment Plan on Vancomycin and Aztreonam; cultures have been negative; as discussed with Dr. Lambert we can continue patient on Levaquin and Doxycycline for another 5 days with outpatient follow up with Dr. Linares
--- NOTE | 2018-09-10 18:58 | DS ---
DATE OF VISIT: 09/10/2018 This is Brandie Nguyen's discharge summary. For Dr. Linares. SUBJECTIVE: The patient is an 83-year-old female seen sitting up in the chair with her son at the bedside, reporting that she feels better after being admitted for rigors, after treatment with Opdivo and access to a peripheral IV while in Dr. Linares's office 3 days prior. She was started on antibiotics immediately as per Infectious Disease store consultant Dr. David with good affect, with lab findings now reviewed. As the patient significantly improved, we will discharge home today on oral antibiotics. It should be noted in previous documentation that the patient had rigors, not tremor. The patient is known to have a chronic tremor with this not an issue on her original admission and subsequent treatment. OBJECTIVE/PHYSICAL EXAMINATION GENERAL: She appears frail. VITAL SIGNS: Temperature 97.5, pulse 64, respirations 20, blood pressure 159/97, pulse ox 94%. HEENT: Unremarkable. NECK: Supple. HEART: Regular rate. Occasional ectopic beat. LUNGS: Minimal decreased breath sounds bilateral. ABDOMEN: Soft, nontender. EXTREMITIES: No edema. SKIN: Warm and dry. NEUROLOGIC: Awake and alert. LABORATORY DATA: The patient's labs were done. White blood cell count of 5.3, hemoglobin of 12.6, hematocrit of 40.1, platelet count of 192,000 with a metabolic panel showing a BUN 25 with normal creatinine 1.0. Her procalcitonin was returned as less than 0.05. Her blood culture was no growth after 24 hours. Urine culture no growth, gram-stain pending. ASSESSMENT: For this patient set up systemic inflammatory response syndrome, transient bacteremia treated expectedly with good affect. Renal cell carcinoma with metastasis lytic lesions, status post craniotomy, history of transient ischemic attack, seizure disorder, chronic obstructive pulmonary disease, hypertension, peripheral neuropathy, history of retinal detachment, atherosclerotic cardiovascular disease with stenting. PLAN: For this patient after conversation with Infectious Disease store consultant Dr. David, we will discharge the patient home today on Levaquin 500 mg daily for 5 weeks additional days, also doxycycline 100 mg twice a day for 5 additional days as the patient does have ALLERGY TO PENICILLIN with continuation of other present medical regimen. We will also recommend the patient to follow up with Dr. Linares within 5 days in the office or earlier p.r.n. This is a complex patient with a comprehensive medically necessary and appropriate visit carried out in excess of 25 minutes with the patient's medicines reviewed with nursing staff and the patient's son and prescription written as indicated. Juan Lambert MD
== END 2018-09-10 14:11 | disposition home or self-care (01) | DRG 872 ==
LOC: ED 16:36 → ERH 18:44 → 3RNO 22:58
PROVIDERS: ADMIT Family Medicine; ATTEND Family Medicine
DX: R78.81 Bacteremia (principal); R65.10 Systemic inflammatory response syndrome (SIRS) of non-infectious origin without acute organ dysfunction; C79.31 Secondary malignant neoplasm of brain; G40.909 Epilepsy, unspecified, not intractable, without status epilepticus; I25.10 Atherosclerotic heart disease of native coronary artery without angina pectoris; E78.5 Hyperlipidemia, unspecified; J44.9 Chronic obstructive pulmonary disease, unspecified; M81.0 Age-related osteoporosis without current pathological fracture; E11.42 Type 2 diabetes mellitus with diabetic polyneuropathy; I10 Essential (primary) hypertension; Z85.528 Personal history of other malignant neoplasm of kidney; Z90.5 Acquired absence of kidney; Z86.73 Personal history of transient ischemic attack (TIA), and cerebral infarction without residual deficits; Z95.5 Presence of coronary angioplasty implant and graft; Z85.828 Personal history of other malignant neoplasm of skin; Z88.0 Allergy status to penicillin

== ENCOUNTER 2018-09-21 13:02 | Outpatient (CLI) | payer MEDICARE | END 2018-09-21 13:03 | disposition home or self-care (01) | LOC: OPLAB 13:02 | DX: D64.9 Anemia, unspecified (principal) ==

== ENCOUNTER 2018-09-28 12:05 | Outpatient (CLI) | payer MEDICARE | END 2018-09-28 12:06 | disposition home or self-care (01) | LOC: OPLAB 12:05 ==

== ENCOUNTER 2018-10-06 12:08 | Inpatient (IN) | payer MEDICARE ==
[2018-10-06 12:23] VITALS: BMI 24.1
[2018-10-06] MEDS ORDERED: Sodium Chloride 0.9% 1,000 ML IV SCH ×2 (12:45→18:45)
[2018-10-06 12:56] LABS: BASO # 0.02 K/mm3 (0.0-2.0); BASO % 0.4 % (0.0-3.0); HEMOGLOBIN 13.5 g/dL (12.0-16.0); LYMPH # 1.4 (1.2-3.4); MEAN CELL VOLUME 95.7 fl (80.0-105.0); MEAN CORPUSCULAR HEMOGLOBIN 30.8 pg (25.0-35.0); MEAN CORPUSCULAR HGB CONC 32.2 g/dl (31.0-37.0); MEAN PLATELET VOLUME 9.3 fl (7.0-11.0); MONO # 0.4 (0.1-0.6); RBC 4.38 10^6/uL (3.5-6.1); RED CELL DISTRIBUTION WIDTH 13.6 % (11.5-14.5); WHITE BLOOD COUNT 5.3 10^3/uL (4.5-11.0)
[2018-10-06 13:04] LABS: INR 0.93; PARTIAL THROMBOPLASTIN TIME 27.1 Seconds (26.9-38.3); PROTHROMBIN TIME 10.5 SECONDS (9.4-12.5)
[2018-10-06 13:14] LABS: ALB/GLOB RATIO 1.6 (1.1-1.8); ALBUMIN 4.1 g/dL (3.0-4.8); ALT/SGPT 14 U/L (7-56); AST/SGOT 26 U/L (14-36); BLOOD UREA NITROGEN 20 mg/dL (7-21); CALCIUM 9.9 mg/dL (8.4-10.5); GFR NON-AFRICAN AMERICAN 60; HDL CHOLESTEROL 75 mg/dL (29-60)
[2018-10-06 13:16] LABS: LDL CHOLESTEROL 67 mg/dL (0-129)
--- NOTE | 2018-10-06 13:18 | CT ---
Date of service: 10/06/2018 PROCEDURE: CT HEAD WITHOUT CONTRAST. HISTORY: Code Stroke COMPARISON: Unenhanced head CT 09/08/2018. TECHNIQUE: Axial computed tomography images were obtained through the head/brain without intravenous contrast. Radiation dose: Total exam DLP = 872.53 mGy-cm. This CT exam was performed using one or more of the following dose reduction techniques: Automated exposure control, adjustment of the mA and/or kV according to patient size, and/or use of iterative reconstruction technique. FINDINGS: Prior left parietal craniotomy reiterated. No intracranial hemorrhage or mass effect identified. Stable diffuse cerebral atrophy chronic microangiopathy are identified which are age-appropriate. No definite cortical edema or change in pattern of apparent microangiopathy bilaterally in the cerebrum. Posterior fossa contents unremarkable PARANASAL SINUSES: Unremarkable as visualized. No significant inflammatory changes. MASTOID AIR CELLS: Unremarkable as visualized. No inflammatory changes. OTHER FINDINGS: None. IMPRESSION: No definite interval acute intracranial findings. Stable left parietal craniotomy site and age related neuro degenerative findings. Findings discussed with Dr. Bal with written down and read back verification 10/06/2018 1:08 p.m..
[2018-10-06 13:19] LABS: TROPONIN I < 0.01 ng/mL
--- NOTE | 2018-10-06 13:40 | RAD ---
Date of service: 10/06/2018 HISTORY: Code Stroke COMPARISON: 09/08/2018 FINDINGS: LUNGS: No active pulmonary disease. PLEURA: There is a pleural base mass in the left upper lobe measuring 51 x 34 mm. No significant change in size CARDIOVASCULAR: No aortic atherosclerotic calcification present. Normal cardiac size. No pulmonary vascular congestion. OSSEOUS STRUCTURES: No significant abnormalities. VISUALIZED UPPER ABDOMEN: Normal. OTHER FINDINGS: None. IMPRESSION: No active disease. Pleural base mass left upper lobe
--- NOTE | 2018-10-06 13:54 | ED PDOC ---
Arrival/HPI - General Chief Complaint: Weakness/Neurological Deficit Time Seen by Provider: 10/06/18 12:24 Historian: Patient, Family (Son at bedside helped provide information) - History of Present Illness Narrative History of Present Illness (Text): 10/06/18 12:30 83 F with PMHx of L renal cancer (resected w/o chemo/radiation Rx) with brain and nasal skin metastasis, LBBB, coronary artery disease, diverticulitis, COPD, hypertension, hyperlipidemia, TIA, and Seizures, presents accompanied with son with cc of numbness/tingling that began between 18:00 and 19:00 last night. As per PMD, left sided weakness started 2 days ago. Son states the left side of the patient's face has been drooping more than usual. Son states patient's doctor did not like how she was looking so he sent her to the emergency department for further evaluation. Son notes patient was started on Methylprednisolone recently. Son states patient's gait is off, more than usual. Son at bedside notes patient "cannot really talk loudly." Patient notes leg weakness and left-sided weakness of face. Pt denies any other complaints at this time. PMD: Dawit Holman Neurologist: Dr. Montenegro Time/Duration: Other (Son notes numbness/tingling began on left side yesterday between 18:00 and 19:00 ) Symptom Onset: Sudden Symptom Course: Unchanged Activities at Onset: Light Past Medical History - Provider Review Nursing Documentation Reviewed: Yes - Infectious Disease Hx of Infectious Diseases: None - Tetanus Immunization Tetanus Immunization: Unknown - Cardiac Hx Cardiac Disorders: Yes - Pulmonary Hx Chronic Obstructive Pulmonary Disease (COPD): Yes - Neurological Hx Seizures: Yes (LAST SEIZURE APR 2015) Hx Transient Ischemic Attacks (TIA): Yes - HEENT Hx HEENT Disorder: Yes Hx Cataracts: Yes Other/Comment: HAS H/O RETINAL DETACHEMENT LEFT EYE - Renal Hx Renal Disorder: Yes Hx Renal Cancer: Yes - Endocrine/Metabolic Hx Endocrine Disorders: No - Hematological/Oncological Hx Cancer: Yes (renal, skin) - Integumentary Hx Dermatological Disorder: Yes 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) - Musculoskeletal/Rheumatological Hx Musculoskeletal Disorders: Yes Hx Falls: No Hx Unsteady Gait: Yes - Gastrointestinal Hx Gastrointestinal Disorders: Yes (Small bowel obstruction) Other/Comment: Small bowel obstruction - Genitourinary/Gynecological Hx Genitourinary Disorders: No - Psychiatric Hx Depression: No Hx Substance Use: No - Surgical History Hx Cardiac Catheterization: Yes - Anesthesia Hx Anesthesia: Yes Hx Anesthesia Reactions: No Hx Malignant Hyperthermia: No - Suicidal Assessment Feels Threatened In Home Enviroment: No Family/Social History - Physician Review Nursing Documentation Reviewed: Yes Family/Social History: No Known Family HX Smoking Status: Former Smoker Hx Alcohol Use: No Hx Substance Use: No Hx Substance Use Treatment: No Allergies/Home Meds Allergies/Adverse Reactions: Allergies Penicillins Allergy (Verified 03/21/18 16:45) RASH tetanus and diphtheria toxoids [tetanus & diphtheria toxoids] Allergy (Verified 03/21/18 16:45) RASH/DIZZY Home Medications: Home Meds Medication Instructions Recorded Confirmed Atorvastatin [Lipitor] 20 mg PO HS 10/03/15 10/06/18 Losartan [Cozaar] 100 mg PO DAILY 10/03/15 10/06/18 Omeprazole 40 mg PO DAILY 10/03/15 10/06/18 Multivitamin with Iron [Daily [place] 1 tab PO DAILY 10/31/17 10/06/18 with Iron] Cholecalciferol (Vitamin D3) 1 cap PO DAILY 10/06/18 10/06/18 [Vitamin D3] Primidone [Mysoline] 0.5 tab PO DAILY 10/06/18 10/06/18 Terazosin [Hytrin] 1 tab PO DAILY 10/06/18 10/06/18 Review of Systems - Physician Review All systems were reviewed & negative as marked: Yes (All other systems negative except that noted in the HPI.) Physical Exam - Physical Exam Narrative Physical Exam (Text): Gen: VS reviewed, alert, well developed, well nourished, nontoxic, mild distres s. Slight facial droop on left lower face. Diminished sensation in left lower face. Eye: EOMI, PERRL Neck: no JVD, supple, no adenopathy CV: regular rate, regular rhythm, no rubs,no murmur, S1, S2 Pulm: no distress, clear to auscultation, no wheeze, no rhonchi, breath sounds equal, no rales Abd: soft, nontender, no guarding, no rebound, no rigidity Ext: no edema Skin: good color, no cyanosis Psych: responds appropriately to questions, normal affect Neuro: oriented x3, CN2-12 intact grossly, motor intact, sensation intact Vital Signs Reviewed: Yes Vital Signs Temp Pulse Resp BP Pulse Ox 10/06/18 13:30 72 18 154/86 H 96 10/06/18 12:28 98.2 F 75 18 156/91 H 95 Temperature: Afebrile Blood Pressure: Hypertensive Pulse: Regular Respiratory Rate: Normal Appearance: Positive for: Well-Appearing, Non-Toxic Pain Distress: None Mental Status: Positive for: Alert and Oriented X 3 Finger Stick Blood Glucose: 91 Medical Decision Making ED Course and Treatment: 10/06/18 12:30 Impression: 83 year old female who presents accompanied with son with cc of numbness/tingli ng that began between 18:00 and 19:00 last night. Plan: -- Labs -- CT of head -- EKG -- X-Ray of chest -- IV fluids -- Reassess and disposition Prior Visits: Notes and results from previous visits were reviewed. Patient was last seen in the emergency department on 09/08/18 for evaluation of worsening tremors since prior to arrival. Patient was hospitalized in fair condition. Progress Notes: 10/06/18 13:[address] santana to his service. patient to be admitted for left facial numbness with worsening facial droop. patient has a hx of metastatic cancer and seizure disorder. ddx including but not limited to seizure, cva. patient is not a candidate for thrombolysis. consult neurology to dr. carey. 10/06/18 14:[address] carey, neurology, will see patient in consult and would like a MRI brain - Lab Interpretations Lab Results: PT 10.5 SECONDS (9.4-12.5) 10/06/18 12:40 INR 0.93 10/06/18 12:40 APTT 27.1 Seconds (26.9-38.3) 10/06/18 12:40 Troponin I < 0.01 ng/mL 10/06/18 12:40 Total Bilirubin 0.3 mg/dL (0.2-1.3) 10/06/18 12:40 AST 26 U/L (14-36) 10/06/18 12:40 ALT 14 U/L (7-56) 10/06/18 12:40 Alkaline Phosphatase 59 U/L (38-126) 10/06/18 12:40 Total Protein 6.7 g/dL (5.8-8.3) 10/06/18 12:40 Albumin 4.1 g/dL (3.0-4.8) 10/06/18 12:40 Globulin 2.6 gm/dL 10/06/18 12:40 Albumin/Globulin Ratio 1.6 (1.1-1.8) 10/06/18 12:40 - RAD Interpretation Narrative RAD Interpretations (Text): CT of head reviewed by radiologist, shows: Dictated By: Lux Plasencia Dictated Date/Time: 10/06/18 13:14 Impression: No definite interval acute intracranial findings. Stable left parietal craniotomy site and age related neuro degenerative findings. X-ray of chest reviewed by radiologist, shows: Dictated By: Lux Plasencia Dictated Date/Time: 10/06/18 13:36 Impression: No active disease. Pleural base mass left upper lobe. Radiology Orders: 10/06/18 12:36 HEAD W/O (CODE STROKE) [CT] Stat CHEST PORTABLE [RAD] Stat Hr Associate: Radiologist - EKG Interpretation EKG Interpretation (Text): 10/06/18 15:03 12:38ekg my read:sinus rhythm at 82 bpm, 1st degree av block, lbbb, findings unchanged from prior ekg in [facility] records Interpreted by ED Physician: Yes - Medication Orders Current Medication Orders: Sodium Chloride (Sodium Chloride 0.9%) 1,000 mls @ 100 mls/hr IV .Q10H ERIKA Last Admin: 10/06/18 13:07 Dose: 100 mls/hr eMAR Start Stop Document 10/06/18 13:07 GMD (Rec: 10/06/18 13:07 GMD [id number]) Intravenous Solution Start Date 10/06/18 Start Time 13:07 NIHSS Scale ([place]) Time Performed: 13:54 - How Severe is the Stoke Baseline Level of Consciousness: 0=Alert LOC to Questions: 0=Both comments correct LOC to commands: 0=Obeys both correctly Best Gaze: 0=Normal Visual: 0=No visual loss Facial: 1=Minor asymmetry Motor Arm - Left: 0=No drift Motor Arm - Right: 0=No drift Motor Leg - Left: 0=No drift Motor Leg - Right: 0=No drift Limb Ataxia: 0=Absent Sensory: 1=Mild to moderate loss Best Language: 0=No aphasia Dysarthia: 0=Normal articulation Extinction & Inattention (Neglect): 0=Normal, no object (mild loss of sensation left lower face and very mild left lower facial droop) Score: 2 Risk Level: Minor Stroke Risk rTPA Inclusion/Exclusion - Refusal of Treatment Patient Refused Treatment: No - Inclusion Criteria for Altepase Patient is 18 years or Older: Yes The Clinical Diagnosis of Ischemic Stroke That is Causing a Potentially Disabling Neurological Deficit: Yes Time of Onset is Well Established to be Less Than 270 Minute Before Treatment Would Begin: No Risk/Benefit Discussed With Patient/Family Member Present: Yes - Warning to TPA With Conditions Condition: Stroke Serevity Too Mild - Scribe Statement The provider has reviewed the documentation as recorded by the Scribe Ada Lee All medical record entries made by the Scribe were at my direction and personally dictated by me. I have reviewed the chart and agree that the record accurately reflects my personal performance of the history, physical exam, medical decision making, and the department course for this patient. I have also personally directed, reviewed, and agree with the discharge instructions and disposition. Disposition/Present on Arrival - Present on Arrival Any Indicators Present on Arrival: No History of DVT/PE: No History of Uncontrolled Diabetes: No Urinary Catheter: No History of Decub. Ulcer: No History Surgical Site Infection Following: None - Disposition Have Diagnosis and Disposition been Completed?: Yes Diagnosis: CVA (cerebral vascular accident) Disposition: HOSPITALIZED Disposition Time: 13:54 Patient Plan: Admission Patient Problems: Current Active Problems Problem Status Onset CVA (cerebral vascular accident) Acute Condition: STABLE Referrals: Dawit Hernandez MD [Primary Care Provider] - Follow up with primary Forms: [employer] ([place])
--- NOTE | 2018-10-06 16:10 | CARD ---
APPROVED REPORT Date of service: 10/06/2018 EKG Measurement Heart [id number] <Conclusion> Sinus rhythm with 1st degree AV block with occasional premature ventricular complexes Left axis deviation Left bundle branch block Abnormal ECG
--- NOTE | 2018-10-06 22:29 | HP ---
DATE OF EXAM: 10/06/2018 This is Brandie Nguyen's admission history and physical to the Telemetry Floor. For Dr. Linares. CHIEF COMPLAINT: Weakness, tingling and numbness; left arm, leg and face. HISTORY OF PRESENT ILLNESS: The patient is an 83-year-old female seen in Dr. Linares's office earlier today with her son in attendance after being treated with Opdivo in the recent past with total body rash being treated with Medrol Dosepak tapering doses with good effect; however, the son now reports the patient with numbness and tingling to the left of her arms and legs and weakness in left side of her face of approximately one day's time with hoarseness of the voice and dizziness. The patient suffers from seizure disorder, is status post craniotomy in 05/2017, with cranioplasty with past history also significant for stage IV renal cell carcinoma. At present, she is now admitted to the telemetry floor for CVA rule out CVA protocol with further testing pending, appeared frail with gait disturbance, unable to ambulate without maximal assist with her son at the bedside. Denying any pain at this time. ALLERGIES: INCLUDE PENICILLIN, TETANUS TOXOID AND DIPHTHERIA TOXOID. MEDICATIONS: Include Lasix 40 mg once a day, iron tablet, losartan 100 mg once a day, omeprazole 40 mg once a day, vitamin D, aspirin 81 mg, Lamictal 200 mg twice a day, Keppra 500 mg two in the a.m. and two in the p.m., Virt-Phos 250 mg once a day, Lipitor 200 mg once a day, Hytrin 2 mg at bedtime, Mysoline 25 mg at bedtime. She also receives Opdivo, which is now on hold, every 2 weeks with Aredia for bone loss every 4 weeks. 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 Garcia, the neurosurgeon with cranioplasty. Mesh was then removed in 07/2017. History of glomerulosclerosis, osteoporosis, stenting for ASCVD, hypertension, right inguinal hernia repair, questionable Alzheimer disease, and detachment of the left retina. 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 One son due to lung and brain cancer, 55 years old. One son alive and well at the bedside. REVIEW OF SYSTEMS: A 12-point review of system was done which was negative to questioning except for items mentioned in the history of present of illness. OBJECTIVE/PHYSICAL EXAMINATION: VITAL SIGNS: Temperature 97.2, pulse 89, respirations 20, blood pressure 124/78 and pulse ox of 96%. HEENT: Decreased vision left eye due to history of retinal detachment with left facial minimal droop. Tongue dry. NECK: Supple. HEART: Tachy rate, regular rhythm, occasional ectopic beats. LUNGS: Minimal decreased breath sounds at the bases. ABDOMEN: Soft and nontender. EXTREMITIES: No edema. SKIN: Warm and dry. NEUROLOGIC: Awake and alert with significant hoarseness of her voice. She speaks in a whisper with decreased strength left arm and left lower extremity. LABORATORY DATA: The patient's labs were done. White blood cell count 5.3, hemoglobin 13.5, hematocrit 41.9 and platelet count of 207,000 with metabolic panel within normal range. INR of 0.93. The patient did have a chest x-ray done earlier today, it was read as no active disease, pleural base mass left upper lobe. EKG was done earlier today, it was read as sinus rhythm, first-degree A-V block with PVC, left axis deviation, left bundle branch block; abnormal EKG. CT scan of her head was done earlier today, it was read as no definite interval acute intracranial findings, stable left parietal craniotomy site, and age related neurodegenerative findings. ASSESSMENT: For this patient is that of left-sided weakness rule out cerebrovascular accident, rule out transient ischemic attack, stage IV renal cell carcinoma, atherosclerotic cardiovascular disease with stenting, history of transient ischemic attack and seizure disorder status post craniotomy, hypertension, osteoporosis, questionable Alzheimer disease, history of left retinal detachment, and hyperlipidemia. PLAN: For this patient is to continue present medical regimen. As above, we will ask for consult with Dr. Naranjo of Neurology with an MRI of the brain ordered. We will monitor clinically with labs with physiotherapy for the patient's severe gait disturbance and with further recommendations as indicated. This is a complex patient with a comprehensive medically necessary and appropriate visit carried out in excess of 90 minutes with the patient brought to the emergency room by wheelchair by carol annelf from Dr. Linares's office with conversation held with the emergency room doctor, with Dr. Naranjo and also with patient's family members as above. Juan Lambert MD
[2018-10-06] MEDS ORDERED: Influenza Vaccine 60 mcg/0.5 mL SYR (4YR UP) IM ONE (22:57)
[2018-10-07] MEDS: TERAZOSIN 2 MG PO SCH ×2 (01:25→22:45)
[2018-10-07] MEDS: Pantoprazole 40 mg EC Tab PO SCH (06:01)
[2018-10-07 07:26] LABS: BASO # 0.02 K/mm3 (0.0-2.0); BASO % 0.5 % (0.0-3.0); HEMOGLOBIN 11.8 g/dL (12.0-16.0); LYMPH # 1.9 (1.2-3.4); LYMPH % 46.1 % (22.0-35.0); MEAN CORPUSCULAR HEMOGLOBIN 29.6 pg (25.0-35.0); MEAN CORPUSCULAR HGB CONC 30.8 g/dl (31.0-37.0); MEAN PLATELET VOLUME 9.5 fl (7.0-11.0); MONO # 0.4 (0.1-0.6); MONO % 10.1 % (1.0-6.0); RBC 3.99 10^6/uL (3.5-6.1); RED CELL DISTRIBUTION WIDTH 13.6 % (11.5-14.5); WHITE BLOOD COUNT 4.1 10^3/uL (4.5-11.0)
[2018-10-07 07:52] LABS: ALB/GLOB RATIO 1.3 (1.1-1.8); ALBUMIN 3.3 g/dL (3.0-4.8); ALT/SGPT 13 U/L (7-56); AST/SGOT 27 U/L (14-36); BLOOD UREA NITROGEN 18 mg/dL (7-21); CALCIUM 9.4 mg/dL (8.4-10.5); GFR NON-AFRICAN AMERICAN 60
--- NOTE | 2018-10-07 08:15 | CON ---
DATE: 10/06/2018 HISTORY OF PRESENT ILLNESS: This is an 83-year-old white female with past medical history of renal cell carcinoma and partial nephrectomy, status post history of seizure, and TIA, coronary artery disease, hypertension, retinal detachment, presents to Dr. Linares's office with the complain of numbness on the left side and of the face and the leg and no weakness, so was sent to the emergency room, called to evaluate the patient. CAT scan of the head was done which was reported negative. Symptoms are still persisting, son at bedside. PAST SURGICAL HISTORY: Partial nephrectomy. REVIEW OF SYSTEMS: Ten-point review of systems was negative. PHYSICAL EXAMINATION HEENT: Normocephalic, atraumatic. NECK: Supple. NEUROLOGIC: Awake, oriented to self and place. Cranial nerves II to XII was tested. Pupils reactive. EOM intact. Visual field full. No facial asymmetry. Tongue midline. Motor examination, moves all the extremities equally. Tone normal. Deep tendon reflexes 1+. Both plantars downgoing. Sensory appears intact. Cerebellar gait deferred. IMPRESSION: More of transient ischemic attack versus neuropathy and CAT scan of the head is fine. Continue present management. Will follow up. Physical therapy for ambulation. Lionel Naranjo MD
--- NOTE | 2018-10-07 11:25 | MRI ---
Date of service: 10/07/2018 PROCEDURE: MRI BRAIN WITHOUT CONTRAST HISTORY: CVA COMPARISON: 09/02/2018 TECHNIQUE: Multiplanar, multisequence MR images of the brain were obtained without intravenous contrast enhancement. FINDINGS: HEMORRHAGE: None DWI: No evidence of an acute or early subacute infarction. BRAIN PARENCHYMA: No mass effect or edema. Severe chronic microvascular changes are seen in the periventricular white matter. VENTRICLES: Unremarkable. No hydrocephalus. CRANIUM: Unremarkable. ORBITS: Grossly unremarkable. PARANASAL SINUSES/MASTOIDS: Clear VASCULAR SYSTEM: Skull base flow voids intact. OTHER FINDINGS: None. IMPRESSION: No acute intracranial findings
--- NOTE | 2018-10-07 12:58 | CP.PCM.PCO ---
Assessment & Plan - Assessment and Plan (Free Text) Assessment: NEURO COMMUNICATION NOTE:. TRANSIENT PARASTHESIAS MRI BRAIN SHOWED NO ACUTE ABNORMALITY. RECOMMEND C.W SEIZURE MEDS LISTED. YONG HAN
--- NOTE | 2018-10-07 15:14 | PN ---
DATE: 10/07/2018 This is [facility] visit on the telemetry floor. For Dr. Linares. SUBJECTIVE: The patient is an 83-year-old female seen lying awake in bed, son at the bedside, now having her lunch. No further episodes of weakness or droop of her face since admission with the patient having had an MRI of her brain done with report as negative. However, upon ambulation, the patient was noted to have significant drop in her oxygen saturation with desaturation on ambulation for which we will have an evaluation with the fabric normalizer Dr. Mcneil. Otherwise, we are continuing monitoring the patient, who is in no acute distress at this visit. However, she has lost her voice again and speaks in a whisper. PHYSICAL EXAMINATION: VITAL SIGNS: Temperature 97.1, pulse 74, respirations 19, blood pressure 163/85, and pulse ox 93%. HEENT: Unremarkable, no droop appreciated. NECK: Supple. HEART: Regular rate, occasional ectopic beat. LUNGS: Minimal decreased breath sounds at the bases. ABDOMEN: Soft. EXTREMITIES: No edema. SKIN: Warm and dry. NEUROLOGIC: Awake and alert with decreased voice. 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 LABORATORY DATA: The patient's labs were done. White blood cell count 4.1, hemoglobin 11.8, hematocrit of 38.3, platelet count of 194,000 with a metabolic panel within normal limits. INR is 0.9. The patient did have an MRI of her brain done earlier today, was read as no acute intracranial findings. ASSESSMENT: Assessment for this patient is that of transient ischemic attack/early cerebrovascular accident with transient paresthesias in a patient with known stage IV renal cell carcinoma with cardiovascular disease with stenting, history of transient ischemic attack, seizure disorder, history of craniotomy, hypertension, osteoporosis, left retinal detachment, hyperlipidemia, and new desaturation of oxygen on ambulation. PLAN: Plan for this patient is, ask for consult with Dr. Mcneil, who will monitor clinically with the patient participating in physiotherapy bonnie. This is a complex patient with a comprehensive medically necessary and appropriate visit carried out in excess of 25 minutes with the patient's son at the bedside with his questions answered to his satisfaction. Juan Lambert MD [facility] # [id number]
--- NOTE | 2018-10-07 19:12 | CON ---
DATE: 10/07/2018 PULMONARY CONSULTATION REFERRING PHYSICIAN: Dr. Lambert. REASON FOR CONSULTATION: Metastatic renal cell carcinoma to the lung, cough, shortness of breath. HISTORY OF PRESENT ILLNESS: This is an 83-year-old female, known to have a renal cell carcinoma, probably metastatic disease to left upper lobe, chronic lung disease, seasonal allergies, seizure disorder, admitted with recurrent TIAs, also has a history of , hypertension, who is admitted with recurrent TIAs, also complaining of rhinitis, stuffy nose, cough, and shortness of breath. No chest pain, no nausea, no vomiting, no diarrhea, no leg swelling. PAST MEDICAL HISTORY: As per history of present illness. ALLERGIES: ALLERGIC TO PENICILLIN, TETANUS TOXOID, DIPHTHERIA TOXOID. SOCIAL HISTORY: Stopped smoking many years ago. FAMILY HISTORY: No significant cardiopulmonary disease reported. MEDICATIONS: She is on Cozaar 100 mg daily, Ecotrin 81 mg daily, Keppra 500 mg twice a day, lamotrigine 200 mg twice a day, Lasix 40 mg daily, Lipitor 20 mg daily. She is on Medrol 4 mg daily, primidone 25 mg at bedtime, Protonix 40 mg daily, Tylenol p.r.n. basis. REVIEW OF SYSTEMS: Complaining of some rhinitis, stuffy nose, and cough. No chest pain, no nausea, no vomiting, no diarrhea, no leg pain or leg swelling, has a near syncopal episode. PHYSICAL EXAMINATION: GENERAL: In no acute distress. VITAL SIGNS: Temperature is 98, heart rate 74, respiratory rate is 20, blood pressure 163/85, pulse of 93% on 2 L nasal cannula. HEENT: Moist mucous membrane. Crowded airway. NECK: Supple. No JVD. LUNGS: Have scattered rhonchi, prolonged expiratory phase. HEART: S1 and S2. ABDOMEN: Soft, nontender, no organomegaly. EXTREMITIES: No edema. NEUROLOGIC: Awake, alert, follows simple commands. LABORATORY DATA: Shows hemoglobin 11.8, hematocrit 38.3, WBC 4.1, platelets is 194. INR 0.93, PTT 27. Sodium 139, potassium 2.8, chloride 104, bicarbonate 31, BUN 18, creatinine 0.9, glucose is 81, calcium is 9.4, total bilirubin 0.3, AST 27, ALT 13, alk phos is 52, albumin is 3.3. Had a chest x-ray done, which shows left upper lobe mass. MRI of the brain is unremarkable for any new finding. IMPRESSION AND PLAN: Metastatic renal cell carcinoma, history of nephrectomy, she has been on chemotherapy, chronic lung disease, history of chronic rhinosinusitis, recurrent transient ischemic attacks, coronary artery disease, seizure disorder, history of craniotomy in the past, hyperlipidemia. Case discussed with the patient's son at bedside. All the questions answered. Being followed by Neurology. MRI was unremarkable of the head. to each nostril twice a day, nasal saline every 2 hours p.r.n., Singulair 10 mg at bedtime, also may add antihistamine. We will add inhaled bronchodilator, supplemental oxygen, pulse ox less than 90%. Gastric and deep venous thrombosis prophylaxis. We will recommend PFT upon discharge as outpatient. Mario Mcneil MD
[2018-10-07] MEDS: Albuterol-Ipratrop 3 mg / 0.5 (3 ml) UD IH SCH (20:38)
[2018-10-08] MEDS: Albuterol-Ipratrop 3 mg / 0.5 (3 ml) UD IH SCH ×5 (00:54→20:40)
[2018-10-08] MEDS: Pantoprazole 40 mg EC Tab PO SCH (06:20)
[2018-10-08 07:32] LABS: BASO # 0.01 K/mm3 (0.0-2.0); BASO % 0.2 % (0.0-3.0); HEMOGLOBIN 12.5 g/dL (12.0-16.0); LYMPH # 1.7 (1.2-3.4); LYMPH % 36.2 % (22.0-35.0); MEAN CELL VOLUME 95.9 fl (80.0-105.0); MEAN CORPUSCULAR HGB CONC 31.3 g/dl (31.0-37.0); MEAN PLATELET VOLUME 9.3 fl (7.0-11.0); MONO # 0.6 (0.1-0.6); MONO % 11.7 % (1.0-6.0); RBC 4.17 10^6/uL (3.5-6.1); RED CELL DISTRIBUTION WIDTH 13.5 % (11.5-14.5); WHITE BLOOD COUNT 4.7 10^3/uL (4.5-11.0)
[2018-10-08 07:51] LABS: ALB/GLOB RATIO 1.4 (1.1-1.8); ALBUMIN 3.6 g/dL (3.0-4.8); ALT/SGPT 7 U/L (7-56); AST/SGOT 25 U/L (14-36); BLOOD UREA NITROGEN 20 mg/dL (7-21); CALCIUM 9.9 mg/dL (8.4-10.5); GFR NON-AFRICAN AMERICAN 53
--- NOTE | 2018-10-08 19:39 | PN ---
DATE: 10/08/2018 DAILY PULMONARY PROGRESS NOTE REFERRING PHYSICIAN: Dr. Lambert. SUBJECTIVE: The patient is sitting up in a chair, feels better. Decreased cough and shortness of breath. No nausea, vomiting, diarrhea, leg pain, or leg swelling. OBJECTIVE/PHYSICAL EXAMINATION VITAL SIGNS: Presently temperature is 98, heart rate is 69, respiratory rate is 18, blood pressure 120/71, pulse ox of 94% on 3 liters nasal cannula. HEENT: Moist mucous membrane. Crowded airway. NECK: Supple. No JVD. CARDIOPULMONARY: Heart is S1. S2. LUNGS: Have prolonged expiratory phase with few rhonchi. ABDOMEN: Soft, nontender. No organomegaly. EXTREMITIES: No edema. NEUROLOGIC: Awake, alert, follows simple command. LABORATORY DATA: Shows hemoglobin 12.5, hematocrit 40.0, WBC 4.7, platelet is 194. Sodium 139, potassium 4.2, chloride 101, bicarbonate 34, BUN 20, creatinine 1.0, glucose 87, calcium is 9.9. AST 25, ALT 7, alk phos is 55. Albumin is 3.6, procalcitonin less than 0.05. MEDICATIONS: She is on Claritin 10 mg daily, Cozaar 100 mg daily, DuoNeb every 6 hours [id number], Ecotrin 81 mg daily, Keppra 1000 mg twice a day, Lamictal is 200 mg every 12 hours, Lasix 40 mg daily, Lipitor 20 mg daily, , prednisolone 4 mg daily, primidone 25 mg at bedtime, Protonix 40 mg daily, Singulair 10 mg daily, Tylenol p.r.n. basis. IMPRESSION AND PLAN: Metastatic renal cell carcinoma, history of nephrectomy secondary to renal cell carcinoma, been on chemotherapy in the past, chronic lung disease, rhinosinusitis, recurring transient ischemic attacks, coronary artery disease, seizure disorder, history of craniotomy in the past, hyperlipidemia. Pulmonary point of view, doing well. Continue bronchodilator, keep at 45 degrees. Antibiotics. Gastric prophylaxis, DVT prophylaxis. Fall precaution. I spoke to the patient's son at bedside. All the questions answered. We will check pulse ox before discharge next day or so to decide if he needs supplement oxygen. We will follow with you. Mario Mcneil MD [facility] # [id number]
[2018-10-08] MEDS: TERAZOSIN 2 MG PO SCH (22:40)
--- NOTE | 2018-10-09 02:17 | PN ---
DATE: 10/08/2018 ONCOLOGY PROGRESS NOTE LOCATION: Room 262, bed 1. SUBJECTIVE: The patient is sitting up in the chair, feeling better. Decreased cough and shortness of breath. The rash that she had on her arms along with itching appears to be better. No nausea, vomiting, diarrhea, leg pain or leg swelling. The changes that she had consistent with facial droop on the left side appears to be improved. The patient apparently had a TIA from which she appears to be fully recovered. PHYSICAL EXAMINATION: VITAL SIGNS: Stable. T-max 98.4, heart rate is 69, respirations 18, blood pressure 120/71, pulse oximetry is 94% on 3 L of nasal oxygen. HEENT: Head is normocephalic and atraumatic. Conjunctivae pale. Sclerae is anicteric. Pupils are equal and reactive to light and accommodation. CARDIOVASCULAR SYSTEM: Reveals S1, S2 to be normal. No gallop or murmur is heard. LUNGS: Have prolonged expiratory phase with few rhonchi. ABDOMEN: Soft. Nontender. No rebound, rigidity or guarding is noted. EXTREMITIES: Reveals no cyanosis, clubbing or edema. NEUROLOGIC: The patient is awake, alert, and oriented and she feels back to where she was. LABORATORY DATA: Reveals a hemoglobin of 12.8, hematocrit 40, white count is 4.7, platelet count 194,000. Sodium is 139, K is 4.2, chloride 101, bicarbonate 34, BUN 20, creatinine 1, glucose 87, calcium 9.9, AST is 25, ALT is 7, alkaline phosphatase 55, albumin is 3.6, procalcitonin is less than 0.05. MEDICATIONS: Reviewed. She is on Claritin 10 mg daily, Cozaar 100 mg daily, DuoNeb every 6 hours [id number], Ecotrin 81 mg daily, Keppra 1000 mg twice daily, Lamictal 200 mg twice daily, Lasix 40 mg daily, Lipitor 20 mg daily, Medrol 4 mg daily, prednisolone 25 mg at bedtime, Protonix 40 mg daily, Singulair 10 mg daily, Tylenol p.r.n. ASSESSMENT, NOTES, AND PLAN: The patient has metastatic renal cell carcinoma, history of nephrectomy with secondary metastasis to the bone, status post resection of a brain lesion, also metastatic. The patient is on immunotherapy with Keytruda, developed rash and itching related to , history of chronic lung disease, rhinosinusitis, recurrent transient ischemic attack, coronary artery disease, seizure disorder, history of craniotomy, hyperlipidemia. The patient appeared to be clinically stable at this time, has had no other neurologic events. The patient in a breathing point of view has improved. The patient is on gastric and deep venous thrombosis prophylaxis and fall precautions. I have spoken in detail to the patient's son. If the patient continues to do well, our plan is to discharge her tomorrow. Question will be they are going to accept if she will need on oxygen therapy in the future. I will also check with neurology if any additional medicines need to be given to the patient in addition to the aspirin that she is already on. Routine post exam instructions have been given to the patient. Please make a note, this is a complex patient with multiple comorbid medical issues. Time spent with the patient greater than 45 minutes. Daniela Linares MD
[2018-10-09] MEDS: Albuterol-Ipratrop 3 mg / 0.5 (3 ml) UD IH SCH ×3 (02:30→13:19)
[2018-10-09] MEDS: Pantoprazole 40 mg EC Tab PO SCH (05:40)
[2018-10-09] MEDS: TERAZOSIN 2 MG PO SCH (22:16)
[2018-10-10 00:16] VITALS: RESP 19; O2SAT 95
--- NOTE | 2018-10-10 00:22 | PN ---
DATE: 10/09/2018 REFERRING PHYSICIAN: Juan Lambert MD SUBJECTIVE: She is lying in the bed, son is at bedside. Night was unremarkable. Feels okay. Desaturated down to 87% at room air, 93% pulse ox on nasal cannula 3 liters at rest, on walking drops down to 90%. Cough is better. No chest pain. No nausea, vomiting, or diarrhea. No leg pain or leg swelling. OBJECTIVE: GENERAL: No acute distress. VITAL SIGNS: Temperature is 98, heart rate is 73, respiratory rate is 18, blood pressure 129/76, pulse ox 96% on nasal cannula. HEENT: Moist mucous membranes. Crowded airway. NECK: Supple. No JVD. LUNGS: Few scattered rhonchi, prolonged expiratory phase. HEART: S1, S2. ABDOMEN: Soft, nontender. No organomegaly. EXTREMITIES: No edema. NEUROLOGIC: Awake, alert, follows simple commands. MEDICATIONS: She is on Claritin 10 mg daily, Cozaar 100 mg daily, DuoNeb every 6 hours [id number], Ecotrin 81 mg daily, Keppra 1000 mg twice a day, Lamictal 200 mg twice a day, Lasix 40 mg daily, Lipitor 20 mg daily, metoprolol mg daily, primidone 25 mg at bedtime, Protonix 5 mg daily, Singulair 10 mg daily, Tylenol p.r.n. basis. LABORATORY DATA: No new labs available since yesterday. IMPRESSION AND PLAN: Metastatic renal cell carcinoma, history of nephrectomy, history of metastatic disease to the lung, been on chemotherapy and radiation therapy, chronic lung disease, rhinosinusitis, status post transient ischemic attack, seizure disorder, coronary artery disease, history of craniotomy in the past. Case discussed with nursing staff, also spoke to the patient's son at bedside. Case discussed with Dr. Linares. The patient can go home on supplemental oxygen 3 liters nasal cannula, needs pulmonary followup as outpatient, gastric prophylaxis, deep vein thrombosis prophylaxis. Thank you and we will follow with you. Mario Mcneil MD
[2018-10-10] MEDS: Albuterol-Ipratrop 3 mg / 0.5 (3 ml) UD IH SCH ×2 (02:22→09:08)
[2018-10-10] MEDS: Pantoprazole 40 mg EC Tab PO SCH (05:49)
[2018-10-10 06:55] LABS: BASO # 0.02 K/mm3 (0.0-2.0); BASO % 0.4 % (0.0-3.0); EOS % 0.2 % (1.5-5.0); HEMOGLOBIN 12.4 g/dL (12.0-16.0); LYMPH # 1.8 (1.2-3.4); LYMPH % 35.5 % (22.0-35.0); MEAN CELL VOLUME 97.3 fl (80.0-105.0); MEAN CORPUSCULAR HEMOGLOBIN 29.9 pg (25.0-35.0); MEAN CORPUSCULAR HGB CONC 30.7 g/dl (31.0-37.0); MEAN PLATELET VOLUME 9.5 fl (7.0-11.0); MONO # 0.5 (0.1-0.6); RBC 4.15 10^6/uL (3.5-6.1); RED CELL DISTRIBUTION WIDTH 13.6 % (11.5-14.5)
[2018-10-10 07:48] LABS: ALB/GLOB RATIO 1.3 (1.1-1.8); ALBUMIN 3.7 g/dL (3.0-4.8); CALCIUM 10.6 mg/dL (8.4-10.5)
--- NOTE | 2018-10-10 08:45 | PN ---
DATE: 10/09/2018 ONCOLOGY PROGRESS NOTE LOCATION: The patient is in room 262, bed 1. PROBLEM: This is an 83-year-old female with documented progressive metastatic renal cell carcinoma, status post resection of the primary tumor after the resection of the met which the patient has presented in the left occipitoparietal region. The patient then went on to develop bone metastasis when she had rib fracture. Based on these findings, the patient was offered systemic therapy with immunotherapy with Opdivo. The patient has been on those treatments now at least for four months. The patient more recently developed significant side effects on the immunotherapy with rash and itching for which she was put on steroids. Recently, she was admitted after being evaluated in the office with new onset of left-sided facial droop and what was thought to be involving TIA versus stroke. The patient since admission has been feeling better. CAT scan and MRI failed to show any acute events. The patient was continued on aspirin, and she was kept on antiseizure medicines consisting of two antiseizure medicines she is on at this point in time which include Lamictal and Keppra. Subjectively, the patient is seen sitting out of bed in the chair. Son is at the bedside. The patient reports decreased cough and shortness of breath. Pulse ox still remains around 87% on room air. She is still on oxygen but otherwise the patient has been feeling better. The rash has gone. The itching is also significantly improved. Denies any history of nausea, vomiting, diarrhea, leg pain, or leg swelling. The left facial droop also appears to be improved. PHYSICAL EXAMINATION: GENERAL: The patient is awake, alert, and oriented, in no acute distress. VITAL SIGNS: Stable as stated in the chart. HEENT: Head is normocephalic and atraumatic. Conjunctivae are pale. Sclerae are icteric. Pupils are equally reactive to light and accommodation. Examination of the oropharynx reveals no oropharyngeal lesions. NECK: Supple. There is no adenopathy. No jugular venous distention noted. LUNGS: Clear to percussion and auscultation with scattered wheezes. The patient does have any accessory muscles use at this time. CARDIOVASCULAR SYSTEM: Reveals S1 and S2 to be normal. No gallop or murmur is heard. ABDOMEN: Soft and nontender. No rebound, rigidity, or guarding is noted. EXTREMITIES: Reveal no cyanosis, clubbing, or edema. NEUROLOGIC: Reveals higher functions to be normal. The patient is in no acute distress. LABORATORY DATA: Lab data were reviewed. Lab data from yesterday reveals hemoglobin 12.8, hematocrit 40, white count is 4.7, platelet count 194,000. Electrolytes are stable. Procalcitonin is less than 0.05. MEDICATIONS: The patient's medications are reviewed. They are unchanged. Continues on Claritin 10 mg daily, Cozaar 100 mg daily, DuoNeb every 6 hours, Ecotrin 81 mg daily, Keppra 1000 mg twice a day, Lamictal 200 mg twice daily, Lasix 40 mg daily, Lipitor 20 mg daily, Medrol 4 mg daily, Protonix 40 mg daily, Singulair 10 mg daily. ASSESSMENT, NOTES, AND PLAN: The patient is breathing better. I spoke to Dr. Mcneil along with her son who witnessed my discussion with him. Plan is that since the patient still is relatively hypoxemic on room air, she will benefit from continuous nasal oxygen at two liters per minute at home based on the current assessment of the patient. We will try to set up for home oxygen therapy and then discharge the patient home. Plan for continuing , I discussed in detail with the patient and the son. The patient stays with her son and since they are living in [place], the plan would be need to also make sure they establish a contact with the local primary doctor as well as she continues her oncologic care with us. The patient is currently stable at this time with no other neurologic events. She is on gastric and deep vein thrombosis prophylaxis. If things go well, our plan is to let the patient get discharged for home with homemaker services and home oxygen therapy in which time to continue her systemic therapy with immunotherapy Opdivo in about 10 days. Routine post-exam instructions have been given to the patient. I spoke to the son in great details as well. Time spent with the patient at least 45 minutes. Please make a note, this is a complex patient with multiple comorbid medical issues. Daniela Linares MD
--- NOTE | 2018-10-10 14:29 | CP.PCM.APN ---
Subjective - Date & Time of Evaluation Date of Evaluation: 10/10/18 Time of Evaluation: 09:15 - Subjective Subjective: pt seen and examined at bedside with son present, pt aware of need for home o2 due to copd and desaturation. pt in NAD. [address] Review of Systems - Review of Systems All systems: reviewed and no additional remarkable complaints except - Respiratory Respiratory: Dyspnea on Exertion Objective - Vital Signs/Intake and Output Vital Signs (last 24 hours): Temp Pulse Resp BP Pulse Ox 98.0 F 71 19 134/78 95 10/10/18 06:00 10/10/18 06:00 10/10/18 06:00 10/10/18 10:10 10/10/18 06:00 Intake and Output: 10/10/18 10/10/18 06:59 18:59 Intake Total 1680 Balance 1680 - Medications Medications: Current Medications Acetaminophen (Tylenol 325mg Tab) 650 mg PO Q6H PRN PRN Reason: Pain, Mild (1-3) Albuterol/Ipratropium (Duoneb 3 Mg/0.5 Mg (3 Ml) Ud) 3 ml IH [id number] [facility] Last Admin: 10/10/18 09:08 Dose: 3 ml Aspirin (Ecotrin) 81 mg PO DAILY [facility] Last Admin: 10/10/18 10:11 Dose: 81 mg Atorvastatin Calcium (Lipitor) 20 mg PO DIN [facility] Last Admin: 10/09/18 17:55 Dose: 20 mg Fluticasone Propionate (Flonase) 1 actuation NS HS [facility] Furosemide (Lasix) 40 mg PO DAILY [facility] Last Admin: 10/10/18 10:10 Dose: 40 mg Home Med (Home Med) 1 unit PO HS [facility] Last Admin: 10/09/18 22:16 Dose: Not Given Lamotrigine (Lamictal) 200 mg PO Q12 [facility]; Protocol Last Admin: 10/10/18 10:17 Dose: 200 mg Levetiracetam (Keppra) 1,000 mg PO Q12 [facility] Last Admin: 10/10/18 10:16 Dose: 1,000 mg Loratadine (Claritin) 10 mg PO DAILY [facility] Last Admin: 10/10/18 10:10 Dose: 10 mg Losartan Potassium (Cozaar) 100 mg PO DAILY [facility] Last Admin: 10/10/18 10:10 Dose: 100 mg Methylprednisolone (Medrol) 4 mg PO DAILY [facility] Last Admin: 10/10/18 10:17 Dose: 4 mg Montelukast Sodium (Singulair) 10 mg PO [facility] Last Admin: 10/09/18 21:29 Dose: 10 mg Pantoprazole Sodium (Protonix Ec Tab) 40 mg PO 0600 [facility] Last Admin: 10/10/18 05:49 Dose: 40 mg Primidone (Mysoline) 25 mg PO [facility] Last Admin: 10/09/18 21:29 Dose: 25 mg - Labs Labs: 10/10/18 06:00 10/10/18 06:00 PT 10.5 SECONDS (9.4-12.5) 10/06/18 12:40 INR 0.93 10/06/18 12:40 APTT 27.1 Seconds (26.9-38.3) 10/06/18 12:40 - Constitutional Appears: No Acute Distress, Chronically Ill - Eye Exam Pupil Exam: NORMAL ACCOMODATION - ENT Exam ENT Exam: Normal Exam - Respiratory Exam Respiratory Exam: Decreased Breath Sounds, NORMAL BREATHING PATTERN - Cardiovascular Exam Cardiovascular Exam: +S1, +S2 - GI/Abdominal Exam GI & Abdominal Exam: Soft, Normal Bowel Sounds - Neurological Exam Neurological Exam: Alert, Awake Assessment and Plan - Assessment and Plan (Free Text) Plan: ITS Impressions Chest X-Ray 10/06/18 12:36 IMPRESSION: No active disease. Pleural base mass left upper lobe Head CT 10/06/18 12:36 IMPRESSION: No definite interval acute intracranial findings. Stable left parietal craniotomy site and age related neuro degenerative findings. Findings discussed with Dr. Bal with written down and read back verification 10/06/2018 1:08 p.m.. Brain MRI 10/07/18 07:35 IMPRESSION: No acute intracranial findings 83 yr old female with pmh sig for renal cell ca s/p tumor resection, copd, htn, tia an deizures [place] [facility] [place]ness and tingling and left facial numbness admitted for evalaution and treatment [facility] neurology consultaiton and workup as noted above. pt hospital course complicated by drop on O2 levels with activity and with ambulation as low as 84% on room air per discussion with nursing staff and pulmonary consultation was sought with Dr Mcneil. pt will now require continuous home oxygen for her copd. plan of care discussed with IDT All Active Problems Chest pain (Acute) Essential tremor (Acute) Facial nerve palsy (Acute) CAD (coronary artery disease) (Chronic) HTN (hypertension) (Chronic) COPD ( acute) BPCI/TIC - BPCIA/TIC Educated pt/family on BPCIA/CIR/Med to Bed Programs: N/A Flyers given, including CMS Beneficiary letter: N/A Pt/family verbalized understanding & agreed to program: N/A (pt to stay in [facility] with her son)
[2018-10-10 15:13] VITALS: BP 105/57; TEMP 97.8
--- NOTE | 2018-10-10 15:13 | PN ---
DATE: 10/10/2018 PULMONARY PROGRESS NOTE REFERRING PHYSICIAN: Juan Lambert MD. SUBJECTIVE: The patient seen sitting up at bedside. No acute distress. Son is present at bedside. No headache, rhinitis, chest pain, abdominal pain, nausea, vomiting, diarrhea, leg pain and leg swelling reported. The patient does report having occasional cough. Does report having runny nose. OBJECTIVE: GENERAL: No acute distress. VITAL SIGNS: Blood pressure 134/78, pulse 71, temperature 98, oxygen saturation 95 on room air. HEENT: Moist mucous membranes. Crowded airway. NECK: Supple. No JVD. LUNGS: Fair airflow bilaterally. CARDIOVASCULAR: S1 and S2. ABDOMEN: Soft and nontender. No distention. No organomegaly. EXTREMITIES: No bilateral lower extremity edema. NEUROLOGIC: Awake, alert and verbal. Follows commands. MEDICATIONS: Reviewed. Tylenol 650 every 6 hours p.r.n. for mild pain, DuoNeb 3 mL inhalation every 6 hours, aspirin 81 mg daily, Lipitor 20 mg at dinner, Flonase nasal spray at bedtime, Lasix 40 mg daily, Lamictal 200 mg every 12 hours, Keppra 1000 mg every 12 hours, Claritin 10 mg daily, Cozaar 100 mg daily, Medrol 4 mg daily, Singulair 10 mg at bedtime, pantoprazole 40 mg daily and primidone 25 mg at bedtime. LABORATORY DATA: Reviewed. WBC 5, RBC 4.15, hemoglobin 12.4, hematocrit 40.4 and platelet 207. Sodium 140, potassium 4.5, chloride 101, carbon dioxide 32, anion gap 11, BUN 28, creatinine 1.1, GFR 47, random glucose 90, calcium 7.6, total bilirubin 0.3, AST 29, ALT 7, alkaline phosphatase 53, total protein 6.4, albumin 3.7 and globulin 2.8, albumin-globulin ratio 1.3. IMPRESSION AND PLAN: Metastatic renal cell carcinoma, history of nephrectomy, history of metastatic disease to the lung. The patient has been on chemotherapy and radiation therapy, rhinosinusitis, chronic lung disease, status post transient ischemic attack, coronary artery disease, history of craniotomy in the past and seizure disorder. Case discussed with patient's son at bedside. We will start the patient on Flonase nasal spray at bedtime. The patient to go home on supplemental oxygen 3 liters via nasal cannula. Will need pulmonary followup as outpatient, gastric prophylaxis and deep vein thrombosis prophylaxis. Continue inhaled bronchodilators. This patient was seen and examined with Dr. Mcneil. Discussed assessment and plan as described above. This patient was seen and examined with Leonardo Mcgovern, nurse practitioner. Discussed assessment and plan as described above. Thank you for this consult. We will follow with you. Leonardo Mcgovern APN Mario Mcneil MD
[2018-10-10 16:35] VITALS: PULSE 77
[2018-10-10] MEDS ORDERED: Fluticasone Nasal 50 mcg/Spray NS SCH (22:00)
== END 2018-10-10 18:25 | disposition home or self-care (01) | DRG 69 ==
LOC: ED 12:08 → ERH 13:57 → 2RNO 15:49
PROVIDERS: ADMIT Family Medicine; ATTEND Family Medicine
DX: G45.9 Transient cerebral ischemic attack, unspecified (principal); H33.22 Serous retinal detachment, left eye; C78.02 Secondary malignant neoplasm of left lung; C79.51 Secondary malignant neoplasm of bone; R20.2 Paresthesia of skin; R53.1 Weakness; I10 Essential (primary) hypertension; I25.10 Atherosclerotic heart disease of native coronary artery without angina pectoris; J44.9 Chronic obstructive pulmonary disease, unspecified; G40.909 Epilepsy, unspecified, not intractable, without status epilepticus; M81.0 Age-related osteoporosis without current pathological fracture; K40.90 Unilateral inguinal hernia, without obstruction or gangrene, not specified as recurrent; J31.0 Chronic rhinitis; N26.9 Renal sclerosis, unspecified; I44.7 Left bundle-branch block, unspecified; J32.9 Chronic sinusitis, unspecified; E78.5 Hyperlipidemia, unspecified; Z86.73 Personal history of transient ischemic attack (TIA), and cerebral infarction without residual deficits; Z85.528 Personal history of other malignant neoplasm of kidney; Z90.5 Acquired absence of kidney; Z85.828 Personal history of other malignant neoplasm of skin; Z87.891 Personal history of nicotine dependence; Z88.0 Allergy status to penicillin

== ENCOUNTER 2018-11-03 05:08 | Outpatient (CLI) | payer MEDICARE | END 2018-11-03 05:09 | disposition home or self-care (01) | LOC: PET-BROA 05:08 | DX: C64.2 Malignant neoplasm of left kidney, except renal pelvis (principal) ==

== ENCOUNTER → 2018-11-16 | Outpatient (CLI) | payer MEDICARE | LOC: OPLAB 13:36 ==

== ENCOUNTER 2018-12-01 13:00 | Outpatient (CLI) | payer MEDICARE | END 2018-12-01 13:01 | disposition home or self-care (01) | LOC: OPLAB 13:00 | DX: D64.9 Anemia, unspecified (principal); E78.5 Hyperlipidemia, unspecified; E83.40 Disorders of magnesium metabolism, unspecified; M81.0 Age-related osteoporosis without current pathological fracture ==